=== PATIENT | male | born 1975 | race Caucasian/White ===

== ENCOUNTER 2019-09-21 17:46 | Emergency (ER) | payer SELFPAY ==
[2019-09-21] MEDS ORDERED: LACTATED RINGERS 1,000 ML IV STA (18:11)
[2019-09-21 18:17] LABS: BASOPHILS # (AUTO) 0.1 10^3/uL (0.0-0.1); EOSINOPHILS # (AUTO) 0.1 10^3/uL (0.0-0.7); EOSINOPHILS % (AUTO) 1.5 %; LYMPHOCYTES # (AUTO) 2.2 10^3/uL (1.5-3.5); LYMPHOCYTES % (AUTO) 26.9 %; MEAN CORPUSCULAR HGB CONC 33.6 g/dL (32.0-36.0); MEAN PLATELET VOLUME 10.6 fL (7.4-11.4); MONOCYTES # (AUTO) 1.2 10^3/uL (0.0-1.0); MONOCYTES % (AUTO) 14.6 %; NEUTROPHILS # (AUTO) 4.5 10^3/uL (1.5-6.6); NEUTROPHILS % (AUTO) 55.5 %; PLT - PLATELET COUNT 150 10^3/uL (130-450); RED BLOOD COUNT 2.82 10^6/uL (4.70-6.10); RED CELL DISTRIBUTION WIDTH 19.2 % (12.0-15.0); WHITE BLOOD COUNT 8.1 x10^3/uL (4.8-10.8)
[2019-09-21 18:23] LABS: INR 1.3 (0.8-1.2); PT - PROTHROMBIN TIME 14.8 secs (9.9-12.6)
[2019-09-21 18:28] LABS: ALBUMIN 2.8 g/dL (3.2-5.5); ALBUMIN/GLOBULIN RATIO 0.6 (1.0-2.2); ALKALINE PHOSPHATASE 102 IU/L (42-121); ALT ALANINE AMINOTRANSFERASE 46 IU/L (10-60); AST ASPARTATE AMINOTRANSFERASE 80 IU/L (10-42); BILIRUBIN,TOTAL 2.1 mg/dL (0.2-1.0); BUN - BLOOD UREA NITROGEN 7 mg/dL (6-20); CALCIUM 8.9 mg/dL (8.5-10.3); CARBON DIOXIDE - CO2 27 mmol/L (21-32); CHLORIDE 96 mmol/L (101-111); CREATININE 0.8 mg/dL (0.6-1.2); GLUCOSE 104 mg/dL (70-100); LIPASE 38 U/L (22-51); MAGNESIUM 2.2 mg/dL (1.7-2.8); SODIUM 134 mmol/L (135-145); TOTAL PROTEIN 7.4 g/dL (6.7-8.2)
[2019-09-21 18:30] LABS: PARTIAL THROMBOPLASTIN TIME 31.1 secs (24.9-33.3)
[2019-09-21 18:32] LABS: PLATELET ESTIMATE, MANUAL NORMAL (130-450,000) (NORMAL); PLATELET MORPHOLOGY NORMAL APPEARANCE (NORMAL)
--- NOTE | 2019-09-21 18:39 | XRAY Report ---
PROCEDURE: Chest 1 View X-Ray INDICATIONS: chest pain TECHNIQUE: One view of the chest was acquired. COMPARISON: None. FINDINGS: Surgical changes and devices: None. Lungs and pleura: No pleural effusions or pneumothorax. Mild pulmonary vascular congestion is seen. No definite focal infiltrate. Increased bronchovascular markings in bilateral hilar region are noted with mild bronchial wall thickening. Mediastinum: Mediastinal contours appear normal. Heart size is normal. Bones and chest wall: No suspicious bony lesions. Overlying soft tissues appear unremarkable. IMPRESSION: Finding is suggestive of reactive airway disease such as bronchitis or viral pneumonia. No definite f ocal infiltrate. No pleural effusion or pneumothorax. Reviewed by: Bartolo Rajan MD on 09/21/2019 5:38 PM [facility] Approved by: Bartolo Rajan MD on 09/21/2019 5:38 PM [facility] Station ID: [id number]
--- NOTE | 2019-09-21 19:04 | ED Physician Documentation ---
History of Present Illness - Stated complaint Stated Complaint: ABD PX, SWELLING - Chief complaint Chief Complaint: Abd Pain - History obtained from History obtained from: Patient, Friend - Additonal information Additional information: 43-year-old male presents to the emergency department for evaluation welling and shortness of breath. [place] He reports that he used to be a heavy drinker but quit drinking about 3 to 4 weeks ago. Since then he has noticed that he has had progressive abdominal swelling. He denies that he ever had any type of belly swelling before 1 month ago. In addition to the abdominal swelling he has began to have sharp shooting abdominal pains. He finds that he is labored simply climbing stairs or doing general activities of daily living. He is an active tobacco user but is slowly cutting back. He was told once in the past that he had problems with his liver but due to finances and lack of insurance did not follow-up. He denies taking any scheduled medications. Patient denies any fevers or cough. He denies any chest pain. He denies any black or bloody stools. Review of Systems Constitutional: denies: Fever, Chills, Myalgias Nose: denies: Congestion, Epistaxis Cardiac: reports: Pedal edema. denies: Chest pain / pressure, Palpitations, Calf pain Respiratory: reports: Dyspnea. denies: Cough, Hemoptysis, Wheezing GI: reports: Abdominal Pain, Abdominal Swelling. denies: Nausea, Vomiting, Diarrhea, Hematemesis, Bloody / black stool : denies: Dysuria, Frequency Musculoskeletal: denies: Neck pain, Extremity pain Neurologic: denies: Generalized weakness, Focal weakness, Numbness, Syncope, Seizure, Confused, Altered mental status Psychiatric: denies: Depressed PD PAST MEDICAL HISTORY - Past Medical History Past Medical History: Yes GI: Cirrhosis - Past Surgical History Past Surgical History: No - Present Medications Home Medications: Ambulatory Orders Medication Instructions Recorded Confirmed Spironolactone [Aldactone] 50 mg PO BID #60 tablet 09/21/19 - Allergies Allergies/Adverse Reactions: Allergies Allergy/AdvReac Type Severity Reaction Status Date / Time No Known Drug Allergies Allergy Verified 09/21/19 18:00 - Social History Does the pt smoke?: No Smoking Status: Never smoker Does the pt drink ETOH?: Yes Does the pt have substance abuse?: No PD ED PE EXPANDED - General General: Alert, Anxious - Eyes Eyes: PERRL, Other (no scleral icterus) - Neck Neck: Supple w/out meningeal sx, No tenderness. No: Adenopathy, Limited ROM - Cardiac Cardiac: Tachy, Radial strong equal, Femoral strong equal, Pedal strong equal, Cap refill < 2 sec. No: Murmur Present - Respiratory Respiratory: Clear to ausultation bianka, Labored. No: Distress - Abdomen Abdomen: Normal Bowel sounds, Distended, Tender to palpation (Generally tender to palpation but no guarding or rebound. Non-peritoneal exam), Generalized/diffuse, Hepatomegaly. No: Rebound, Guarding, Surgical scars - Back Back: Normal exam - Derm Derm: Normal color, Warm and dry, Other (Stigmata of ascites and cirrhosis on chest and abdomen). No: Jaundiced - Neuro Neuro: Alert and Oriented X 3, CNII-XII intact, Normal finger nose, Normal speech - GCS Eye Opening: Spontaneous Motor: Obeys Commands Verbal: Oriented Total: 15 Results - Vitals Vitals: Vital Signs - 24 hr 09/21/19 09/21/19 09/21/19 17:54 18:30 19:00 Temperature 36.8 C Heart Rate 142 H 119 H 117 H Respiratory 20 15 18 Rate Blood Pressure 140/86 H 135/90 H 125/92 H O2 Saturation 100 100 100 09/21/19 09/21/19 09/21/19 19:48 20:00 20:30 Temperature Heart Rate 112 H 102 H 99 Respiratory 15 16 11 L Rate Blood Pressure 116/82 H 118/84 H 119/87 H O2 Saturation 100 100 100 09/21/19 09/21/19 09/21/19 21:00 21:30 22:23 Temperature Heart Rate 108 H 106 H 105 H Respiratory 17 16 16 Rate Blood Pressure 122/89 H 106/75 107/76 O2 Saturation 100 100 100 Oxygen O2 Source Room air - EKG (time done) 1821 Rate: Rate (enter#) (123), Tachy, Other Rhythm: Sinus tachycardia [place]: Normal Intervals: Normal CT QRS: Normal Ischemia: Normal ST segments Compare to prior EKG: Old EKG unavailable Computer interpretation: Agree with computer - Labs Labs: Microbiology 09/21/19 20:00 Body Fluid Culture - Preliminary Other - Abdominal Laboratory Tests 09/21/19 09/21/19 09/21/19 18:06 18:06 18:06 WBC 8.1 RBC 2.82 L Hgb 11.0 L Hct 32.7 L MCV 116.0 H MCH 39.0 H MCHC 33.6 RDW 19.2 H Plt Count 150 MPV 10.6 Neut # (Auto) 4.5 Lymph # (Auto) 2.2 Long # (Auto) 1.2 H Eos # (Auto) 0.1 Baso # (Auto) 0.1 Absolute Nucleated RBC 0.00 Nucleated RBC % 0.0 Manual Slide Review Indicated WBC Morphology NORMAL APPEARANCE Platelet Estimate NORMAL (130-450,000) Platelet Morphology NORMAL APPEARANCE RBC Morph Micro Appear 1+ POLYCHROMASIA PT 14.8 H INR 1.3 H APTT 31.1 Sodium 134 L Potassium 3.4 L Chloride 96 L Carbon Dioxide 27 Anion Gap 11.0 BUN 7 Creatinine 0.8 Estimated GFR (MDRD) 105 Glucose 104 H Lactic Acid Calcium 8.9 Magnesium 2.2 Total Bilirubin 2.1 H AST 80 H ALT 46 Alkaline Phosphatase 102 Ammonia B-Natriuretic Peptide Total Protein 7.4 Albumin 2.8 L Globulin 4.6 H Albumin/Globulin Ratio 0.6 L Lipase 38 Fluid Source Fluid Color Fluid Clarity Fluid WBC Fluid RBC Fluid Neutrophils % Fluid Lymphocytes % Fluid Monocytes % Fld Mesothelial Cell % Ethyl Alcohol < 5.0 09/21/19 09/21/19 09/21/19 18:06 18:06 19:21 WBC RBC Hgb Hct MCV MCH MCHC RDW Plt Count MPV Neut # (Auto) Lymph # (Auto) Long # (Auto) Eos # (Auto) Baso # (Auto) Absolute Nucleated RBC Nucleated RBC % Manual Slide Review WBC Morphology Platelet Estimate Platelet Morphology RBC Morph Micro Appear PT INR APTT Sodium Potassium Chloride Carbon Dioxide Anion Gap BUN Creatinine Estimated GFR (MDRD) Glucose Lactic Acid 1.5 Calcium Magnesium Total Bilirubin AST ALT Alkaline Phosphatase Ammonia < 10.0 B-Natriuretic Peptide 128 H Total Protein Albumin Globulin Albumin/Globulin Ratio Lipase Fluid Source Fluid Color Fluid Clarity Fluid WBC Fluid RBC Fluid Neutrophils % Fluid Lymphocytes % Fluid Monocytes % Fld Mesothelial Cell % Ethyl Alcohol 09/21/19 20:00 WBC RBC Hgb Hct MCV MCH MCHC RDW Plt Count MPV Neut # (Auto) Lymph # (Auto) Long # (Auto) Eos # (Auto) Baso # (Auto) Absolute Nucleated RBC Nucleated RBC % Manual Slide Review WBC Morphology Platelet Estimate Platelet Morphology RBC Morph Micro Appear PT INR APTT Sodium Potassium Chloride Carbon Dioxide Anion Gap BUN Creatinine Estimated GFR (MDRD) Glucose Lactic Acid Calcium Magnesium Total Bilirubin AST ALT Alkaline Phosphatase Ammonia B-Natriuretic Peptide Total Protein Albumin Globulin Albumin/Globulin Ratio Lipase Fluid Source PERITONEAL Fluid Color YELLOW Fluid Clarity TURBID Fluid WBC 82 Fluid RBC 3000 Fluid Neutrophils % 68 Fluid Lymphocytes % 29 Fluid Monocytes % 3 Fld Mesothelial Cell % Not Reportable Ethyl Alcohol - Rads (name of study) cxr Radiology: Final report received (Findings suggestive of reactive airway disease such as bronchitis or viral pneumonia no definite focal infiltrate no pleural effusion or pneumothorax) Procedures - Paracentesis Preparation: Consent obtained, Ultrasound guidance, Sterile prep and drape, Local anesthesia Location: RLQ Technique: Z-tract, Catheter over needle Fluid: Clear, Sent for cell count, Sent for gram stain, Sent for culture, Sent for protein, Volume - enter cc (6000) Aftercare: No complications, Patient tolerated well, Dressing applied PD MEDICAL DECISION MAKING - ED course Complexity details: reviewed results, d/w patient ED course: 43-year-old male presents to the emergency department with reported 1 month of abdominal swelling and very apparent ascites on exam. He does report a longstanding history of alcohol abuse but states that he quit drinking approximately 1 month ago. Due to the abdominal swelling he had begun to have increased dyspnea. - On laboratory findings he is noted to have preserved renal function. He does have an AST elevation of 80. And his bilirubin is 2.1. He does not have any signs of systemic jaundice. His BNP is mildly elevated and his chest x-ray does not show any signs of pulmonary edema. I do believe that the dyspnea is most likely related to the large volume of ascites in his abdomen. His ammonia level is normnal and he has no altered mentation - ECG shows sinus tachycardia and he has a negative high sensitivity troponin. He has denies any chest pain - Patient has never had any work-up or treatment of his cirrhosis and now ascites. Given the labored breathing and the volume of ascites we decided to proceed with a therapeutic and diagnostic paracentesis. -Patient's gram stain of the peritoneal fluid is negative. There were no PMNs in the fluid. I confirmed this by speaking with the laboratory department. At this time it does not appear that the patient meets the criteria for SBP despite having fluid described as turbid. In addition this gentleman does not have any leukocytosis or fever. I have discussed this case with the on-call night hospitalist and he also agrees that the ascitic fluid does not meet the criteria for SBP. - Patient's dyspnea has improved markedly since the paracentesis was completed. His heart rate has improved to now just above 100. He is not hypoxic. I have discussed the ascites and diagnosis of cirrhosis with him and his partner. I have also notified them that they need very close follow-up with a primary care doctor and long-term referral to a egg trayer. We will initiate this gentleman on Aldactone. - Explicit return precautions were discussed for any worsening belly pain, development of any fever, black or bloody stools or worsening labored breathing Departure - Departure Disposition: 01 Home, Self Care Clinical Impression: S/P abdominal paracentesis Cirrhosis Qualifiers: Hepatic cirrhosis type: alcoholic cirrhosis Ascites presence: with ascites Qualified Code(s): K70.31 - Alcoholic cirrhosis of liver with ascites Condition: Serious Record reviewed to determine appropriate education?: Yes Instructions: Cirrhosis, Cirrhosis Tx Prescriptions: Spironolactone [Aldactone] 50 mg PO BID #60 tablet Comments: Hiram you have developed cirrhosis of the liver as a long-term complication of drinking. You have now developed ascites which is fluid accumulation within the belly. We have drained 6 L of fluid from your belly today. It does not at this time appear to be infected but we are sending it for a culture to make sure. It is very important that you schedule an appointment with a primary care doctor within the next week. You will need long-term referral and evaluation by a egg trayer. I have also started you on a medication called aldactone this will be used to help reduce your fluid retention. Please take twice a day as prescribed. If it anytime you develop a fever, have worsening belly pain, black or bloody stools feel faint or lightheaded please return immediately to the emergency department.
[2019-09-21] MEDS ORDERED: BUFFERED LIDOCAINE 10 ML SYRINGE IU ONE (19:47)
[2019-09-21 20:51] LABS: CC,BF RBC 3000 /mm^3
[2019-09-21 20:52] LABS: BF CLARITY TURBID; BF COLOR YELLOW; BF SOURCE PERITONEAL
[2019-09-21] MEDS ORDERED: fentaNYL 100 MCG/2 ML VIAL IVP STA (21:41)
[2019-09-21 21:44] LABS: LYMPHOCYTES %,BODY FLUID 29 %; MONOCYTES %,BODY FLUID 3 %
[2019-09-21 22:35] VITALS: BP 103/82
== END 2019-09-21 22:45 | disposition home or self-care (01) ==
LOC: ED 17:46
DX: K70.31 Alcoholic cirrhosis of liver with ascites (principal); F10.21 Alcohol dependence, in remission; R00.0 Tachycardia, unspecified; F17.200 Nicotine dependence, unspecified, uncomplicated
CPT/HCPCS: 36415; 49083; 71045; 80053; 80320; 81599; 82140; 83605; 83690; 83735; 83880; 85025; 85610; 85730; 87070; 87205; 89051; 93005; 96361; 96374; 99284; J7120; 84157

== ENCOUNTER 2019-10-04 15:32 | Emergency (ER) | payer MEDICAID ==
--- NOTE | 2019-10-04 16:59 | ED Physician Documentation ---
PD HPI ABD PAIN - Stated complaint Stated Complaint: ABD SWELLING - Chief complaint Chief Complaint: Abd Pain - History obtained from History obtained from: Patient, Family - History of Present Illness Timing - onset: How many days ago (5) Timing - duration: Weeks Timing - details: Gradual onset, Still present Quality: Dull, Pain Location: All over / everywhere Improved by: Laying still Worsened by: Eating, Moving, Breathing, Position, Palpation Associated symptoms: Nausea. No: Vomiting Similar symptoms before: Diagnosis (ascites) Recently seen: Clinic, Emergency Dept - Additional information Additional information: 43-year-old male with a history of recently diagnosed cirrhosis with ascites returns to the emergency department today with reaccumulation of his ascites and some difficulty breathing. He is very uncomfortable at night has not been able to sleep for the past 3 nights and he is seeking drainage. He has been in to see Dr. Zepeda he is on 100 mg of Spironolactone daily and he is not on Lasix. He has not had follow-up with GI as yet. Review of Systems Constitutional: reports: Fatigue. denies: Fever, Chills Eyes: denies: Decreased vision Ears: denies: Ear pain Nose: denies: Rhinorrhea / runny nose, Congestion Throat: denies: Sore throat Cardiac: reports: Pedal edema. denies: Chest pain / pressure, Palpitations, Calf pain Respiratory: reports: Dyspnea. denies: Cough GI: reports: Abdominal Pain, Nausea : denies: Dysuria, Frequency Skin: denies: Rash Musculoskeletal: denies: Neck pain, Back pain, Extremity pain Neurologic: reports: Generalized weakness. denies: Focal weakness, Numbness PD PAST MEDICAL HISTORY - Past Medical History Cardiovascular: None Respiratory: None Endocrine/Autoimmune: None GI: Cirrhosis : None HEENT: None Psych: None Musculoskeletal: None Derm: None - Past Surgical History Past Surgical History: No Derm: Skin grafts - Present Medications Home Medications: Ambulatory Orders Medication Instructions Recorded Confirmed Spironolactone [Aldactone] 50 mg PO BID #60 tablet 09/21/19 Furosemide [Lasix] 40 mg PO DAILY #20 tablet 10/04/19 - Allergies Allergies/Adverse Reactions: Allergies Allergy/AdvReac Type Severity Reaction Status Date / Time No Known Drug Allergies Allergy Verified 09/21/19 18:00 - Social History Does the pt smoke?: Yes Smoking Status: Current every day smoker Does the pt drink ETOH?: No Does the pt have substance abuse?: No - Immunizations Immunizations are current?: Yes PD ED PE NORMAL - Vitals Vital signs reviewed: Yes (tachy and hypertensive) - General General: Alert and oriented X 3, Well developed/nourished, Other (grunting with breaths) - HEENT HEENT: Atraumatic, PERRL, EOMI - Neck Neck: Supple, no meningeal sign, No bony TTP - Cardiac Cardiac: No murmur, Other (tachy to 120) - Respiratory Respiratory: No respiratory distress, Clear bilaterally - Abdomen Abdomen: Other (marked distention with a fluid wave and caput. Mild generalized tenderness) - Back Back: No CVA TTP, No spinal TTP - Derm Derm: Normal color, Warm and dry, No rash - Extremities Extremities: No deformity, No calf tenderness / cord, Other (trace edema ) - Neuro Neuro: Alert and oriented X 3, band teacher 2-12 intact, No motor deficit, No sensory deficit, Normal speech Eye Opening: Spontaneous Motor: Obeys Commands Verbal: Oriented GCS Score: 15 - Psych Psych: Normal mood, Normal affect Results - Vitals Vitals: Vital Signs - 24 hr 10/04/19 10/04/19 10/04/19 15:44 16:20 18:00 Temperature 36.7 C 36.3 C L Heart Rate 128 H 120 H 112 H Respiratory 16 20 18 Rate Blood Pressure 132/96 H 148/100 H 134/96 H O2 Saturation 100 100 10/04/19 18:59 Temperature Heart Rate 108 H Respiratory 19 Rate Blood Pressure 134/96 H O2 Saturation 100 Oxygen O2 Source Room air - Labs Labs: Laboratory Tests 10/04/19 10/04/19 10/04/19 16:55 16:55 16:55 WBC 5.7 RBC 2.97 L Hgb 11.3 L Hct 33.7 L MCV 113.5 H MCH 38.0 H MCHC 33.5 RDW 16.2 H Plt Count 175 MPV 10.1 Neut # (Auto) 3.1 Lymph # (Auto) 1.7 [place] # (Auto) 0.7 Eos # (Auto) 0.1 Baso # (Auto) 0.1 Absolute Nucleated RBC 0.00 Nucleated RBC % 0.0 Manual Slide Review Indicated Platelet Estimate NORMAL (130-450,000) Platelet Morphology NORMAL APPEARANCE RBC Morph Micro Appear 1+ MACROCYTOSIS PT 16.1 H INR 1.4 H Sodium 130 L Potassium 4.2 Chloride 98 L Carbon Dioxide 25 Anion Gap 7.0 BUN 6 Creatinine 0.9 Estimated GFR (MDRD) 92 Glucose 97 Calcium 8.5 Total Bilirubin 1.8 H AST 50 H ALT 32 Alkaline Phosphatase 74 Ammonia Total Protein 6.9 Albumin 2.7 L Globulin 4.2 Albumin/Globulin Ratio 0.6 L Lipase 34 Fluid Source Fluid Color Fluid Clarity Fluid WBC Fluid RBC Fluid Neutrophils % Fluid Lymphocytes % Fluid Monocytes % Fluid Macrophages % Fld Mesothelial Cell % Ethyl Alcohol < 5.0 10/04/19 10/04/19 16:55 18:52 WBC RBC Hgb Hct MCV MCH MCHC RDW Plt Count MPV Neut # (Auto) Lymph # (Auto) [place] # (Auto) Eos # (Auto) Baso # (Auto) Absolute Nucleated RBC Nucleated RBC % Manual Slide Review Platelet Estimate Platelet Morphology RBC Morph Micro Appear PT INR Sodium Potassium Chloride Carbon Dioxide Anion Gap BUN Creatinine Estimated GFR (MDRD) Glucose Calcium Total Bilirubin AST ALT Alkaline Phosphatase Ammonia < 10.0 Total Protein Albumin Globulin Albumin/Globulin Ratio Lipase Fluid Source PERITONEAL Fluid Color YELLOW Fluid Clarity HAZY Fluid WBC 93 Fluid RBC < 2000 Fluid Neutrophils % 7.0 Fluid Lymphocytes % 12.0 Fluid Monocytes % 6.0 Fluid Macrophages % 75.0 Fld Mesothelial Cell % 0 Ethyl Alcohol Procedures - Paracentesis Preparation: Consent obtained, Ultrasound guidance, Sterile prep and drape, Local anesthesia Location: LLQ Technique: Z-tract, Catheter over needle Fluid: Cloudy, Sent for cell count, Sent for gram stain, Sent for culture, Volume - enter cc (9500) Aftercare: No complications, Patient tolerated well, Dressing applied, Bleeding - comment (none), Fluid leak - comment (none) PD MEDICAL DECISION MAKING - ED course Complexity details: reviewed old records, reviewed results, re-evaluated patient, considered differential, d/w patient, d/w family ED course: 43-year-old male with tense ascites has paracentesis performed with drainage of 9500 mls of fluid. He tolerated this well and is administered 50 g of albumin. We will place him on 40 mg of Lasix in addition to the 100 mg of spironolactone that he is currently taking. Today blood work for hepatitis C is obtained and he will follow-up with his primary while awaiting follow-up with GI. Departure - Departure Disposition: 01 Home, Self Care Clinical Impression: S/P abdominal paracentesis Cirrhosis Qualifiers: Hepatic cirrhosis type: alcoholic cirrhosis Ascites presence: with ascites Qualified Code(s): K70.31 - Alcoholic cirrhosis of liver with ascites Condition: Stable Instructions: Paracentesis, ED Ascites, ED Cirrhosis Liver, ED Diet Low Salt 2Gm Follow-Up: BRIELLE ZEPEDA MD [Primary Care Provider] - Prescriptions: Furosemide [Lasix] 40 mg PO DAILY #20 tablet Comments: Today we are adding Lasix as an additional medication and this is another diuretic. It will make you urinate frequently. The recommendation is to take both the spironalactone and the lasix together in the morning. Weigh yourself daily and bring the results to Dr. Zepeda. The low sodium diet is very important to making this work. Even with good diuresis you may require paracentesis every 2 weeks. This can be done as an outpatient.
[2019-10-04 17:02] LABS: BASOPHILS # (AUTO) 0.1 10^3/uL (0.0-0.1); BASOPHILS % (AUTO) 0.9 %; EOSINOPHILS # (AUTO) 0.1 10^3/uL (0.0-0.7); EOSINOPHILS % (AUTO) 2.5 %; HGB - HEMOGLOBIN 11.3 g/dL (14.0-18.0); LYMPHOCYTES # (AUTO) 1.7 10^3/uL (1.5-3.5); LYMPHOCYTES % (AUTO) 30.3 %; MEAN CORPUSCULAR HGB CONC 33.5 g/dL (32.0-36.0); MEAN CORPUSCULAR VOLUME 113.5 fL (80.0-94.0); MEAN PLATELET VOLUME 10.1 fL (7.4-11.4); MONOCYTES # (AUTO) 0.7 10^3/uL (0.0-1.0); MONOCYTES % (AUTO) 11.4 %; NEUTROPHILS # (AUTO) 3.1 10^3/uL (1.5-6.6); NEUTROPHILS % (AUTO) 54.5 %; PLT - PLATELET COUNT 175 10^3/uL (130-450); RED BLOOD COUNT 2.97 10^6/uL (4.70-6.10); RED CELL DISTRIBUTION WIDTH 16.2 % (12.0-15.0); WHITE BLOOD COUNT 5.7 x10^3/uL (4.8-10.8)
[2019-10-04 17:11] LABS: INR 1.4 (0.8-1.2); PT - PROTHROMBIN TIME 16.1 secs (9.9-12.6)
[2019-10-04 17:16] LABS: ALBUMIN 2.7 g/dL (3.2-5.5); ALBUMIN/GLOBULIN RATIO 0.6 (1.0-2.2); ALKALINE PHOSPHATASE 74 IU/L (42-121); ALT ALANINE AMINOTRANSFERASE 32 IU/L (10-60); AST ASPARTATE AMINOTRANSFERASE 50 IU/L (10-42); BILIRUBIN,TOTAL 1.8 mg/dL (0.2-1.0); BUN - BLOOD UREA NITROGEN 6 mg/dL (6-20); CALCIUM 8.5 mg/dL (8.5-10.3); CARBON DIOXIDE - CO2 25 mmol/L (21-32); CHLORIDE 98 mmol/L (101-111); CREATININE 0.9 mg/dL (0.6-1.2); GLUCOSE 97 mg/dL (70-100); LIPASE 34 U/L (22-51); SODIUM 130 mmol/L (135-145); TOTAL PROTEIN 6.9 g/dL (6.7-8.2)
[2019-10-04 17:36] LABS: PLATELET ESTIMATE, MANUAL NORMAL (130-450,000) (NORMAL); PLATELET MORPHOLOGY NORMAL APPEARANCE (NORMAL); RBC MORPHOLOGY (MULTIPLE) 1+ MACROCYTOSIS (NORMAL)
[2019-10-04] MEDS ORDERED: ALBUMIN 25% 12.5 GM/50 ML VIAL IV STA ×4 (18:56→18:59)
[2019-10-04 19:21] LABS: BF CLARITY HAZY; BF SOURCE PERITONEAL; CC,BF RBC < 2000 /mm^3
[2019-10-04 19:22] LABS: BF COLOR YELLOW
[2019-10-04 19:56] LABS: MESOTHELIAL %, BF 0 %
[2019-10-05 00:30] VITALS: BP 118/79
[2019-10-05 13:46] LABS: HEPATITIS C ANTIBODY NON-REACTIVE (NON-REACTIVE)
== END 2019-10-05 00:29 | disposition home or self-care (01) ==
LOC: ED 15:32
DX: K70.31 Alcoholic cirrhosis of liver with ascites (principal); R00.0 Tachycardia, unspecified; R03.0 Elevated blood-pressure reading, without diagnosis of hypertension; F17.200 Nicotine dependence, unspecified, uncomplicated
CPT/HCPCS: 36415; 49083; 80053; 80320; 82140; 83690; 85025; 85610; 86803; 87070; 87205; 89051; 96365; 96366; 99284; P9047

== ENCOUNTER 2019-10-10 07:57 | Outpatient (CLI) | payer MEDICAID ==
[2019-10-10 12:17] LABS: BASOPHILS # (AUTO) 0.1 10^3/uL (0.0-0.1); BASOPHILS % (AUTO) 1.1 %; EOSINOPHILS # (AUTO) 0.3 10^3/uL (0.0-0.7); EOSINOPHILS % (AUTO) 2.9 %; HGB - HEMOGLOBIN 12.3 g/dL (14.0-18.0); LYMPHOCYTES # (AUTO) 2.7 10^3/uL (1.5-3.5); LYMPHOCYTES % (AUTO) 30.1 %; MEAN CORPUSCULAR HEMOGLOBIN 36.2 pg (27.0-31.0); MEAN CORPUSCULAR HGB CONC 32.3 g/dL (32.0-36.0); MEAN CORPUSCULAR VOLUME 112.1 fL (80.0-94.0); MEAN PLATELET VOLUME 11.1 fL (7.4-11.4); MONOCYTES # (AUTO) 0.8 10^3/uL (0.0-1.0); MONOCYTES % (AUTO) 8.7 %; NEUTROPHILS # (AUTO) 5.1 10^3/uL (1.5-6.6); NEUTROPHILS % (AUTO) 56.9 %; PLT - PLATELET COUNT 207 10^3/uL (130-450)
[2019-10-10 12:34] LABS: PLATELET ESTIMATE, MANUAL NORMAL (130-450,000) (NORMAL); PLATELET MORPHOLOGY NORMAL APPEARANCE (NORMAL); RBC MORPHOLOGY (MULTIPLE) 2+ MACROCYTOSIS (NORMAL)
[2019-10-10 12:35] LABS: ALBUMIN 3.3 g/dL (3.2-5.5); ALBUMIN/GLOBULIN RATIO 0.6 (1.0-2.2); ALKALINE PHOSPHATASE 106 IU/L (42-121); ALT ALANINE AMINOTRANSFERASE 41 IU/L (10-60); AST ASPARTATE AMINOTRANSFERASE 57 IU/L (10-42); BILIRUBIN,TOTAL 1.4 mg/dL (0.2-1.0); BUN - BLOOD UREA NITROGEN 12 mg/dL (6-20); CALCIUM 9.1 mg/dL (8.5-10.3); CARBON DIOXIDE - CO2 27 mmol/L (21-32); CHLORIDE 96 mmol/L (101-111); CHOL/HDL RATIO 5.4 (<5.0); CHOLESTEROL 129 mg/dL; GLUCOSE 119 mg/dL (70-100); HDL CHOLESTEROL 24 mg/dL; LDL CHOLESTEROL,CALCULATED 90 mg/dL; LDL/HDL RATIO 3.8 (<3.6); SODIUM 131 mmol/L (135-145); TOTAL PROTEIN 8.4 g/dL (6.7-8.2); VLDL CHOLESTEROL 15 mg/dL
== END 2019-10-10 23:59 | disposition home or self-care (01) ==
LOC: LAB.WCP 07:57
PROVIDERS: ATTEND Family Medicine
DX: K74.60 Unspecified cirrhosis of liver (principal)
CPT/HCPCS: 36415; 80050; 80061; 83721; 83880

== ENCOUNTER 2020-02-23 19:51 | Outpatient (CLI) | payer MEDICAID | END 2020-02-23 19:52 | disposition home or self-care (01) | LOC: COV 19:51 | PROVIDERS: ATTEND Surgery | DX: Z01.812 Encounter for preprocedural laboratory examination (principal); Z20.822 Contact with and (suspected) exposure to COVID-19; K40.90 Unilateral inguinal hernia, without obstruction or gangrene, not specified as recurrent ==

== ENCOUNTER 2020-02-27 09:16 | Day surgery (SDC) | payer MEDICAID ==
[2020-02-27] MEDS ORDERED: ceFAZolin 2 GM/50 ML 2 GM/50 ML BAG IV ONE (09:23)
[2020-02-27] MEDS ORDERED: LACTATED RINGERS 1,000 ML IV ONE ×2 (09:51→13:34)
[2020-02-27] MEDS ORDERED: ATROPINE ABBOJECT 1 MG/10 ML SYRINGE IVP PRN (09:57)
[2020-02-27] MEDS ORDERED: MORPHINE 2 MG/ML CARPUJECT IVP PRN (09:57)
[2020-02-27] MEDS ORDERED: ePHEDrine 50 MG/ML VIAL IVP PRN (09:57)
[2020-02-27] MEDS ORDERED: HYDROmorphone 0.5 MG/0.5 ML SYRINGE IVP PRN (09:57)
[2020-02-27] MEDS ORDERED: ONDANSETRON 4 MG/2 ML VIAL IVP PRN (09:57)
[2020-02-27] MEDS ORDERED: fentaNYL 100 MCG/2 ML VIAL IVP PRN (09:57)
[2020-02-27] MEDS ORDERED: NALOXONE 0.4 MG/ML VIAL IVP PRN (09:57)
[2020-02-27] MEDS ORDERED: LACTATED RINGERS 1,000 ML IV SCH (10:00)
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
[2020-02-27] MEDS ORDERED: BUPIVACAINE 0.25% PF 30 ML VIAL ONE (11:38)
[2020-02-27] MEDS ORDERED: BUPIVACAINE 0.25% PF 30 ML VIAL SUBQ ONE (11:45)
[2020-02-27] MEDS ORDERED: MIDAZOLAM 2 MG/2 ML VIAL ONE (11:47)
[2020-02-27] MEDS ORDERED: PROPOFOL 200 MG/20 ML VIAL IVP ONE (11:47)
[2020-02-27] MEDS ORDERED: fentaNYL 100 MCG/2 ML VIAL ONE (11:47)
[2020-02-27] MEDS ORDERED: LIDOCAINE-MPF 2% 5 ML VIAL ONE (11:47)
[2020-02-27] MEDS ORDERED: DEXAMETHASONE 4 MG/ML VIAL ONE (13:08)
[2020-02-27] MEDS ORDERED: ONDANSETRON 4 MG/2 ML VIAL ONE (13:08)
[2020-02-27 13:49] VITALS: BP 114/77
[2020-02-27] MEDS ORDERED: oxyCODONE 5 MG TABLET PO PRN (13:49)
--- NOTE | 2020-02-27 14:04 | OPERATIVE REPORT ---
Operative Report - General Procedure Date: 02/27/20 Planned Procedure: open right inguinal hernia repair with mesh Pre-Op Diagnosis: rih Procedure Performed: open rih repair with mesh Post Op Diagnosis: rih, incarcerated - Procedure Note Primary Surgeon: roger cardona Anesthesia Technique: General LMA, Local Estimated Blood Loss (mL): 0 Findings: large direct Complications: none
--- NOTE | 2020-02-27 14:50 | OPERATIVE REPORT ---
DATE OF SERVICE: 02/27/2020 Physician: Fermin Sy MD PREOPERATIVE DIAGNOSIS: Right inguinal hernia. POSTOPERATIVE DIAGNOSIS: Right inguinal hernia, large incarcerated direct. PROCEDURE: Open right inguinal hernia repair with mesh, Domenica. SURGEON: Fermin Sy MD APPLICATION SECURITY SPECIALIST: None. ANESTHESIA 1. Laryngeal mask anesthesia. 2. Local anesthesia with Marcaine. COMPLICATIONS: None. SPECIMEN: Herniated preperitoneal adipose tissue removed; however, not sent for pathology. FINDINGS: Large incarcerated direct inguinal hernia. No indirect component. Typical nerve anatomy, which was carefully protected and preserved. INDICATIONS FOR PROCEDURE: The patient is a 44-year-old gentleman who fairly recently had significant ascites. He has quit drinking alcohol and his ascites is much improved. He has a symptomatic right inguinal hernia with intestine clinically. He presents for open repair with mesh. Risks discussed, alternatives discussed. All questions answered and consent obtained. DETAILS OF PROCEDURE: The patient was properly identified and brought to the operating room and placed in supine position. Laryngeal mask anesthesia was induced. He was prepped and draped in a sterile fashion, given preoperative antibiotics. Local anesthetic was given throughout the procedure. A 5 cm incision was made in the direction of Laurel's lines just cephalad of the pubic tubercle. Dissection proceeded with cutting current. The superficial epigastric vein was identified, clamped, divided, and tied with 3-0 Vicryl. Dissection proceeded down to the aponeurosis. The aponeurosis was opened in the direction of its fibers extending to the external ring. The ilioinguinal nerve was kept with the cord structures. The cord structures were mobilized and brought up. He had a large direct hernia bulge densely scarred to the cord structures. This was carefully peeled off from the cord structures. The direct inguinal hernia or floor was repaired and reduced with a 2-0 silk pursestring suture. Polypropylene mesh was then cut to size and with tails. The mesh was secured with multiple interrupted 0 Ethibond sutures. Sutures were placed at the pubic tubercle along the shelving border of Poupart's ligament and medially along the musculature or fascia of the internal oblique. The iliohypogastric nerve lay just medial to the mesh. The medial tail of the mesh was secured to the shelving border of Poupart's ligament with 2 interrupted 0 Ethibond sutures, recreating the internal ring of appropriate size. The aponeurosis was closed with a running 2-0 Vicryl. Chato's was closed with interrupted 3-0 Vicryl suture. Buried interrupted subdermal 3-0 Vicryl sutures were then placed. Skin was closed with a running 4-0 Monocryl subcuticular suture. Dressing was applied. He tolerated the procedure very well. TD: 02/27/2020 14:11 [facility]
--- NOTE | 2020-02-27 14:58 | ANESTHESIA POST OP EVALUATION ---
Anesthesia Post Eval - Post Anesthesia Eval Vitals: Last Vital Signs Temp 37.4 C 02/27/20 13:48 Pulse 89 02/27/20 13:48 Resp 18 02/27/20 13:48 BP 114/77 02/27/20 13:48 Pulse Ox 100 02/27/20 13:48 CV Function Including HR & BP: positive: Stable Pain Control: positive: Satisfactory Nausea & Vomiting: positive: Negative Mental Status: positive: Baseline Respiratory Status: Airway Patent Hydration Status: Satisfactory
== END 2020-02-27 09:17 | disposition home or self-care (01) ==
LOC: SDS 09:16
PROVIDERS: ATTEND Surgery
DX: K40.30 Unilateral inguinal hernia, with obstruction, without gangrene, not specified as recurrent (principal); F17.210 Nicotine dependence, cigarettes, uncomplicated; F10.11 Alcohol abuse, in remission; K74.60 Unspecified cirrhosis of liver; G62.9 Polyneuropathy, unspecified; E66.3 Overweight; Z68.27 Body mass index [BMI] 27.0-27.9, adult
CPT/HCPCS: 49507; C1781; J0690; J7120

== ENCOUNTER 2020-03-29 12:37 | Outpatient (CLI) | payer MEDICAID | END 2020-03-29 12:38 | disposition home or self-care (01) | LOC: COV 12:37 | PROVIDERS: ATTEND Surgery | DX: Z01.812 Encounter for preprocedural laboratory examination (principal); K42.9 Umbilical hernia without obstruction or gangrene; Z20.822 Contact with and (suspected) exposure to COVID-19 ==

== ENCOUNTER 2020-04-02 07:39 | Day surgery (SDC) | payer MEDICAID ==
[2020-04-02] MEDS ORDERED: ceFAZolin 2 GM/50 ML 2 GM/50 ML BAG IV ONE (07:56)
[2020-04-02] MEDS ORDERED: LACTATED RINGERS 1,000 ML IV ONE ×2 (07:57→10:50)
[2020-04-02] MEDS ORDERED: LIDOCAINE-MPF 2% 5 ML VIAL ONE (08:21)
[2020-04-02] MEDS ORDERED: MIDAZOLAM 2 MG/2 ML VIAL ONE (08:21)
[2020-04-02] MEDS ORDERED: fentaNYL 100 MCG/2 ML VIAL ONE (08:21)
[2020-04-02] MEDS ORDERED: PROPOFOL 200 MG/20 ML VIAL IVP ONE ×2 (08:21→09:44)
[2020-04-02] MEDS ORDERED: KETOROLAC 30 MG/ML VIAL ONE (08:22)
[2020-04-02] MEDS ORDERED: DEXAMETHASONE 4 MG/ML VIAL ONE (08:22)
[2020-04-02] MEDS ORDERED: ONDANSETRON 4 MG/2 ML VIAL ONE (08:22)
--- NOTE | 2020-04-02 08:31 | ANESTHESIA ---
Pre-Anesthesia VS, & Labs - Diagnosis umbilical hernia - Procedure umbilical hernia repair Vital Signs: Temp Pulse Resp BP Pulse Ox 37.2 C 120 H 20 154/114 H 100 04/02/20 07:57 04/02/20 07:57 04/02/20 07:57 04/02/20 07:57 04/02/20 07:57 Height: 5 ft 9 in Weight (kg): 81 kg Body Mass Index: 26.4 BMI Classification: Overweight - NPO >8 hours Home Medications and Allergies DULoxetine [Cymbalta] 60 mg PO DAILY 02/19/20 Gabapentin [Neurontin] 300 mg PO TID 02/19/20 Spironolactone [Aldactone] 100 mg PO DAILY 02/19/20 Allergies/Adverse Reactions: Allergies Allergy/AdvReac Type Severity Reaction Status Date / Time No Known Drug Allergies Allergy Verified 09/21/19 18:00 Anes History & Medical History - Anesthetic History Anesthesia Complications: reports: No previous complications - Medical History Cardiovascular: reports: None Pulmonary: reports: None Gastrointestinal: reports: Cirrhosis Urinary: reports: None Neuro: reports: Peripheral neuropathy Musculoskeletal: reports: None Endocrine/Autoimmune: reports: None Blood Disorders: reports: None Skin: reports: None Smoking Status: Current every day smoker (3/4 pack per day x30 years) History of Cancer?: No - Surgical History General: reports: Other Eyes Ears Nose Throat (EENT): reports: Other Dermatologic: reports: Skin grafts Exam General: Alert Dental: WNL, Partials Upper, Poor dentition Mouth Opening: Greater than 4 Fingerbreadths Neck Mobility: Normal Mallampati classification: II Thyromental Distance: greater than 6 cm Respiratory: Lungs clear Cardiovascular: Regular rate Plan Anesthesia Type: General Consent for Procedure(s) Verified and Reviewed: Yes Code Status: Attempt Resuscitation ASA classification: 2-Mild systemic disease Is this case an emergency?: No
[2020-04-02] MEDS ORDERED: HYDROmorphone 0.5 MG/0.5 ML SYRINGE IVP PRN (08:37)
[2020-04-02] MEDS ORDERED: ePHEDrine 50 MG/ML VIAL IVP PRN (08:37)
[2020-04-02] MEDS ORDERED: ONDANSETRON 4 MG/2 ML VIAL IVP PRN (08:37)
[2020-04-02] MEDS ORDERED: MORPHINE 2 MG/ML CARPUJECT IVP PRN (08:37)
[2020-04-02] MEDS ORDERED: NALOXONE 0.4 MG/ML VIAL IVP PRN (08:37)
[2020-04-02] MEDS ORDERED: ATROPINE ABBOJECT 1 MG/10 ML SYRINGE IVP PRN (08:37)
[2020-04-02] MEDS ORDERED: METOCLOPRAMIDE 10 MG/2 ML VIAL IVP PRN (08:37)
[2020-04-02] MEDS ORDERED: fentaNYL 100 MCG/2 ML VIAL IVP PRN (08:37)
[2020-04-02] MEDS ORDERED: LACTATED RINGERS 1,000 ML IV SCH (09:00)
[2020-04-02] MEDS ORDERED: BUPIVACAINE 0.5% PF 30 ML VIAL ONE (09:31)
[2020-04-02] MEDS ORDERED: BUPIVACAINE 0.5% PF 30 ML VIAL INFIL ONE ×2 (09:54)
[2020-04-02] MEDS ORDERED: oxyCODONE 5 MG TABLET PO PRN (11:19)
--- NOTE | 2020-04-02 11:19 | OPERATIVE REPORT ---
Operative Report - General Procedure Date: 04/02/20 Planned Procedure: umbilical hernia repair Pre-Op Diagnosis: umbilical hernia Procedure Performed: umbilical hernia repair with mesh Post Op Diagnosis: umbilical hernia - Procedure Note Primary Surgeon: roger cardona Anesthesia Technique: General LMA, Local Estimated Blood Loss (mL): 20 Complications: none
[2020-04-02] MEDS ORDERED: oxyCODONE 5 MG TABLET ONE (11:39)
--- NOTE | 2020-04-02 11:49 | OPERATIVE REPORT ---
DATE OF SERVICE: 04/02/2020 Physician: Fermin Sy MD PREOPERATIVE DIAGNOSIS: Umbilical hernia. POSTOPERATIVE DIAGNOSIS: Umbilical hernia. PROCEDURES PERFORMED: 1. Open umbilical hernia repair with mesh. 2. Preperitoneal dissection for mesh placement. SURGEON: Fermin Sy MD ENGINEERING INSTRUCTOR: None. ANESTHESIA 1. Laryngeal mask anesthesia. 2. Local anesthesia with Marcaine. COMPLICATIONS: None. SPECIMEN: None. ESTIMATED BLOOD LOSS: 20 mL DRAINS: None. FINDINGS: A 2.5 cm fascial defect. No apparent ascites. INDICATIONS FOR PROCEDURE: The patient is a 44-year-old gentleman with history of significant alcohol use and development of ascites. He quit drinking approximately 9 months ago and his ascites has resolved. He presents for open umbilical hernia repair with mesh. Risks discussed, alternatives discussed, all questions answered and consent obtained. DESCRIPTION OF PROCEDURE: The patient was properly identified and brought to the operating room and placed in supine position. Laryngeal mask anesthesia was induced. He was prepped and draped in a sterile fashion and given preoperative antibiotics. Sequential compression devices were used. Local anesthetic was given throughout the procedure. A 3.5-4 cm incision was made. Dissection proceeded sharply. The umbilical skin was sharply excised away from the hernia sac. The hernia sac was mobilized away from surrounding subcutaneous tissue down to the fascia. The hernia sac was then mobilized with careful use of cutting current cautery. The preperitoneal space was developed. A polypropylene mesh approximately 2.5 in diameter was placed preperitoneal and secured with 9 interrupted 0 Ti-Cron sutures. The fascia was then closed over the mesh with additional 0 Ethibond sutures. The umbilical skin was tacked back down to fascia with interrupted 2-0 Vicryl. Subcutaneous tissue was closed with interrupted 2-0 Vicryl. Buried interrupted subdermal 3-0 Vicryl sutures were then placed. Skin was closed with a running 4-0 Monocryl subcuticular suture. Dressing was applied. He tolerated the procedure very well. TD: 04/02/2020 11:42 [facility]
[2020-04-02 12:03] VITALS: BP 140/89
--- NOTE | 2020-04-02 13:52 | ANESTHESIA POST OP EVALUATION ---
Anesthesia Post Eval - Post Anesthesia Eval Vitals: Last Vital Signs Temp 36.6 C 04/02/20 12:02 Pulse 80 04/02/20 12:02 Resp 15 04/02/20 12:02 BP 140/89 H 04/02/20 12:02 Pulse Ox 96 04/02/20 12:02 CV Function Including HR & BP: positive: Stable Pain Control: positive: Satisfactory Nausea & Vomiting: positive: Negative Mental Status: positive: Baseline Respiratory Status: Airway Patent Hydration Status: Satisfactory Anesthesia Complications: positive: None
== END 2020-04-02 07:40 | disposition home or self-care (01) ==
LOC: SDS 07:39
PROVIDERS: ATTEND Surgery
DX: K42.9 Umbilical hernia without obstruction or gangrene (principal); K70.30 Alcoholic cirrhosis of liver without ascites; F10.11 Alcohol abuse, in remission; G62.9 Polyneuropathy, unspecified; F17.210 Nicotine dependence, cigarettes, uncomplicated; E66.3 Overweight; Z68.26 Body mass index [BMI] 26.0-26.9, adult
CPT/HCPCS: 49585; A9270; C1781; J0690; J7120

== ENCOUNTER 2020-04-19 14:18 | Outpatient (CLI) | payer MEDICAID ==
[2020-04-19 14:47] LABS: BASOPHILS # (AUTO) 0.1 10^3/uL (0.0-0.1); BASOPHILS % (AUTO) 1.3 %; EOSINOPHILS # (AUTO) 0.4 10^3/uL (0.0-0.7); HCT - HEMATOCRIT 45.5 % (42.0-52.0); HGB - HEMOGLOBIN 14.8 g/dL (14.0-18.0); LYMPHOCYTES # (AUTO) 2.9 10^3/uL (1.5-3.5); LYMPHOCYTES % (AUTO) 41.9 %; MEAN CORPUSCULAR HEMOGLOBIN 31.6 pg (27.0-31.0); MEAN CORPUSCULAR HGB CONC 32.5 g/dL (32.0-36.0); MEAN PLATELET VOLUME 11.9 fL (7.4-11.4); MONOCYTES # (AUTO) 0.4 10^3/uL (0.0-1.0); MONOCYTES % (AUTO) 5.9 %; NEUTROPHILS # (AUTO) 3.1 10^3/uL (1.5-6.6); NEUTROPHILS % (AUTO) 44.6 %; PLT - PLATELET COUNT 141 10^3/uL (130-450); RED BLOOD COUNT 4.69 10^6/uL (4.70-6.10); WHITE BLOOD COUNT 6.8 x10^3/uL (4.8-10.8)
[2020-04-19 14:57] LABS: INR 1.1 (0.8-1.2); PT - PROTHROMBIN TIME 12.4 secs (9.9-12.6)
[2020-04-19 14:58] LABS: ALBUMIN/GLOBULIN RATIO 1.1 (1.0-2.2); BILIRUBIN,TOTAL 0.9 mg/dL (0.2-1.0); CALCIUM 9.5 mg/dL (8.5-10.3); POTASSIUM 3.6 mmol/L (3.5-5.0); TOTAL PROTEIN 9.4 g/dL (6.7-8.2)
[2020-04-19 15:16] LABS: THYROID STIMULATING HORMONE 1.1 uIU/mL (0.34-5.60)
[2020-04-19 15:25] LABS: ESTIMATED AVERAGE GLUCOSE 100 mg/dL (70-100); HEMOGLOBIN A1c% 5.1 % (4.27-6.07)
== END 2020-04-19 14:19 | disposition home or self-care (01) ==
LOC: LAB 14:18
PROVIDERS: ATTEND Internal Medicine
DX: M79.2 Neuralgia and neuritis, unspecified (principal); K74.60 Unspecified cirrhosis of liver
CPT/HCPCS: 36415; 80050; 81599; 82105; 82140; 82607; 83036; 84155; 84165; 85610; 86334

== ENCOUNTER 2020-06-18 04:04 | Outpatient (CLI) | payer MEDICAID | END 2020-06-18 04:05 | disposition critical access hospital (66) | LOC: EMS 04:04 | DX: R55 Syncope and collapse (principal) | CPT/HCPCS: A0425; A0427; A0999 ==

== ENCOUNTER 2020-06-18 04:19 | Emergency (ER) | payer MEDICAID ==
--- NOTE | 2020-06-18 04:20 | ED Physician Documentation ---
PD HPI SYNCOPE - Stated complaint Stated Complaint: SYNCOPE, ? SZ - History obtained from History obtained from: Patient, Family, EMS - History of Present Illness Witnessed: Witnessed Timing - onset: How many minutes ago (approximately 30 minutes [employer]) Duration: Minutes Preceding symptoms: Light headed, Generalized weakness Associated symptoms: Seizure Injury occurred: Fell, Bit tongue Pain level max: 0 Pain level now: 0 Recently seen: Not recently seen - Additional information Additional information: BIBA for syncopal episode with seizure-like activity. Patient says he recalls waking up in bed and ambulating to bathroom. He cannot recall if he was walking to or back from the bathroom when he then felt lightheaded and generalized weakness. The next recollection he has is waking up on the floor with EMS present. EMS says patient's witnessed seizure-like activity lasting less than 1 minute, and that he returned to baseline mental status within a few minutes. On my HPI, patient is asymptomatic. He says he has had one seizure in the past due to alcohol withdrawal. He was diagnosed with cirrhosis last year and he denies drinking any alcohol in approximately 9 months. EMS found patient to be AAOx3 but tachycardic to rate of 160s. They attempted vagal maneuvers without effect, but heart rate has improved en route as IV fluids have been infusing. Review of Systems Constitutional: reports: Reviewed and negative Eyes: reports: Reviewed and negative Cardiac: reports: Reviewed and negative Respiratory: reports: Reviewed and negative GI: reports: Reviewed and negative : denies: Incontinent Skin: reports: Reviewed and negative Musculoskeletal: reports: Reviewed and negative Neurologic: reports: Generalized weakness (improving since syncopal event), Seizure (seizure-like activity without description of significant post-ictal phase), LOC. denies: Focal weakness, Numbness, Headache, Head injury PD PAST MEDICAL HISTORY - Past Medical History Past Medical History: Yes GI: Cirrhosis - Past Surgical History Past Surgical History: No - Present Medications Home Medications: Ambulatory Orders Medication Instructions Recorded Confirmed Furosemide [Lasix] 40 mg PO DAILY #20 tablet 10/04/19 06/18/20 DULoxetine [Cymbalta] 60 mg PO DAILY 02/19/20 06/18/20 Gabapentin [Neurontin] 300 mg PO TID 02/19/20 06/18/20 Spironolactone [Aldactone] 100 mg PO DAILY 02/19/20 06/18/20 - Allergies Allergies/Adverse Reactions: Allergies Allergy/AdvReac Type Severity Reaction Status Date / Time No Known Drug Allergies Allergy Verified 06/18/20 04:24 - Living Situation Living Situation: reports: With spouse/s.o. Living Arrangement: reports: At home PD ED PE NORMAL - Vitals Vital signs reviewed: Yes - General General: Alert and oriented X 3, No acute distress, Well developed/nourished - HEENT HEENT: Moist mucous membranes, Other (left-sided tongue echymosis) - Neck Neck: Supple, no meningeal sign - Cardiac Cardiac: No murmur, No gallop, No rub - Respiratory Respiratory: No respiratory distress, Clear bilaterally - Abdomen Abdomen: Soft, Non tender, Non distended - Back Back: No spinal TTP - Derm Derm: Normal color, Warm and dry - Extremities Extremities: No edema - Neuro Neuro: Alert and oriented X 3, men's golf coach 2-12 intact, No motor deficit, No sensory deficit, Normal speech Eye Opening: Spontaneous Motor: Obeys Commands Verbal: Oriented GCS Score: 15 - Psych Psych: Normal mood, Normal affect PD ED PE EXPANDED - Cardiac Cardiac: Tachy, Regular Rhythm Results - Vitals Vitals: Oxygen O2 Source Room air - EKG (time done) No standard instances Rate: Rate (enter#) (123) Rhythm: Sinus tachycardia [place]: Normal Intervals: Normal DC QRS: Normal Ischemia: Normal ST segments - Labs Labs: Laboratory Tests 06/18/20 06/18/20 06/18/20 04:56 04:56 04:56 WBC 8.1 RBC 4.21 L Hgb 13.1 L Hct 38.9 L MCV 92.4 MCH 31.1 H MCHC 33.7 RDW 17.4 H Plt Count 56 L MPV 12.8 H Neut # (Auto) 6.2 Lymph # (Auto) 1.1 L Petroleum # (Auto) 0.7 Eos # (Auto) 0.1 Baso # (Auto) 0.0 Absolute Nucleated RBC 0.00 Nucleated RBC % 0.0 PT 14.4 H INR 1.3 H APTT 26.9 Sodium 132 L Potassium 3.3 L Chloride 96 L Carbon Dioxide 22 Anion Gap 14.0 H BUN 6 Creatinine 1.1 Estimated GFR (MDRD) 72 L Glucose 113 H Calcium 9.3 Total Bilirubin 1.6 H AST 116 H ALT 68 H Alkaline Phosphatase 111 Ammonia Troponin I High Sens Total Protein 8.0 Albumin 4.1 Globulin 3.9 Albumin/Globulin Ratio 1.1 Lipase 32 TSH 06/18/20 06/18/20 06/18/20 04:56 04:56 04:56 WBC RBC Hgb Hct MCV MCH MCHC RDW Plt Count MPV Neut # (Auto) Lymph # (Auto) Petroleum # (Auto) Eos # (Auto) Baso # (Auto) Absolute Nucleated RBC Nucleated RBC % PT INR APTT Sodium Potassium Chloride Carbon Dioxide Anion Gap BUN Creatinine Estimated GFR (MDRD) Glucose Calcium Total Bilirubin AST ALT Alkaline Phosphatase Ammonia 29.8 Troponin I High Sens 6.5 Total Protein Albumin Globulin Albumin/Globulin Ratio Lipase TSH 3.77 - Rads (name of study) chest xray Radiology: Prelim report reviewed, See rad report PD MEDICAL DECISION MAKING - ED course Complexity details: reviewed old records, reviewed results, re-evaluated patient, considered differential, d/w patient ED course: HPI suggestive of syncopal episode after getting out of bed to use the bathroom. He had brief prodrome of lightheadedness and generalized weakness which would suggest orthostatic hypotension. brief seizure activity without post-ictal phase likely due to hypotension with transient low cerebral blood flow, although possibility of the event being due to a seizure as inciting event also possibility. He is asymptomatic on ED presentation and in NAD with normal neurologic exam. He denies headache, weakness (had generalized weakness immediately preceding event), numbness. Tachycardia gradually improved with IV fluids; also given IV ativan, as he says he feels slight anxiety. He strongly denies any alcohol use since last September. blood tests do not show any significan/contributory abnormalities. Results d/w patient and he is comfortable with d/c home; instructed to follow up with his primary care provider. Departure - Departure Disposition: Home, Self Care Clinical Impression: Syncope Qualifiers: Syncope type: unspecified Qualified Code(s): R55 - Syncope and collapse Condition: Good Instructions: ED Fainting Unkn Cause Comments: Your tests tonight do not show any significant abnormalities. It is not clear if you had a seizure. As we discussed, you should follow up with your doctor for reevaluation; you would likely benefit from referral to a neurologist Discharge Date/Time: 06/18/20 06:25
[2020-06-18] MEDS ORDERED: SODIUM CHLORIDE 0.9% 500 ML IV STA (04:52)
[2020-06-18] MEDS ORDERED: SODIUM CHLORIDE 0.9% 1,000 ML IV STA (04:53)
[2020-06-18 05:04] LABS: BASOPHILS % (AUTO) 0.5 %; EOSINOPHILS # (AUTO) 0.1 10^3/uL (0.0-0.7); EOSINOPHILS % (AUTO) 0.7 %; HCT - HEMATOCRIT 38.9 % (42.0-52.0); HGB - HEMOGLOBIN 13.1 g/dL (14.0-18.0); LYMPHOCYTES # (AUTO) 1.1 10^3/uL (1.5-3.5); LYMPHOCYTES % (AUTO) 13.2 %; MEAN CORPUSCULAR HEMOGLOBIN 31.1 pg (27.0-31.0); MEAN CORPUSCULAR HGB CONC 33.7 g/dL (32.0-36.0); MEAN CORPUSCULAR VOLUME 92.4 fL (80.0-94.0); MEAN PLATELET VOLUME 12.8 fL (7.4-11.4); MONOCYTES # (AUTO) 0.7 10^3/uL (0.0-1.0); MONOCYTES % (AUTO) 8.4 %; NEUTROPHILS # (AUTO) 6.2 10^3/uL (1.5-6.6); NEUTROPHILS % (AUTO) 76.8 %; PLT - PLATELET COUNT 56 10^3/uL (130-450); RED BLOOD COUNT 4.21 10^6/uL (4.70-6.10); RED CELL DISTRIBUTION WIDTH 17.4 % (12.0-15.0); WHITE BLOOD COUNT 8.1 x10^3/uL (4.8-10.8)
[2020-06-18 05:07] LABS: INR 1.3 (0.8-1.2); PT - PROTHROMBIN TIME 14.4 secs (9.9-12.6)
[2020-06-18 05:15] LABS: PARTIAL THROMBOPLASTIN TIME 26.9 secs (24.9-33.3)
[2020-06-18 05:17] LABS: ALBUMIN 4.1 g/dL (3.2-5.5); ALBUMIN/GLOBULIN RATIO 1.1 (1.0-2.2); BILIRUBIN,TOTAL 1.6 mg/dL (0.2-1.0); CALCIUM 9.3 mg/dL (8.5-10.3); CREATININE 1.1 mg/dL (0.6-1.2); POTASSIUM 3.3 mmol/L (3.5-5.0)
[2020-06-18] MEDS ORDERED: LORazepam 2 MG/ML VIAL IVP STA (05:57)
[2020-06-18 06:11] VITALS: BP 128/94
--- NOTE | 2020-06-18 08:23 | XRAY Report ---
PROCEDURE: Chest 1 View X-Ray INDICATIONS: syncope TECHNIQUE: One view of the chest was acquired. COMPARISON: Single view chest 09/21/2019 FINDINGS: Surgical changes and devices: None. Lungs and pleura: No pleural effusions or pneumothorax. Lungs are clear. Mediastinum: Mediastinal contours appear normal. Heart size is normal. Bones and chest wall: No suspicious bony lesions. Overlying soft tissues appear unremarkable. IMPRESSION: Normal for age, source of current symptoms is not seen. Reviewed by: Venancio Romeo MD on 06/18/2020 8:22 AM PDT Approved by: eVnancio Romeo MD on 06/18/2020 8:22 AM PDT Station ID: [id number]
== END 2020-06-18 06:25 | disposition home or self-care (01) ==
LOC: EDUNIT# → ED 04:19
DX: R42 Dizziness and giddiness (principal)
CPT/HCPCS: 36415; 71045; 80053; 82140; 83690; 84443; 84484; 85025; 85610; 85730; 93005; 96361; 96374; 99284; J2060

== ENCOUNTER 2020-07-30 11:29 | Emergency (ER) | payer MEDICAID ==
--- NOTE | 2020-07-30 12:00 | ED Physician Documentation ---
PD HPI LOWER EXT INJURY - Stated complaint Stated Complaint: RT FOOT PX - Chief complaint Chief Complaint: Ext Problem - History obtained from History obtained from: Patient - History of Present Illness PD HPI LOW EXT INJURY LOCATION: Right, Foot Type of injury: No: Fall, Twist, Blunt / blow Where injury occurred: Home Timing - onset: Yesterday Timing - details: Gradual onset, Still present (onset without injury and has had progressively worse pain dorsal part of foot, mostly near base of great toe but to top of foot as well.) Worsened by: Moving, Palpating Associated symptoms: Swelling, Discolored (some redness. No skin sores.). No: Weakness, Numbness Similar symptoms before: Has not had sx before Review of Systems Constitutional: denies: Fever, Chills Nose: denies: Rhinorrhea / runny nose, Congestion Throat: denies: Sore throat Respiratory: denies: Cough Neurologic: denies: Focal weakness, Numbness PD PAST MEDICAL HISTORY - Past Medical History Cardiovascular: None Respiratory: None Neuro: Peripheral neuropathy Endocrine/Autoimmune: None GI: Cirrhosis : None HEENT: Chronic vision loss Psych: None Musculoskeletal: None, Other (no history of gout in the past.) Derm: None - Past Surgical History Past Surgical History: No General: Other HEENT: Other Derm: Skin grafts - Present Medications Home Medications: Ambulatory Orders Medication Instructions Recorded Confirmed Furosemide [Lasix] 40 mg PO DAILY #20 tablet 10/04/19 06/18/20 DULoxetine [Cymbalta] 60 mg PO DAILY 02/19/20 06/18/20 Gabapentin [Neurontin] 300 mg PO TID 02/19/20 06/18/20 Spironolactone [Aldactone] 100 mg PO DAILY 02/19/20 06/18/20 Meloxicam [Mobic] 7.5 mg PO BID PRN #10 tablet 07/30/20 dexAMETHasone [Decadron] 4 mg PO DAILY #5 tablet 07/30/20 oxyCODONE [Roxicodone] 5 mg PO Q4-6H PRN #12 tablet 07/30/20 - Allergies Allergies/Adverse Reactions: Allergies Allergy/AdvReac Type Severity Reaction Status Date / Time No Known Drug Allergies Allergy Verified 07/30/20 11:40 - Social History Does the pt smoke?: Yes Smoking Status: Current every day smoker Does the pt drink ETOH?: No Does the pt have substance abuse?: No - Immunizations Immunizations are current?: Yes PD ED PE NORMAL - Vitals Vital signs reviewed: Yes - General General: Alert and oriented X 3, Well developed/nourished, Other (appears in considerable pain from the foot. ) - Cardiac Cardiac: RRR, No murmur - Respiratory Respiratory: Clear bilaterally - Abdomen Abdomen: Soft, Non tender - Derm Derm: Normal color, Warm and dry - Extremities Extremities: No edema, No calf tenderness / cord, Other (right foot dorsal aspect with some redness, no skin lesions. fungal infection changes great to nail but no redness at nailbed. Significant tender dorsal great toe MTP and dorsal foot just proximal to that. ) - Neuro Neuro: Alert and oriented X 3, No motor deficit, No sensory deficit Results - Vitals Vitals: Oxygen O2 Source Room air - Rads (name of study) foot xray Radiology: Prelim report reviewed, See rad report (no fracture nor bony changes. ) PD MEDICAL DECISION MAKING - ED course Complexity details: re-evaluated patient (Significant pain, seems likely gout. I feel short term narcotic pain meds are appropriate. ), considered differential (no skin sores and not appearing as red as cellulitis/infection. Location of pain and red most c/w gout. No history of that. ), d/w patient Departure - Departure Disposition: 01 Home, Self Care Clinical Impression: Foot pain Qualifiers: Laterality: right Qualified Code(s): M79.671 - Pain in right foot Condition: Stable Record reviewed to determine appropriate education?: Yes Instructions: ED Arthritis Gout Follow-Up: Ochoa Eaton MD [Primary Care Provider] - Prescriptions: dexAMETHasone [Decadron] 4 mg PO DAILY #5 tablet Meloxicam [Mobic] 7.5 mg PO BID PRN #10 tablet PRN Reason: Pain oxyCODONE [Roxicodone] 5 mg PO Q4-6H PRN #12 tablet PRN Reason: Pain Comments: Your x-ray appears normal without any signs of fracture or acute bony problem. The area and character of the pain and tenderness are suggestive of an inflammatory condition called gout. Otherwise this may be some inflammation of the tendons and joint instead (tendinitis/arthritis). These conditions would all be treated similarly with anti-inflammatories and pain medication. We can do dexamethasone steroid anti-inflammatory daily for 5 more days. This would not affect your liver function. We could do short-term NSAIDs as well we want to limit the amount of stomach irritation so be sure to take it with food and only for short-term. And oxycodone pain medicine every 4-6 hours if needed. I prescribed a limited amount as I would anticipate improvement in this over the next couple of days and resolution by 2 or 3 days. I am prescribing a short course of narcotic pain medication for you. These are potentially dangerous and addictive medications that should be used carefully. These medications may constipate you. Take an [id number] stool softener such as docusate twice daily with plenty of water while taking these medications. If you go 24 hours without a bowel movement, take [id number] MiraLAX, per package instructions. Do not drink or drive while taking these medications. If you received narcotic or sedating medications while in the emergency department do not drive for 24 hours. Store this medication in a safe, secure place and out of reach of children. It is a violation of federal law to give or sell this medication to another person or to use in a manner other than prescribed. The ED will not refill narcotic prescriptions, including prescriptions lost or stolen. You can dispose of unwanted medications at the [facility]'s office or at several pharmacies such as [facility]. Discharge Date/Time: 07/30/20 13:51
[2020-07-30 12:13] VITALS: BP 116/79
[2020-07-30] MEDS ORDERED: DEXAMETHASONE 10 MG/ML VIAL PO STA (12:40)
[2020-07-30] MEDS ORDERED: CHERRY SYRUP 10 ML UDC PO ONE (12:40)
[2020-07-30] MEDS ORDERED: KETOROLAC 15 MG/ML VIAL IM STA (12:40)
[2020-07-30] MEDS ORDERED: oxyCODONE 5 MG TABLET PO STA (12:40)
--- NOTE | 2020-07-30 13:02 | XRAY Report ---
PROCEDURE: Foot 3 View RT INDICATIONS: great toe/foot pain 2 days. no noted trauma. TECHNIQUE: 3 views of the foot were acquired. COMPARISON: None FINDINGS: Bones: No fractures or dislocations. No suspicious bony lesions. Soft tissues: No tibiotalar joint effusion. Achilles tendon appears normal. IMPRESSION: No visualized acute fracture or dislocation. However, occult injury cannot be excluded. Recommend urban rt interval imaging follow-up in 7-10 days as clinically indicated for additional evaluation. Reviewed by: Rosalva Montgomery MD on 07/30/2020 1:00 PM PDT Approved by: Rosalva Montgomery MD on 07/30/2020 1:00 PM PDT Station ID: [id number]
== END 2020-07-30 13:51 | disposition home or self-care (01) ==
LOC: ED 11:29
DX: M79.671 Pain in right foot (principal); G62.9 Polyneuropathy, unspecified; F17.200 Nicotine dependence, unspecified, uncomplicated
CPT/HCPCS: 73630; 96372; 99283; 99284; A9270

== ENCOUNTER 2020-08-07 10:24 | Outpatient (CLI) | payer MEDICAID | END 2020-08-07 23:59 | disposition home or self-care (01) | LOC: LAB.N 10:24 | PROVIDERS: ATTEND Physician Assistant Medical | DX: M10.9 Gout, unspecified (principal) | CPT/HCPCS: 36415; 84550 ==

== ENCOUNTER 2020-12-19 08:00 | Outpatient (CLI) | payer MEDICAID ==
[2020-12-19 12:29] LABS: BASOPHILS # (AUTO) 0.1 10^3/uL (0.0-0.1); BASOPHILS % (AUTO) 1.2 %; EOSINOPHILS # (AUTO) 0.5 10^3/uL (0.0-0.7); EOSINOPHILS % (AUTO) 6.5 %; HCT - HEMATOCRIT 49.7 % (42.0-52.0); HGB - HEMOGLOBIN 16.2 g/dL (14.0-18.0); LYMPHOCYTES # (AUTO) 3.6 10^3/uL (1.5-3.5); LYMPHOCYTES % (AUTO) 51.2 %; MEAN CORPUSCULAR HEMOGLOBIN 31.4 pg (27.0-31.0); MEAN CORPUSCULAR HGB CONC 32.6 g/dL (32.0-36.0); MEAN CORPUSCULAR VOLUME 96.3 fL (80.0-94.0); MEAN PLATELET VOLUME 12.6 fL (7.4-11.4); MONOCYTES # (AUTO) 0.8 10^3/uL (0.0-1.0); MONOCYTES % (AUTO) 11.1 %; NEUTROPHILS # (AUTO) 2.1 10^3/uL (1.5-6.6); NEUTROPHILS % (AUTO) 29.7 %; PLT - PLATELET COUNT 132 10^3/uL (130-450); RED BLOOD COUNT 5.16 10^6/uL (4.70-6.10); RED CELL DISTRIBUTION WIDTH 13.7 % (12.0-15.0)
[2020-12-19 12:31] LABS: % IRON SATURATION 20 % (20-50); ALBUMIN 4.2 g/dL (3.2-5.5); ALBUMIN/GLOBULIN RATIO 1.2 (1.0-2.2); ALKALINE PHOSPHATASE 134 IU/L (42-121); ALT ALANINE AMINOTRANSFERASE 31 IU/L (10-60); AST ASPARTATE AMINOTRANSFERASE 34 IU/L (10-42); BILIRUBIN,TOTAL 0.8 mg/dL (0.2-1.0); BUN - BLOOD UREA NITROGEN 26 mg/dL (6-20); CARBON DIOXIDE - CO2 29 mmol/L (21-32); CHLORIDE 102 mmol/L (101-111); CHOL/HDL RATIO 5.7 (<5.0); CHOLESTEROL 189 mg/dL; CREATININE 1.1 mg/dL (0.6-1.2); GFR - MDRD 72 (>89); GLUCOSE 97 mg/dL (70-100); HDL CHOLESTEROL 33 mg/dL; IRON 95 ug/dL (45-182); LDL CHOLESTEROL,CALCULATED 136 mg/dL; LDL/HDL RATIO 4.1 (<3.6); POTASSIUM 4.6 mmol/L (3.5-5.0); SODIUM 140 mmol/L (135-145); TOTAL IRON BINDING CAPACITY 475 ug/dL (250-450); TOTAL PROTEIN 7.7 g/dL (6.7-8.2); TRANSFERRIN 339 mg/dL (180-329); TRIGLYCERIDES 102 mg/dL; URIC ACID 8.9 mg/dL (2.6-7.2); VLDL CHOLESTEROL 20 mg/dL
[2020-12-19 12:52] LABS: INR 1.1 (0.8-1.2)
[2020-12-20 13:21] LABS: HEPATITIS A AB TOTAL(IMMUNITY) NON-REACTIVE (NON-REACTIVE); HEPATITIS B CORE AB TOTAL NON-REACTIVE (NON-REACTIVE)
[2020-12-20 13:22] LABS: HEPATITIS B SURFACE ANTIGEN NON-REACTIVE (NON-REACTIVE)
== END 2020-12-19 08:01 | disposition home or self-care (01) ==
LOC: LAB.WCP 08:00
PROVIDERS: ATTEND Internal Medicine
DX: R94.5 Abnormal results of liver function studies (principal); Z13.220 Encounter for screening for lipoid disorders; M10.9 Gout, unspecified
CPT/HCPCS: 36415; 80053; 80061; 81599; 82105; 82728; 83540; 83721; 84466; 84550; 85025; 85610; 86317; 86704; 86708; 87340

== ENCOUNTER 2021-01-04 11:01 | Outpatient (CLI) | payer MEDICAID ==
--- NOTE | 2021-01-04 12:58 | Ultrasound Report ---
PROCEDURE: Abdomen Complete INDICATIONS: ALCOHOLIC CIRRHOSIS OF LIVER TECHNIQUE: Real-time scanning was performed of the abdominal and retroperitoneal organs, with image documentatio n. COMPARISON: None. FINDINGS: Liver: Enlarged, echogenic liver is seen, with a lobulated contour. The increased echogenicity limits evaluation for liver masses. However, none can be seen. Gallbladder: Mobile stones can be seen within the gallbladder, which measure up to 2.4 cm. The gallbl adder wall does not appear thickened. There is no specific pericholecystic fluid. The sonographic Mur phy's sign is negative. Biliary ducts: Intrahepatic bile ducts are non-dilated. Extrahepatic bile duct caliber measures 5 m m. Normal is 6-7 mm or less in diameter, or 10 mm or less post-cholecystectomy. Pancreas: Visualized portions of the pancreas are sonographically normal. Spleen: The spleen is enlarged, measuring 14.8 x 4.8 x 14.3 cm, with a calculated volume of 533 cc. Kidneys: Right kidney measures 10.7 cm long; left kidney measures 9 cm long. No hydronephrosis or n ephrolithiasis. No solid masses. Aorta: Visualized aorta is normal in caliber at less than 3 cm. Iliacs: Proximal common iliac arteries are normal in caliber at less than 2.5 cm. IVC: Intrahepatic inferior vena cava is patent. Miscellaneous: No free abdominal fluid. IMPRESSION: Enlarged, echogenic liver with a lobular contour, which is consistent with cirrhosis. Underlying fatt y infiltration is also likely. There is associated splenomegaly present. Gallstones are seen, without additional sonographic signs of cholecystitis. No biliary dilatation is seen. Small left kidney size noted. Reviewed by: Juan Manuel Read MD on 01/04/2021 11:56 AM [facility] Approved by: Juan Manuel Read MD on 01/04/2021 11:56 AM [facility] Station ID: [id number]
== END 2021-01-04 11:02 | disposition home or self-care (01) ==
LOC: DI 11:01
PROVIDERS: ATTEND Internal Medicine
DX: K70.30 Alcoholic cirrhosis of liver without ascites (principal); R16.1 Splenomegaly, not elsewhere classified; K80.20 Calculus of gallbladder without cholecystitis without obstruction

== ENCOUNTER 2021-02-12 15:02 | Emergency (ER) | payer MEDICAID ==
[2021-02-12] MEDS ORDERED: SODIUM CHLORIDE 0.9% 1,000 ML IV STA (15:28)
--- NOTE | 2021-02-12 15:42 | ED Physician Documentation ---
History of Present Illness - Stated complaint Stated Complaint: ABD PX - Chief complaint Chief Complaint: Abd Pain - Additonal information Additional information: 45-year-old male who has a history of alcoholic cirrhosis presents the emergency department for evaluation of 2 days of right-sided abdominal pain as well as feelings of increased distention. He did have a paracentesis completed once in September 2019. Patient reports that he has not drank now for nearly 18 months. He has not had any fevers or vomiting. He was discussing his abdominal pain and mild distention with his primary care provider who advised him to come to the ER for further evaluation. Review of Systems Constitutional: denies: Fever, Chills Eyes: reports: Reviewed and negative Throat: reports: Reviewed and negative Cardiac: reports: Reviewed and negative Respiratory: reports: Reviewed and negative GI: reports: Abdominal Pain. denies: Nausea, Vomiting, Constipation, Diarrhea : denies: Dysuria, Frequency, Hesitancy Skin: denies: Rash, Lesions Musculoskeletal: reports: Reviewed and negative Neurologic: reports: Reviewed and negative PD PAST MEDICAL HISTORY - Past Medical History Cardiovascular: None Respiratory: None Neuro: Peripheral neuropathy Endocrine/Autoimmune: None GI: Cirrhosis : None HEENT: Chronic vision loss Psych: None Musculoskeletal: None, Other (no history of gout in the past.) Derm: None - Past Surgical History Past Surgical History: No General: Other HEENT: Other Derm: Skin grafts - Present Medications Home Medications: Ambulatory Orders Medication Instructions Recorded Confirmed Furosemide [Lasix] 40 mg PO DAILY #20 tablet 10/04/19 06/18/20 DULoxetine [Cymbalta] 60 mg PO DAILY 02/19/20 06/18/20 Gabapentin [Neurontin] 300 mg PO TID 02/19/20 06/18/20 Spironolactone [Aldactone] 100 mg PO DAILY 02/19/20 06/18/20 Meloxicam [Mobic] 7.5 mg PO BID PRN #10 tablet 07/30/20 dexAMETHasone [Decadron] 4 mg PO DAILY #5 tablet 07/30/20 oxyCODONE [Roxicodone] 5 mg PO Q4-6H PRN #12 tablet 07/30/20 - Allergies Allergies/Adverse Reactions: Allergies Allergy/AdvReac Type Severity Reaction Status Date / Time No Known Drug Allergies Allergy Verified 02/12/21 15:10 - Social History Does the pt smoke?: Yes Smoking Status: Current every day smoker Does the pt drink ETOH?: No Does the pt have substance abuse?: No - Immunizations Immunizations are current?: Yes PD ED PE EXPANDED - General General: Alert, No acute distress, Well developed/nourished - Cardiac Cardiac: Tachy, Radial strong equal, Pedal strong equal, Cap refill < 2 sec - Respiratory Respiratory: Clear to ausultation bianka. No: Distress, Labored - Abdomen Abdomen: Normal Bowel sounds, Tender to palpation (Mild tenderness to palpation on the right lower abdomen without guarding or rebound.), Other (No palpable ascites.) - Derm Derm: Normal color, Warm and dry. No: Rash - Extremities Extremities: Normal. No: Deformity, Tenderness - Neuro Neuro: Alert and Oriented X 3, CNII-XII intact - GCS Eye Opening: Spontaneous Motor: Obeys Commands Verbal: Oriented Total: 15 Results - Vitals Vitals: Vital Signs - 24 hr 02/12/21 15:06 Temperature 35.8 C L Heart Rate 123 H Respiratory 18 Rate Blood Pressure 175/104 H O2 Saturation 100 Oxygen O2 Source Room air - Labs Labs: Laboratory Tests 02/12/21 02/12/21 02/12/21 15:49 15:49 15:49 WBC 7.5 RBC 5.38 Hgb 16.7 Hct 50.8 MCV 94.4 H MCH 31.0 MCHC 32.9 RDW 13.7 Plt Count 152 MPV 11.6 H Neut # (Auto) 3.0 Lymph # (Auto) 3.6 H [place] # (Auto) 0.5 Eos # (Auto) 0.3 Baso # (Auto) 0.1 Absolute Nucleated RBC 0.00 Nucleated RBC % 0.0 PT INR Sodium 137 Potassium 3.8 Chloride 98 L Carbon Dioxide 28 Anion Gap 11.0 BUN 15 Creatinine 1.1 Estimated GFR (MDRD) 72 L Glucose 157 H Lactic Acid Calcium 10.3 Total Bilirubin 0.4 AST 34 ALT 39 Alkaline Phosphatase 170 H Ammonia 16.1 Total Protein 8.9 H Albumin 4.7 Globulin 4.3 H Albumin/Globulin Ratio 1.1 Lipase 91 H Urine Color Urine Clarity Urine pH Ur Specific [place] Urine Protein Urine Glucose (UA) Urine Ketones Urine Occult Blood Urine Nitrite Urine Bilirubin Urine Urobilinogen Ur Leukocyte Esterase Ur Microscopic Review Urine Culture Comments 0102/12/21 02/12/21 15:49 15:49 15:49 WBC RBC Hgb Hct MCV MCH MCHC RDW Plt Count MPV Neut # (Auto) Lymph # (Auto) [place] # (Auto) Eos # (Auto) Baso # (Auto) Absolute Nucleated RBC Nucleated RBC % PT 11.9 INR 1.1 Sodium Potassium Chloride Carbon Dioxide Anion Gap BUN Creatinine Estimated GFR (MDRD) Glucose Lactic Acid 1.6 Calcium Total Bilirubin AST ALT Alkaline Phosphatase Ammonia Total Protein Albumin Globulin Albumin/Globulin Ratio Lipase Urine Color YELLOW Urine Clarity CLEAR Urine pH 6.0 Ur Specific [place] <=1.005 Urine Protein NEGATIVE Urine Glucose (UA) NEGATIVE Urine Ketones NEGATIVE Urine Occult Blood NEGATIVE Urine Nitrite NEGATIVE Urine Bilirubin NEGATIVE Urine Urobilinogen 0.2 (NORMAL) Ur Leukocyte Esterase NEGATIVE Ur Microscopic Review NOT INDICATED Urine Culture Comments NOT INDICATED - Rads (name of study) CT abd Radiology: Final report received (Normal appendix without CT evidence of appendicitis. Moderate fecal debris present in the colon. Cholelithiasis without cholecystitis. Hepatic cirrhosis with portal vein distention suggestive of portal hypertension.) PD MEDICAL DECISION MAKING - ED course Complexity details: reviewed results, re-evaluated patient, considered differential, d/w patient ED course: 45-year-old male who has a history of alcoholic cirrhosis presents the emergency department for evaluation of few days right lower quadrant abdominal tenderness as well is concerned that he is developing abdominal distention. He has had no fevers vomiting. No dysuria urgency or frequency. He did have a diagnostic paracentesis in September 2019 that did not show any findings of peritonitis. He currently takes spironolactone, naltrexone and gabapentin. On presentation he has mild tenderness in the right lower quadrant without guarding or rebound. Abdominal ultrasound does not reveal any ascites that would be amenable to paracentesis at the bedside. Screening labs are without acute focal worrisome abnormalities. A CT scan was completed and No acute worrisome findings were seen. Specifically no appendicitis. There is noted cirrhosis without ascites. He does have portal vein distention and portal hypertension. Given his reassuring labs. Patient is stable for discharge home. He is encouraged close follow-up with his primary care doctor as well as rereferral to GI to discuss the portal hypertension and longer-term management of the cirrhosis. Emergent return precautions discussed. Departure - Departure Disposition: Home, Self Care Clinical Impression: Lower abdominal pain Cirrhosis Qualifiers: Hepatic cirrhosis type: alcoholic cirrhosis Ascites presence: without ascites Qualified Code(s): K70.30 - Alcoholic cirrhosis of liver without ascites Condition: Stable Record reviewed to determine appropriate education?: Yes Instructions: ED Cirrhosis Liver Follow-Up: Ochoa Eaton MD [Primary Care Provider] - Comments: Goyo you are seen in the emergency department for lower abdominal pain. You were concerned that you could have a return of the ascites that would need to be drained. Reassuringly today there is no ascites in your abdomen thus nothing to drain. Your screening labs are all essentially normal without any worrisome findings. A CT of your abdomen does confirm that you do have cirrhosis of the liver. You should be referred back to a manager protein to discuss longer- term management of this. You do have a fair amount of stool within your colon and constipation could be causing some of your symptoms therefore I do recommend that you take MiraLAX every day until you have 2 or 3 watery bowel movements. If any point you have worsening symptoms, black or bloody stools, have fevers or uncontrolled vomiting then please return immediately to the ER for a second look.
[2021-02-12] MEDS ORDERED: HYDROmorphone 1 MG/ML CARPUJECT IVP STA (15:50)
[2021-02-12 15:58] LABS: BASOPHILS # (AUTO) 0.1 10^3/uL (0.0-0.1); BASOPHILS % (AUTO) 1.1 %; EOSINOPHILS # (AUTO) 0.3 10^3/uL (0.0-0.7); EOSINOPHILS % (AUTO) 4.4 %; HCT - HEMATOCRIT 50.8 % (42.0-52.0); HGB - HEMOGLOBIN 16.7 g/dL (14.0-18.0); LYMPHOCYTES # (AUTO) 3.6 10^3/uL (1.5-3.5); LYMPHOCYTES % (AUTO) 47.7 %; MEAN CORPUSCULAR HGB CONC 32.9 g/dL (32.0-36.0); MEAN CORPUSCULAR VOLUME 94.4 fL (80.0-94.0); MEAN PLATELET VOLUME 11.6 fL (7.4-11.4); MONOCYTES # (AUTO) 0.5 10^3/uL (0.0-1.0); MONOCYTES % (AUTO) 7.1 %; NEUTROPHILS % (AUTO) 39.4 %; PLT - PLATELET COUNT 152 10^3/uL (130-450); RED BLOOD COUNT 5.38 10^6/uL (4.70-6.10); RED CELL DISTRIBUTION WIDTH 13.7 % (12.0-15.0); WHITE BLOOD COUNT 7.5 x10^3/uL (4.8-10.8)
[2021-02-12 16:02] LABS: BILIRUBIN,URINE NEGATIVE (NEGATIVE); GLUCOSE, URINE (UA) NEGATIVE (NEGATIVE); KETONES,URINE (UA) NEGATIVE (NEGATIVE); LEUKOCYTE ESTERASE, URINE NEGATIVE (NEGATIVE); NITRITE,URINE NEGATIVE (NEGATIVE); OCCULT BLOOD,URINE NEGATIVE (NEGATIVE); PROTEIN,URINE NEGATIVE (NEGATIVE); UROBILINOGEN,URINE 0.2 (NORMAL) E.U./dL (NORMAL)
[2021-02-12 16:03] LABS: CLARITY,URINE CLEAR (CLEAR)
[2021-02-12 16:07] LABS: INR 1.1 (0.8-1.2); PT - PROTHROMBIN TIME 11.9 secs (9.9-12.6)
[2021-02-12 16:11] LABS: ALBUMIN 4.7 g/dL (3.2-5.5); ALBUMIN/GLOBULIN RATIO 1.1 (1.0-2.2); BILIRUBIN,TOTAL 0.4 mg/dL (0.2-1.0); CALCIUM 10.3 mg/dL (8.5-10.3); CREATININE 1.1 mg/dL (0.6-1.2); POTASSIUM 3.8 mmol/L (3.5-5.0); TOTAL PROTEIN 8.9 g/dL (6.7-8.2)
[2021-02-12] MEDS ORDERED: iohexoL-300 100 ML VIAL ONE (16:49)
--- NOTE | 2021-02-12 17:44 | CT Report ---
PROCEDURE: CT abdomen and pelvis with contrast INDICATIONS: RLQ abd pain; hx of cirrohsis CONTRAST: IV CONTRAST: Optiray 320 ml: 100 PO CONTRAST: *NO PO CONTRAST TECHNIQUE: After the administration of contrast, 5 mm thick sections acquired from the diaphragms to the sym physis. 5 mm thick coronal and sagittal reformats were acquired. For radiation dose reduction, the following was used: automated exposure control, adjustment of mA and/or kV according to patient size . COMPARISON: None. FINDINGS: Image quality: Excellent. ABDOMEN: Lung bases: Lung bases are clear. Heart size is normal. Solid organs: Liver is heterogenous with scalloped capsule consistent with hepatic cirrhosis. Portal vein is distended at 18 mm in diameter. No splenomegaly.. Gallbladder shows cholelithiasis noted wit hout acute cholecystitis Biliary system is non dilated. Pancreas enhances normally. No adrenal nod ules. Kidneys demonstrate normal size and enhancement, without hydronephrosis. Peritoneum and bowel: Bowel loops demonstrate normal wall thickness and caliber. No free fluid or a ir. Moderate to fecal debris throughout the colon. Normal appendix identified. Nodes and vessels: No retroperitoneal or mesenteric adenopathy by size criteria. Aorta and inferior vena cava are normal in size. Miscellaneous: No ventral hernias. PELVIS: Genitourinary: Bladder wall thickness is normal. Miscellaneous: Left inguinal hernia contains fat without bowel involvement. Bones: No suspicious bony lesions. No vertebral body compression fractures. Multilevel degenerativ e disc disease and arthropathy in the cervical spine with moderate central stenosis at L3-4 IMPRESSION: 1. Normal appendix without CT evidence of appendicitis. Moderate to fecal debris present in the colon . 2. Cholelithiasis without CT evidence of acute cholecystitis. 3. Hepatic cirrhosis with portal vein distention suggesting portal hypertension Reviewed by: Sree Charles MD on 02/12/2021 4:42 PM [facility] Approved by: Sree Charles MD on 02/12/2021 4:42 PM [facility] Station ID: [id number]
[2021-02-12 18:08] VITALS: BP 170/99
[2021-02-12] MEDS ORDERED: iohexoL-300 100 ML VIAL IVP ONE (18:46)
== END 2021-02-12 18:08 | disposition home or self-care (01) ==
LOC: ED 15:02
DX: R10.30 Lower abdominal pain, unspecified (principal); K70.30 Alcoholic cirrhosis of liver without ascites; F17.200 Nicotine dependence, unspecified, uncomplicated
CPT/HCPCS: 36415; 74177; 80053; 81003; 82140; 83605; 83690; 85025; 85610; 96374; 99282; 99284; J1170; Q9967; 81001; 87086

== ENCOUNTER 2021-07-04 09:55 | Outpatient (CLI) | payer MEDICAID ==
[2021-07-04 12:09] LABS: BASOPHILS # (AUTO) 0.1 10^3/uL (0.0-0.1); BASOPHILS % (AUTO) 1.2 %; EOSINOPHILS # (AUTO) 0.2 10^3/uL (0.0-0.7); EOSINOPHILS % (AUTO) 2.5 %; HCT - HEMATOCRIT 51.2 % (42.0-52.0); HGB - HEMOGLOBIN 17.2 g/dL (14.0-18.0); LYMPHOCYTES # (AUTO) 3.2 10^3/uL (1.5-3.5); LYMPHOCYTES % (AUTO) 37.7 %; MEAN CORPUSCULAR HGB CONC 33.6 g/dL (32.0-36.0); MEAN CORPUSCULAR VOLUME 98.3 fL (80.0-94.0); MEAN PLATELET VOLUME 12.6 fL (7.4-11.4); MONOCYTES # (AUTO) 0.5 10^3/uL (0.0-1.0); NEUTROPHILS # (AUTO) 4.5 10^3/uL (1.5-6.6); NEUTROPHILS % (AUTO) 52.4 %; PLT - PLATELET COUNT 181 10^3/uL (130-450); RED BLOOD COUNT 5.21 10^6/uL (4.70-6.10); RED CELL DISTRIBUTION WIDTH 14.3 % (12.0-15.0); WHITE BLOOD COUNT 8.5 x10^3/uL (4.8-10.8)
[2021-07-04 12:28] LABS: ALBUMIN 4.7 g/dL (3.2-5.5); ALBUMIN/GLOBULIN RATIO 1.2 (1.0-2.2); CALCIUM 9.8 mg/dL (8.5-10.3); CREATININE 1.1 mg/dL (0.6-1.2); POTASSIUM 4.5 mmol/L (3.5-5.0); TOTAL PROTEIN 8.6 g/dL (6.7-8.2); URIC ACID 9.3 mg/dL (2.6-7.2)
== END 2021-07-04 09:56 | disposition home or self-care (01) ==
LOC: LAB.N 09:55
PROVIDERS: ATTEND Internal Medicine
DX: M10.9 Gout, unspecified (principal); K70.30 Alcoholic cirrhosis of liver without ascites
CPT/HCPCS: 36415; 80053; 82105; 84550; 85025

== ENCOUNTER 2021-08-01 18:25 | Outpatient (CLI) | payer MEDICAID ==
--- NOTE | 2021-08-01 23:31 | Ultrasound Report ---
PROCEDURE: Abdomen Complete INDICATIONS: ALCOHOLIC CIRRHOSIS TECHNIQUE: Real-time scanning was performed of the abdominal and retroperitoneal organs, with image documentatio n. COMPARISON: 01/04/2021. Correlation is also made with abdomen pelvis CT, 02/12/2021 FINDINGS: Liver: The liver demonstrates normal size. The liver demonstrates moderately increased echogenicit y, which limits ultrasound sensitivity for detection of masses. The central canal is widely patent. A plantar calcaneal spur is incidentally noted. Gallbladder: Known gallstones are seen. The gallbladder wall does not appear thickened. There is no s pecific pericholecystic fluid. The sonographic Camilo's sign is negative. Biliary ducts: Intrahepatic bile ducts are non-dilated. Extrahepatic bile duct caliber measures 5 m m. Normal is 6-7 mm or less in diameter, or 10 mm or less post-cholecystectomy. Pancreas: Visualized portions of the pancreas are sonographically normal. Spleen: Spleen is normal in size and homogeneous in echotexture, measuring up to 11.8 cm. Kidneys: Kidneys are normal in size and echotexture. Right kidney measures 10.4 cm long; left kidne y measures 9.6 cm long. No hydronephrosis or nephrolithiasis. No solid masses. Aorta: Visualized aorta is normal in caliber at less than 3 cm. Iliacs: Proximal common iliac arteries are normal in caliber at less than 2.5 cm. IVC: Intrahepatic inferior vena cava is patent. Miscellaneous: No free abdominal fluid. IMPRESSION: Enlarged, cirrhotic liver. Gallstones can be seen within the gallbladder, without additional sonographic signs of cholecystitis. No biliary dilatation is seen. Reviewed by: Juan Manuel Read MD on 08/01/2021 10:35 PM [facility] Approved by: Juan Manuel Read MD on 08/01/2021 10:35 PM [facility] Station ID: [id number]
== END 2021-08-01 18:26 | disposition home or self-care (01) ==
LOC: DI 18:25
PROVIDERS: ATTEND Internal Medicine
DX: K70.30 Alcoholic cirrhosis of liver without ascites (principal); K80.20 Calculus of gallbladder without cholecystitis without obstruction

== ENCOUNTER 2021-10-09 10:57 | Outpatient (CLI) | payer MEDICAID ==
[2021-10-09 18:02] LABS: ALBUMIN 4.6 g/dL (3.2-5.5); ALBUMIN/GLOBULIN RATIO 1.3 (1.0-2.2); BILIRUBIN,TOTAL 1.1 mg/dL (0.2-1.0); CALCIUM 10.2 mg/dL (8.5-10.3); CREATININE 0.9 mg/dL (0.6-1.2); POTASSIUM 4.9 mmol/L (3.5-5.0); TOTAL PROTEIN 8.1 g/dL (6.7-8.2); URIC ACID 8.3 mg/dL (2.6-7.2)
== END 2021-10-09 10:58 | disposition home or self-care (01) ==
LOC: LAB.N 10:57
PROVIDERS: ATTEND Internal Medicine
DX: I10 Essential (primary) hypertension (principal); M10.9 Gout, unspecified
CPT/HCPCS: 36415; 80053; 84550

== ENCOUNTER 2022-02-03 15:10 | Emergency (ER) | payer MEDICAID ==
[2022-02-03 15:45] LABS: BASOPHILS # (AUTO) 0.1 10^3/uL (0.0-0.1); BASOPHILS % (AUTO) 0.6 %; EOSINOPHILS # (AUTO) 0.4 10^3/uL (0.0-0.7); EOSINOPHILS % (AUTO) 3.2 %; HCT - HEMATOCRIT 52.7 % (42.0-52.0); HGB - HEMOGLOBIN 17.6 g/dL (14.0-18.0); LYMPHOCYTES # (AUTO) 3.7 10^3/uL (1.5-3.5); LYMPHOCYTES % (AUTO) 32.1 %; MEAN CORPUSCULAR HEMOGLOBIN 32.7 pg (27.0-31.0); MEAN CORPUSCULAR HGB CONC 33.4 g/dL (32.0-36.0); MEAN PLATELET VOLUME 11.2 fL (7.4-11.4); MONOCYTES # (AUTO) 0.6 10^3/uL (0.0-1.0); NEUTROPHILS # (AUTO) 6.8 10^3/uL (1.5-6.6); NEUTROPHILS % (AUTO) 58.8 %; PLT - PLATELET COUNT 163 10^3/uL (130-450); RED BLOOD COUNT 5.38 10^6/uL (4.70-6.10); RED CELL DISTRIBUTION WIDTH 13.2 % (12.0-15.0); WHITE BLOOD COUNT 11.6 x10^3/uL (4.8-10.8)
[2022-02-03 15:59] LABS: BILIRUBIN,URINE NEGATIVE (NEGATIVE); GLUCOSE, URINE (UA) NEGATIVE (NEGATIVE); KETONES,URINE (UA) NEGATIVE (NEGATIVE); LEUKOCYTE ESTERASE, URINE NEGATIVE (NEGATIVE); NITRITE,URINE NEGATIVE (NEGATIVE); OCCULT BLOOD,URINE NEGATIVE (NEGATIVE); PROTEIN,URINE NEGATIVE (NEGATIVE); UROBILINOGEN,URINE 0.2 (NORMAL) E.U./dL (NORMAL)
[2022-02-03 16:00] LABS: ALBUMIN 4.5 g/dL (3.2-5.5); ALBUMIN/GLOBULIN RATIO 1.2 (1.0-2.2); BILIRUBIN,TOTAL 0.9 mg/dL (0.2-1.0); CALCIUM 9.8 mg/dL (8.5-10.3); POTASSIUM 4.4 mmol/L (3.5-5.0); TOTAL PROTEIN 8.2 g/dL (6.7-8.2)
[2022-02-03 16:04] LABS: CLARITY,URINE CLEAR (CLEAR)
[2022-02-03] MEDS ORDERED: HYDROmorphone 1 MG/ML CARPUJECT IVP STA (16:45)
--- NOTE | 2022-02-03 16:51 | ED Physician Documentation ---
PD HPI ABD PAIN - Stated complaint Stated Complaint: LT FLANK PX/BACK PX - Chief complaint Chief Complaint: Abd Pain - History obtained from History obtained from: Patient - History of Present Illness Timing - details: Gradual onset Pain level max: 8 Pain level now: 8 Quality: Aching, Pain Location: LLQ Associated symptoms: No: Fever, Nausea, Vomiting, Hematemesis, Melena, Dysuria, Testicular pain - Additional information Additional information: Patient is a 46-year-old male who presents to the emergency department with left lower quadrant abdominal pain for the past 3 to 4 days. Gradually worsening during that time. Worse with movement, nothing makes it better. No diarrhea, has had some constipation. He states he had a reportedly normal colonoscopy several years ago. He states that he has had a hernia repair on the right side. He has not noticed any bulging or bruising. No vomiting. No fevers. No testicular pain. No history of kidney stones. He does have a history of alcoholic cirrhosis. He states that he has been sober from alcohol. Has had ascites in the past. Review of Systems Constitutional: denies: Fever, Chills Ears: denies: Ear pain Nose: denies: Rhinorrhea / runny nose, Congestion Respiratory: denies: Cough GI: denies: Nausea, Vomiting, Diarrhea Skin: denies: Rash Musculoskeletal: denies: Neck pain, Back pain Neurologic: denies: Headache PD PAST MEDICAL HISTORY - Past Medical History Past Medical History: Yes Cardiovascular: None Respiratory: None Neuro: Peripheral neuropathy Endocrine/Autoimmune: None GI: Cirrhosis : None HEENT: Chronic vision loss Psych: None Musculoskeletal: None, Other (no history of gout in the past.) Derm: None - Past Surgical History Past Surgical History: No General: Other HEENT: Other Derm: Skin grafts - Present Medications Home Medications: Ambulatory Orders Medication Instructions Recorded Confirmed Gabapentin [Neurontin] 300 mg PO TID 02/19/20 02/03/22 Spironolactone [Aldactone] 100 mg PO DAILY 02/19/20 02/03/22 Duloxetine HCl [Cymbalta] 60 mg PO DAILY 02/03/22 02/03/22 Losartan Potassium [Cozaar] 100 mg PO DAILY 02/03/22 02/03/22 Meloxicam [Mobic] 7.5 mg PO BID PRN #20 tablet 02/03/22 Naltrexone HCl 100 mg PO DAILY 02/03/22 02/03/22 allopurinoL [Allopurinol] 300 mg PO DAILY 02/03/22 02/03/22 - Allergies Allergies/Adverse Reactions: Allergies Allergy/AdvReac Type Severity Reaction Status Date / Time No Known Drug Allergies Allergy Verified 02/03/22 15:19 - Social History Does the pt smoke?: Yes Smoking Status: Current every day smoker Does the pt drink ETOH?: No Does the pt have substance abuse?: No - Immunizations Immunizations are current?: Yes - POLST Patient has POLST: No PD ED PE NORMAL - Vitals Vital signs reviewed: Yes - General General: Alert and oriented X 3, No acute distress - HEENT HEENT: Moist mucous membranes - Neck Neck: Supple, no meningeal sign - Cardiac Cardiac: RRR - Respiratory Respiratory: No respiratory distress, Clear bilaterally - Abdomen Abdomen: Soft, Non tender, Other (Tender palpation left lower quadrant. No peritoneal signs. L inguinal hernia, reducible, but tender) - Back Back: No spinal TTP - Derm Derm: Warm and dry - Neuro Neuro: Alert and oriented X 3 - Psych Psych: Normal mood, Normal affect Results - Vitals Vitals: Vital Signs - 24 hr 02/03/22 02/03/22 02/03/22 15:19 17:10 18:54 Temperature 37.2 C 36.8 C 36.2 C L Heart Rate 117 H 99 75 Respiratory 20 16 16 Rate Blood Pressure 184/124 H 161/116 H 149/103 H O2 Saturation 98 95 100 Oxygen O2 Source Room air - Labs Labs: Laboratory Tests 02/03/22 02/03/22 02/03/22 15:30 15:40 15:40 WBC 11.6 H RBC 5.38 Hgb 17.6 Hct 52.7 H MCV 98.0 H MCH 32.7 H MCHC 33.4 RDW 13.2 Plt Count 163 MPV 11.2 Neut # (Auto) 6.8 H Lymph # (Auto) 3.7 H [place] # (Auto) 0.6 Eos # (Auto) 0.4 Baso # (Auto) 0.1 Absolute Nucleated RBC 0.00 Nucleated RBC % 0.0 Sodium 137 Potassium 4.4 Chloride 99 L Carbon Dioxide 29 Anion Gap 9.0 BUN 14 Creatinine 1.0 Estimated GFR (MDRD) 80 L Glucose 108 H Calcium 9.8 Total Bilirubin 0.9 AST 28 ALT 36 Alkaline Phosphatase 60 Total Protein 8.2 Albumin 4.5 Globulin 3.7 Albumin/Globulin Ratio 1.2 Lipase 29 Urine Color YELLOW Urine Clarity CLEAR Urine pH 6.0 Ur Specific [place] <=1.005 Urine Protein NEGATIVE Urine Glucose (UA) NEGATIVE Urine Ketones NEGATIVE Urine Occult Blood NEGATIVE Urine Nitrite NEGATIVE Urine Bilirubin NEGATIVE Urine Urobilinogen 0.2 (NORMAL) Ur Leukocyte Esterase NEGATIVE Ur Microscopic Review NOT INDICATED Urine Culture Comments NOT INDICATED - Rads (name of study) CT abdomen pelvis Radiology: Final report received, See rad report PD Medical Decision Making - ED course Complexity details: reviewed results, re-evaluated patient, considered differential, d/w patient, d/w family ED course: 46-year-old male with a fat-containing left inguinal hernia. Has a known history of cirrhosis and portal hypertension. Similar to prior study. Cholelithiasis as well. Pain well controlled. No evidence of obstruction. He has seen Dr. Sy in the past for the hernias on the right side. He will contact Dr. Sy for further care. Patient counseled regarding signs and symptoms for which I believe and urgent re-evaluation would be necessary. Patient with good understanding of and agreement to plan and is comfortable going home at this time This document was made in part using voice recognition software. While efforts are made to proofread this document, sound alike and grammatical errors may occur. IMPRESSION: 1. Moderate size fat-containing left inguinal hernia with possible fat stranding at the internal ring. Correlate with site of pain. The inguinal hernia was smaller on the prior study. 2. Developing cirrhosis and portal hypertension, similar in degree compared to the prior study. 3. Cholelithiasis. Departure - Departure Disposition: 01 Home, Self Care Clinical Impression: Inguinal hernia Qualifiers: Obstruction and gangrene presence: without obstruction or gangrene Laterality: unilateral Recurrence: non-recurrent Qualified Code(s): K40.90 - Unilateral inguinal hernia, without obstruction or gangrene, not specified as recurrent Condition: Good Instructions: ED Hernia Inguinal Follow-Up: Fermin Sy MD [Provider Admit Priv/Credential] - Within 1 week Prescriptions: Meloxicam [Mobic] 7.5 mg PO BID PRN #20 tablet PRN Reason: Pain Comments: Your prescription was sent to [facility] in [place]. Please follow-up with your doctor for further care. Please contact Dr. Sy for a consultation regarding your hernia. ABDOMEN: Lung bases: Lung bases are clear. Heart size is normal. Solid organs: The liver is slightly enlarged and demonstrates a lobulated margin suggesting developing cirrhosis. No visible mass. The gallbladder demonstrates normal wall thickness but has dependent calcified material near the neck. The spleen size is slightly enlarged at 13.9 cm in length. The pancreas, adrenal glands, kidneys, and ureters are normal. Peritoneum and bowel: Bowel loops demonstrate normal wall thickness and caliber. No free fluid or air. Normal appendix. Nodes and vessels: Several shotty upper retroperitoneal lymph nodes are present. No suspicious bulky adenopathy. No retroperitoneal or mesenteric adenopathy by size criteria. Aorta and inferior vena cava are normal in size. Miscellaneous: No ventral hernias. Probable prior umbilical hernia repair. PELVIS: Genitourinary: Bladder wall thickness is normal. Normal size prostate gland. Miscellaneous: There is a moderate-sized fat-containing left inguinal hernia and very small right inguinal hernia. There may be slight fat stranding at the left internal ring. Correlate with symptomatology. No pelvic adenopathy. Bones: No suspicious bony lesions. No vertebral body compression fractures. IMPRESSION: 1. Moderate size fat-containing left inguinal hernia with possible fat stranding at the internal ring. Correlate with site of pain. The inguinal hernia was smaller on the prior study. 2. Developing cirrhosis and portal hypertension, similar in degree compared to the prior study. 3. Cholelithiasis. Discharge Date/Time: 02/03/22 18:55
[2022-02-03] MEDS ORDERED: iohexoL-300 100 ML VIAL ONE (17:17)
--- NOTE | 2022-02-03 18:20 | CT Report ---
PROCEDURE: ABDOMEN/PELVIS W INDICATIONS: LLQ abd pain CONTRAST: 100mL Omni 300 TECHNIQUE: After the administration of IV contrast, 5 mm thick sections acquired from the diaphragms to the symp hysis. 5 mm thick coronal and sagittal reformats were acquired. For radiation dose reduction, the f ollowing was used: automated exposure control, adjustment of mA and/or kV according to patient size. COMPARISON: 02/12/2021 FINDINGS: Image quality: Excellent. ABDOMEN: Lung bases: Lung bases are clear. Heart size is normal. Solid organs: The liver is slightly enlarged and demonstrates a lobulated margin suggesting developi ng cirrhosis. No visible mass. The gallbladder demonstrates normal wall thickness but has dependent c alcified material near the neck. The spleen size is slightly enlarged at 13.9 cm in length. The pancr eas, adrenal glands, kidneys, and ureters are normal. Peritoneum and bowel: Bowel loops demonstrate normal wall thickness and caliber. No free fluid or a ir. Normal appendix. Nodes and vessels: Several shotty upper retroperitoneal lymph nodes are present. No suspicious bulky adenopathy. No retroperitoneal or mesenteric adenopathy by size criteria. Aorta and inferior vena c tsering are normal in size. Miscellaneous: No ventral hernias. Probable prior umbilical hernia repair. PELVIS: Genitourinary: Bladder wall thickness is normal. Normal size prostate gland. Miscellaneous: There is a moderate-sized fat-containing left inguinal hernia and very small right ing uinal hernia. There may be slight fat stranding at the left internal ring. Correlate with symptomatol ogy. No pelvic adenopathy. Bones: No suspicious bony lesions. No vertebral body compression fractures. IMPRESSION: 1. Moderate size fat-containing left inguinal hernia with possible fat stranding at the internal ring . Correlate with site of pain. The inguinal hernia was smaller on the prior study. 2. Developing cirrhosis and portal hypertension, similar in degree compared to the prior study. 3. Cholelithiasis. Reviewed by: Laura Corral MD on 02/03/2022 6:19 PM PST Approved by: Laura Corral MD on 02/03/2022 6:19 PM PST Station ID: [id number]
[2022-02-03] MEDS ORDERED: oxyCODONE 5 MG TABLET PO STA (18:40)
[2022-02-03] MEDS ORDERED: KETOROLAC 30 MG/ML VIAL IVP STA (18:41)
[2022-02-03 18:54] VITALS: BP 149/103
[2022-02-03] MEDS ORDERED: iohexoL-300 100 ML VIAL IVP ONE (20:46)
== END 2022-02-03 18:55 | disposition home or self-care (01) ==
LOC: ED 15:10
DX: K40.90 Unilateral inguinal hernia, without obstruction or gangrene, not specified as recurrent (principal); K80.20 Calculus of gallbladder without cholecystitis without obstruction; F17.200 Nicotine dependence, unspecified, uncomplicated
CPT/HCPCS: 36415; 74177; 80053; 81003; 83690; 85025; 96374; 96375; 99284; A9270; J1170; Q9967; 81001; 87086

== ENCOUNTER 2022-02-06 06:50 | Outpatient (CLI) | payer MEDICAID ==
--- NOTE | 2022-02-06 11:40 | Ultrasound Report ---
PROCEDURE: Abdomen Complete INDICATIONS: ALCOHOLIC CIRRHOSIS TECHNIQUE: Real-time scanning was performed of the abdominal and retroperitoneal organs, with image documentatio n. COMPARISON: None. FINDINGS: Liver: Generalized increased echogenicity noted with coarsening of the hepatic echotexture. The main portal vein is patent. Gallbladder: Sonolucent without gallbladder wall thickening or pericholecystic fluid Biliary ducts: Intrahepatic bile ducts are non-dilated. Extrahepatic bile duct caliber measures 5.9 mm. Normal is 6-7 mm or less in diameter, or 10 mm or less post-cholecystectomy. Pancreas: Visualized portions of the pancreas are sonographically normal. Spleen: Spleen is enlarged at 13 cm. No focal mass lesion Kidneys: Kidneys are normal in size and echotexture. Right kidney measures 11.0 cm long; left kidne y measures 10.5 cm long. No hydronephrosis or nephrolithiasis. No solid masses. Aorta: Visualized aorta is normal in caliber at less than 3 cm. Iliacs: Proximal common iliac arteries are normal in caliber at less than 2.5 cm. IVC: Intrahepatic inferior vena cava is patent. Miscellaneous: A persistent left inguinal hernia contains fat without bowel involvement. IMPRESSION: 1. Persistent left inguinal hernia containing fat without bowel involvement 2. Mild splenomegaly 3. Hepatic fatty infiltration Reviewed by: Sree Charles MD on 02/06/2022 10:39 AM [facility] Approved by: Sree Charles MD on 02/06/2022 10:39 AM [facility] Station ID: [id number]
--- NOTE | 2022-02-06 16:53 | Ultrasound Report ---
PROCEDURE: Duplex Lwr Ext Arterial Bilat INDICATIONS: CALF PAIN TECHNIQUE: Color and pulse Doppler interrogation was performed of both lower extremity arterial systems, with im age documentation. COMPARISON: None FINDINGS: Right lower extremity: Common femoral artery: 78 cm/sec, with triphasic flow. Deep femoral artery: 35 cm/sec, with triphasic flow. Proximal superficial femoral artery: 72 cm/sec, with triphasic flow. Mid superficial femoral artery: 65 cm/sec, with triphasic flow. Distal superficial femoral artery: 72 cm/sec, with triphasic flow. Popliteal artery: 56 cm/sec, with triphasic flow. Posterior tibial artery: 63 cm/sec, with triphasic flow. Anterior tibial artery/dorsalis pedis: 55 cm/sec, with triphasic flow. Worley-scale imaging description: Minimal diffuse plaque Left lower extremity: Common femoral artery: 95 cm/sec, with triphasic flow. Deep femoral artery: 49 cm/sec, with triphasic flow. Proximal superficial femoral artery: 86 cm/sec, with triphasic flow. Mid superficial femoral artery: 68 cm/sec, with triphasic flow. Distal superficial femoral artery: 61 cm/sec, with triphasic flow. Popliteal artery: 42 cm/sec, with triphasic flow. Posterior tibial artery: 48 cm/sec, with triphasic flow. Anterior tibial artery/dorsalis pedis: 79 cm/sec, with triphasic flow. Worley-scale imaging description: Minimal diffuse plaque IMPRESSION: No evidence of arterial insufficiency to the bilateral lower extremities. Reviewed by: Jagruti Esteves MD on 02/06/2022 4:51 PM PST Approved by: Jagruti Esteves MD on 02/06/2022 4:51 PM PST Station ID: [id number]
== END 2022-02-06 06:51 | disposition home or self-care (01) ==
LOC: DI 06:50
PROVIDERS: ATTEND Internal Medicine
DX: K70.30 Alcoholic cirrhosis of liver without ascites (principal); K40.90 Unilateral inguinal hernia, without obstruction or gangrene, not specified as recurrent; R16.1 Splenomegaly, not elsewhere classified; M79.662 Pain in left lower leg; M79.661 Pain in right lower leg
CPT/HCPCS: 93925

== ENCOUNTER 2022-02-06 08:30 | Emergency (ER) | payer MEDICAID ==
--- NOTE | 2022-02-06 08:52 | ED Physician Documentation ---
PD HPI MALE - Stated complaint Stated Complaint: MALE - Chief complaint Chief Complaint: Abd Pain - History obtained from History obtained from: Patient - History of Present Illness Timing - onset: How many weeks ago (1) Timing - duration: Weeks (1) Timing - details: Gradual onset, Waxing and waning Associated symptoms: Scrotal swelling (feeling of fullness left side.). No: Dysuria, Urinary frequency, Discharge PD HPI MALE CONTRIB FACTORS: No: Exposed to STD Similar symptoms before: Diagnosis (recent Dx of inguinal hernia without obstruction.) Recently seen: Emergency Dept (3 days ago for lower abd and flank pain. Had labs and CT. Dx with inguinal hernia on imaging. concern for gallbladder/stones but did not have any signs of inflammation. got outpt U/S of the upper abd this morning. Having increased left inguinal/scrotal pain though.) Review of Systems Constitutional: denies: Fever, Chills Nose: denies: Rhinorrhea / runny nose, Congestion Throat: denies: Sore throat Respiratory: reports: Cough GI: reports: Abdominal Pain (left lower abd to inguinal area.), Nausea, Constipation. denies: Abdominal Swelling, Vomiting, Diarrhea : denies: Dysuria, Frequency Skin: denies: Rash, Lesions PD PAST MEDICAL HISTORY - Past Medical History Cardiovascular: None Respiratory: None Neuro: Peripheral neuropathy Endocrine/Autoimmune: None GI: Cirrhosis : None HEENT: Chronic vision loss Psych: None Musculoskeletal: None, Other (no history of gout in the past.) Derm: None - Past Surgical History Past Surgical History: No General: Other HEENT: Other Derm: Skin grafts - Present Medications Home Medications: Ambulatory Orders Medication Instructions Recorded Confirmed Gabapentin [Neurontin] 300 mg PO TID 02/19/20 02/03/22 Spironolactone [Aldactone] 100 mg PO DAILY 02/19/20 02/03/22 Duloxetine HCl [Cymbalta] 60 mg PO DAILY 02/03/22 02/03/22 Losartan Potassium [Cozaar] 100 mg PO DAILY 02/03/22 02/03/22 Meloxicam [Mobic] 7.5 mg PO BID PRN #20 tablet 02/03/22 Naltrexone HCl 100 mg PO DAILY 02/03/22 02/03/22 allopurinoL [Allopurinol] 300 mg PO DAILY 02/03/22 02/03/22 Docusate Sodium 100Mg Capsule 100 mg PO DAILY #20 cap 02/06/22 [Colace 100Mg Capsule] oxyCODONE [Roxicodone] 5 mg PO Q6H PRN #15 tablet 02/06/22 - Allergies Allergies/Adverse Reactions: Allergies Allergy/AdvReac Type Severity Reaction Status Date / Time No Known Drug Allergies Allergy Verified 02/06/22 08:49 - Social History Does the pt smoke?: Yes Smoking Status: Current every day smoker Does the pt drink ETOH?: No Does the pt have substance abuse?: No - Immunizations Immunizations are current?: Yes - POLST Patient has POLST: No PD ED PE NORMAL - Vitals Vital signs reviewed: Yes - General General: Alert and oriented X 3, No acute distress, Well developed/nourished - HEENT HEENT: Moist mucous membranes, Pharynx benign - Cardiac Cardiac: RRR, No murmur - Respiratory Respiratory: Clear bilaterally - Abdomen Abdomen: Normal bowel sounds, Soft, Non tender, Non distended - Male Male : Other (right inguinal area not tender. Left inguinal area tender with some soft tissue fullness. Testicles are felt and seem symmetric, with normal cremaster reflex.) - Rectal Rectal: Deferred - Back Back: No CVA TTP - Derm Derm: Normal color, No rash - Extremities Extremities: No edema, No calf tenderness / cord - Neuro Neuro: Alert and oriented X 3, No motor deficit, Normal speech Results - Vitals Vitals: Vital Signs - 24 hr 02/06/22 02/06/22 08:47 12:22 Temperature 36.8 C Heart Rate 95 102 H Respiratory 16 22 Rate Blood Pressure 157/119 H 150/104 H O2 Saturation 99 98 Oxygen O2 Source Room air - Labs Labs: Laboratory Tests 02/06/22 10:21 Urine Color YELLOW Urine Clarity CLEAR Urine pH 6.5 Ur Specific Allred 1.010 Urine Protein NEGATIVE Urine Glucose (UA) NEGATIVE Urine Ketones NEGATIVE Urine Occult Blood TRACE-LYSE Urine Nitrite NEGATIVE Urine Bilirubin NEGATIVE Urine Urobilinogen 0.2 (NORMAL) Ur Leukocyte Esterase NEGATIVE Ur Microscopic Review NOT INDICATED Urine Culture Comments NOT INDICATED PD Medical Decision Making - ED course Complexity details: reviewed old records (review of ER visit 3 days ago and cT report showed hernia then, with gallstones but no cholecystitis. No kidney stones. ), considered differential (I did not feel re-imaging was needed. Clinically does not have incoarcerated hernia. I can reduce it to inguinal canal easily, though is tender.), d/w patient Departure - Departure Disposition: 01 Home, Self Care Clinical Impression: Deep inguinal pain, left Condition: Stable Record reviewed to determine appropriate education?: Yes Instructions: ED Hernia Inguinal Follow-Up: Fermin Sy MD [Provider Admit Priv/Credential] - Prescriptions: Docusate Sodium 100Mg Capsule [Colace 100Mg Capsule] 100 mg PO DAILY #20 cap oxyCODONE [Roxicodone] 5 mg PO Q6H PRN #15 tablet PRN Reason: Pain Comments: Your pain seems to be coming from the inguinal hernia. It does not seem incarcerated or trapped. I presume there is some stretching of the ligaments and tissue in that area causing the pain. Follow-up with Dr. Ahn next week as planned. Meanwhile add a stool softener. Continue with your anti-inflammatory of meloxicam. Take it twice daily. To that add Tylenol every 4-6 hours if needed for pain. To that you could add oxycodone every 6 hours if needed. This would be intended short-term until following up with the general surgeon next week. Return to the ER if this has increased pain or it seems to be firm hard tender or causing vomiting. I reviewed your CT scan from the other day and there was no signs of kidney stones or such at that time. No other acute abnormality noted. I transmitted prescriptions to [facility] pharmacy. I am prescribing a short course of narcotic pain medication for you. These are potentially dangerous and addictive medications that should be used carefully. These medications may constipate you. Take an darb-flh-[id number] stool softener such as docusate twice daily with plenty of water while taking these medications. If you go 24 hours without a bowel movement, take [id number] MiraLAX, per package instructions. Do not drink or drive while taking these medications. If you received narcotic or sedating medications while in the emergency department do not drive for 24 hours. Store this medication in a safe, secure place and out of reach of children. It is a violation of federal law to give or sell this medication to another person or to use in a manner other than prescribed. The ED will not refill narcotic prescriptions, including prescriptions lost or stolen. You can dispose of unwanted medications at the [facility]'s office or at several pharmacies such as [facility]. Discharge Date/Time: 02/06/22 12:26
[2022-02-06] MEDS ORDERED: KETOROLAC 30 MG/ML VIAL IM STA (10:05)
[2022-02-06] MEDS ORDERED: HYDROmorphone 1 MG/ML CARPUJECT IM STA (10:08)
[2022-02-06 10:26] LABS: BILIRUBIN,URINE NEGATIVE (NEGATIVE); GLUCOSE, URINE (UA) NEGATIVE (NEGATIVE); KETONES,URINE (UA) NEGATIVE (NEGATIVE); LEUKOCYTE ESTERASE, URINE NEGATIVE (NEGATIVE); NITRITE,URINE NEGATIVE (NEGATIVE); OCCULT BLOOD,URINE TRACE-LYSE (NEGATIVE); PH,URINE 6.5 PH (5.0-7.5); PROTEIN,URINE NEGATIVE (NEGATIVE); UROBILINOGEN,URINE 0.2 (NORMAL) E.U./dL (NORMAL)
[2022-02-06 10:27] LABS: CLARITY,URINE CLEAR (CLEAR)
[2022-02-06] MEDS ORDERED: oxyCODONE 5 MG TABLET PO STA (12:13)
[2022-02-06 12:23] VITALS: BP 150/104
== END 2022-02-06 12:26 | disposition home or self-care (01) ==
LOC: ED 08:30
DX: N50.82 Scrotal pain (principal); R10.32 Left lower quadrant pain; F17.200 Nicotine dependence, unspecified, uncomplicated
CPT/HCPCS: 81003; 96372; 99283; 99284; A9270; J1170; 81001; 87086

== ENCOUNTER 2022-02-18 06:17 | Day surgery (SDC) | payer MEDICAID ==
[~2022-02-18 06:17] MED LIST: CEFAZOLIN 2G/50ML 0.9% NS 2 GM/50 ML BAG IV ONE
[2022-02-18] MEDS ORDERED: LACTATED RINGERS 1,000 ML IV ONE (06:44)
[2022-02-18] MEDS ORDERED: ePHEDrine 50 MG/ML VIAL IVP PRN (06:54)
[2022-02-18] MEDS ORDERED: NALOXONE 0.4 MG/ML VIAL IVP PRN (06:54)
[2022-02-18] MEDS ORDERED: fentaNYL 100 MCG/2 ML VIAL IVP PRN (06:54)
[2022-02-18] MEDS ORDERED: ONDANSETRON 4 MG/2 ML VIAL IVP PRN (06:54)
[2022-02-18] MEDS ORDERED: HYDROmorphone 0.5 MG/0.5 ML SYRINGE IVP PRN (06:54)
[2022-02-18] MEDS ORDERED: ATROPINE ABBOJECT 1 MG/10 ML SYRINGE IVP PRN (06:54)
[2022-02-18] MEDS ORDERED: METOCLOPRAMIDE 10 MG/2 ML VIAL IVP PRN (06:54)
[2022-02-18] MEDS ORDERED: MORPHINE 2 MG/ML CARPUJECT IVP PRN (06:54)
--- NOTE | 2022-02-18 06:54 | ANESTHESIA ---
Pre-Anesthesia VS, & Labs - Diagnosis L inguinal hernia - Procedure L open inguinal hernia repair with mesh Vital Signs: Temp Pulse Resp BP Pulse Ox O2 Flow Rate 36.1 C L 117 H 18 162/105 H 98 02/18/22 06:29 02/18/22 06:29 02/18/22 06:29 02/18/22 06:29 02/18/22 06:29 Height: 5 ft 9 in Weight (kg): 97.6 kg Body Mass Index: 31.7 BMI Classification: Obese - NPO >8 hours - Lab Results Lab results reviewed: Yes Home Medications and Allergies Gabapentin [Neurontin] 300 mg PO TID 02/19/20 Spironolactone [Aldactone] 100 mg PO DAILY 02/19/20 Duloxetine HCl [Cymbalta] 60 mg PO DAILY 02/03/22 Losartan Potassium [Cozaar] 100 mg PO DAILY 02/03/22 Naltrexone HCl 100 mg PO DAILY 02/03/22 allopurinoL [Allopurinol] 300 mg PO DAILY 02/03/22 Allergies/Adverse Reactions: Allergies Allergy/AdvReac Type Severity Reaction Status Date / Time No Known Drug Allergies Allergy Verified 02/06/22 08:49 Anes History & Medical History - Anesthetic History Anesthesia Complications: reports: No previous complications Family history of Anesthesia Complications: Denies Family history of Malignant Hyperthermia: Denies - Medical History Cardiovascular: reports: Hypertension Pulmonary: reports: None Gastrointestinal: reports: Cirrhosis Urinary: reports: None Neuro: reports: Peripheral neuropathy Musculoskeletal: reports: Gout Endocrine/Autoimmune: reports: None Blood Disorders: reports: None Skin: reports: None Smoking Status: Current every day smoker History of Cancer?: No - Surgical History General: reports: Other Eyes Ears Nose Throat (EENT): reports: Other Dermatologic: reports: Skin grafts Exam General: Alert, Oriented x3, Cooperative Dental: Dentures full Upper, Poor dentition Mouth Openin Fingerbreadth Neck Mobility: Normal Mallampati classification: II Thyromental Distance: 4-6 cm Respiratory: Lungs clear, Normal breath sounds, No respiratory distress Cardiovascular: Regular rate (tachy (anxiety per pt)) Neurological: Normal speech Mental/Cognitive Status: Alert/Oriented X3, Normal for patient Cognitive Status: Within normal limits Plan Anesthesia Type: General Consent for Procedure(s) Verified and Reviewed: Yes Code Status: Attempt Resuscitation ASA classification: 2-Mild systemic disease Is this case an emergency?: No
[2022-02-18] MEDS ORDERED: MIDAZOLAM 2 MG/2 ML VIAL ONE (06:58)
[2022-02-18] MEDS ORDERED: LIDOCAINE-PF 2% 10 ML AMP SUBQ ONE (07:00)
[2022-02-18] MEDS ORDERED: PROPOFOL 200 MG/20 ML VIAL IVP ONE (07:00)
[2022-02-18] MEDS ORDERED: LACTATED RINGERS 1,000 ML IV SCH (07:00)
[2022-02-18] MEDS ORDERED: LIDOCAINE-MPF 1% 30 ML VIAL ONE (07:07)
[2022-02-18] MEDS ORDERED: BUPIVACAINE 0.25% PF 30 ML VIAL ONE ×2 (07:07→07:08)
[2022-02-18] MEDS ORDERED: DEXAMETHASONE 4 MG/ML VIAL ONE (07:48)
[2022-02-18] MEDS ORDERED: ONDANSETRON 4 MG/2 ML VIAL ONE (07:48)
[2022-02-18] MEDS ORDERED: ACETAMINOPHEN 1,000 MG/100 ML 1,000 MG/100 ML BAG IV ONE (07:55)
[2022-02-18] MEDS ORDERED: BUPIVACAINE 0.25% PF 30 ML VIAL SUBQ ONE (08:05)
[2022-02-18] MEDS ORDERED: fentaNYL 100 MCG/2 ML VIAL ONE (08:45)
[2022-02-18] MEDS ORDERED: LACTATED RINGERS 950 ML IV ONE (09:03)
[2022-02-18] MEDS ORDERED: oxyCODONE 5 MG TABLET PO PRN (09:08)
--- NOTE | 2022-02-18 09:14 | OPERATIVE REPORT ---
Operative Report - General Procedure Date: 02/18/22 Planned Procedure: open left inguinal hernia Pre-Op Diagnosis: left inguinal hernia Procedure Performed: open left inguinal hernia repair Post Op Diagnosis: large direct inguinal hernia - Procedure Note Primary Surgeon: roger cardona md Anesthesia Technique: General LMA, Local Pathology: none Estimated Blood Loss (mL): 2 Drain/Tube Type: Other (none) Indications: painful hernia Findings: as above Complications: none - Other Other Information/Narrative: Patient was properly identified brought to the operating room and placed in supine position. Sequential compression devices were placed. Laryngeal mask anesthesia was induced. He was prepped and draped in a sterile fashion and given preoperative antibiotics. Local anesthetic was given throughout the procedure. A 5 cm incision was made in the direction of Laurel's lines just cephalad of the pubic tubercle. Dissection proceeded with cutting current cautery. The superficial epigastric vein was identified clamped divided and tied with 3-0 Vicryl. Dissection proceeded down to the aponeurosis. The aponeurosis was opened in the direction of its fibers and extended to the external ring. Cord structures were mobilized and brought up. The nerves were carefully protected and preserved. Cord structures were mobilized and brought up. A large direct hernia was identified. The direct bulge was mobilized away from surrounding structures. It was reduced and floor repaired with a 2-0 silk pursestring suture. There was no indirect inguinal hernia. Preperitoneal fat was removed. The base was tied with 2 O vicryl. Polypropylene mesh was cut to size and with tails. The mesh was secured with multiple interrupted 0 Ethibond sutures. She was placed along the pubic tubercle, Saleem's ligament area and along the shelving border of Poupart's ligament. Sutures were placed medially along the abdominal wall musculature and internal oblique. The medial tail of the mesh was secured to the shelving border of Poupart's ligament with 3 interrupted 0 ethibond sutures recreating the internal ring of appropriate size. An additional suture was placed in the crotch of the mesh recreating an internal ring of appropriate size. Aponeurosis was closed with a running 2-0 Vicryl suture. The opposite was closed with interrupted 3-0 Vicryl suture. Buried interrupted subdermal 3-0 Vicryl sutures were then placed. And was closed with a running 4-0 Monocryl subcuticular suture. Dressing was applied. Patient was awakened and brought to recovery in good condition.
--- NOTE | 2022-02-18 09:29 | ANESTHESIA POST OP EVALUATION ---
Anesthesia Post Eval - Post Anesthesia Eval Vitals: Last Vital Signs Temp 36.2 C L 02/18/22 09:24 Pulse 98 02/18/22 09:24 Resp 19 02/18/22 09:24 BP 105/91 H 02/18/22 09:24 Pulse Ox 98 02/18/22 09:24 O2 Flow Rate CV Function Including HR & BP: Stable Pain Control: Satisfactory Nausea & Vomiting: Negative Mental Status: Baseline Respiratory Status: Airway Patent Hydration Status: Satisfactory Anesthesia Complications: None
[2022-02-18] MEDS ORDERED: oxyCODONE 5 MG TABLET ONE (09:40)
[2022-02-18 09:53] VITALS: BP 111/79
== END 2022-02-18 06:18 | disposition home or self-care (01) ==
LOC: SDS 06:17
PROVIDERS: ATTEND Surgery
DX: K40.90 Unilateral inguinal hernia, without obstruction or gangrene, not specified as recurrent (principal); E66.9 Obesity, unspecified; Z68.31 Body mass index [BMI] 31.0-31.9, adult; F17.200 Nicotine dependence, unspecified, uncomplicated
CPT/HCPCS: 49505; A9270; C1781; J0131; J0690; J7120

== ENCOUNTER 2023-09-18 12:43 | Emergency (ER) | payer MEDICAID, OTHER ==
--- NOTE | 2023-09-18 13:43 | ED Physician Documentation ---
History of Present Illness - Stated complaint Stated Complaint: RT TOE PX - Chief complaint Chief Complaint: General - History obtained from History obtained from: Patient, Family () - History of Present Illness Timing: Prior to arrival, How many days ago (2) - Additonal information Additional information: Patient is a 47-year-old male presenting to the emergency department with right foot pain after symptoms started on Wednesday. He notes some swelling and redness started the next day as well. He denies any fevers no worsening swelling extending up his leg. Patient's pain is mainly at his right great toe. He suspects he may have stubbed it when going to the bathroom but denies any other trauma and does not recall specifically injuring his right foot. He notes swelling has stayed about the same but is significantly worse compared to left foot. He has a history of gout is on allopurinol daily and takes as prescribed. He denies any fevers or chills associated with his symptoms. PD PAST MEDICAL HISTORY - Past Medical History Past Medical History: Yes Cardiovascular: Hypertension Respiratory: None Neuro: Peripheral neuropathy Endocrine/Autoimmune: None GI: Cirrhosis : None HEENT: Chronic vision loss Psych: None Musculoskeletal: Gout Derm: None - Past Surgical History Past Surgical History: No General: Other HEENT: Other Derm: Skin grafts - Present Medications Home Medications: Ambulatory Orders Medication Instructions Recorded Confirmed Gabapentin [Neurontin] 300 mg PO TID 02/19/20 02/18/22 Spironolactone [Aldactone] 100 mg PO DAILY 02/19/20 02/18/22 Duloxetine HCl [Cymbalta] 60 mg PO DAILY 02/03/22 02/18/22 Losartan Potassium [Cozaar] 100 mg PO DAILY 02/03/22 02/18/22 Naltrexone HCl 100 mg PO DAILY 02/03/22 02/18/22 allopurinoL [Allopurinol] 300 mg PO DAILY 02/03/22 02/18/22 Docusate Sodium 100Mg Capsule 100 mg PO DAILY #20 cap 02/06/22 02/18/22 [Colace 100Mg Capsule] oxyCODONE [Roxicodone] 5 mg PO Q4HR PRN #35 tablet 02/18/22 predniSONE [Deltasone] 20 mg PO [id number] #21 tab 09/18/23 - Allergies Allergies/Adverse Reactions: Allergies Allergy/AdvReac Type Severity Reaction Status Date / Time No Known Drug Allergies Allergy Verified 09/18/23 12:51 - Social History Does the pt smoke?: Yes Smoking Status: Current every day smoker Does the pt drink ETOH?: No Does the pt have substance abuse?: No - Immunizations Immunizations are current?: Yes - POLST Patient has POLST: No Results - Vitals Vitals: Vital Signs - 24 hr 09/18/23 12:51 Temperature 36.6 C Heart Rate 99 Respiratory 16 Rate Blood Pressure 160/90 H O2 Saturation 100 Oxygen O2 Source Room air - Labs Labs: Laboratory Tests 09/18/23 09/18/23 09/18/23 13:54 13:54 13:54 WBC 9.4 RBC 3.79 L Hgb 13.4 L Hct 40.7 L MCV 107.4 H MCH 35.4 H MCHC 32.9 RDW 14.8 Plt Count 212 MPV 11.3 Neut # (Auto) 5.8 Lymph # (Auto) 2.0 Hendry # (Auto) 1.5 H Eos # (Auto) 0.1 Baso # (Auto) 0.0 Absolute Nucleated RBC 0.00 Nucleated RBC % 0.0 ESR 35 H Sodium 137 Potassium 3.4 L Chloride 101 Carbon Dioxide 27 Anion Gap 9.0 BUN 12 Creatinine 1.3 Estimated GFR (MDRD) 59 L Glucose 105 H Uric Acid 6.7 Calcium 9.6 Total Bilirubin 0.9 AST 38 ALT 53 Alkaline Phosphatase 44 C-Reactive Protein 4.7 H Total Protein 7.4 Albumin 4.2 Globulin 3.2 Albumin/Globulin Ratio 1.3 PD Medical Decision Making - ED course Complexity details: reviewed old records ED course: Patient is a 47-year-old male presenting to the emergency department with right foot pain. Symptoms started about 2 days ago he suspects he may have stubbed it but does not recall doing this he suspects may be when he was getting up in the middle of the night to pee. He notes erythema has been along the medial portion of his right foot but has not progressively worsened. He has a history of gout takes allopurinol daily but has not missed any doses. He denies any drinking he denies eating meat at home. Vital stable on arrival. Patient is afebrile nontachycardic. Physical exam shows tenderness and swelling to right MTP joint. Significantly decreased range of motion secondary to pain at first digit. Digits 2 through 5 do show minimal movement. Good capillary refill and sensation intact distally. DP and PT pulses 2+. X-ray obtained does show lucency at the MTP joint with concerns for inflammatory arthropathy. These findings could be consistent with recurrent gout the findings. No signs of tophi appreciated. Basic labs were obtained given x-ray findings. Patient notably does not have an elevated uric acid level however ESR and CRP are slightly elevated he has no appreciable leukocytosis. GFR is slightly decreased at 59 today. Baseline is around 70s in the past. Discussed with patient we will try course of steroids for most likely acute gout attack. He was given postop shoe and crutches here in emergency department to help with symptoms. Instructed patient to elevate ice and will do this tape tapered steroid dose given recent GFR function. Patient agreeable with this plan he will follow-up with PCP in 1 week for reevaluation. He is instructed to return with any worsening pain fevers redness or streaking of the leg. He is agreeable with this plan. Departure - Departure Disposition: 01 Home, Self Care Clinical Impression: Elevated creatine kinase, Right foot pain, Gout attack, Abnormal radiograph, Acute pain Condition: Good Prescriptions: predniSONE [Deltasone] 20 mg PO [id number] #21 tab Comments: You were seen here in the emergency department for your right foot pain I have placed you in a postop shoe and crutches to help with your symptoms you should remain off of it until inflammation swelling and pain has improved have given you a course of steroids to help with your symptoms and you should keep foot elevated. Your x-ray showed degenerative changes this could be secondary to recurrent gout however you should follow-up with your primary care doctor for reevaluation. Continue with allopurinol while he was already on the steroids. Return with any fevers worsening redness streaking up the leg or worsening swelling to the leg. Forms: PCP List
[2023-09-18 14:02] LABS: BASOPHILS % (AUTO) 0.4 %; EOSINOPHILS # (AUTO) 0.1 10^3/uL (0.0-0.7); EOSINOPHILS % (AUTO) 0.8 %; HCT - HEMATOCRIT 40.7 % (42.0-52.0); HGB - HEMOGLOBIN 13.4 g/dL (14.0-18.0); LYMPHOCYTES % (AUTO) 21.4 %; MEAN CORPUSCULAR HEMOGLOBIN 35.4 pg (27.0-31.0); MEAN CORPUSCULAR HGB CONC 32.9 g/dL (32.0-36.0); MEAN CORPUSCULAR VOLUME 107.4 fL (80.0-94.0); MEAN PLATELET VOLUME 11.3 fL (7.4-11.4); MONOCYTES # (AUTO) 1.5 10^3/uL (0.0-1.0); MONOCYTES % (AUTO) 15.5 %; NEUTROPHILS # (AUTO) 5.8 10^3/uL (1.5-6.6); NEUTROPHILS % (AUTO) 61.5 %; PLT - PLATELET COUNT 212 10^3/uL (130-450); RED BLOOD COUNT 3.79 10^6/uL (4.70-6.10); RED CELL DISTRIBUTION WIDTH 14.8 % (12.0-15.0); WHITE BLOOD COUNT 9.4 x10^3/uL (4.8-10.8)
--- NOTE | 2023-09-18 14:11 | XRAY Report ---
PROCEDURE: Foot 3+V RT INDICATIONS: Trauma TECHNIQUE: 3 views of the foot were acquired. COMPARISON: None. FINDINGS: Bones: No fractures or dislocations. No suspicious bony lesions. Degenerative changes of the right 1st metatarsophalangeal joint. Subchondral lucency involving the head of the right 1st metatarsal. Mi ld overlying soft tissue swelling. Soft tissues: Dorsal right forefoot soft tissue swelling. No tibiotalar joint effusion. Achilles ten don appears normal. IMPRESSION: No acute bony abnormality. Dorsal right forefoot soft tissue swelling. Degenerative changes of the right 1st metatarsal phalangeal joint with subchondral lucency of the hea d of the 1st metatarsal and overlying soft tissue edema. Findings may represent subchondral degenerat ana maria cystic change although osseous erosion of inflammatory arthropathy not excluded. Reviewed by: Jonas Anders MD on 09/18/2023 2:09 PM PDT Approved by: Jonas Anders MD on 09/18/2023 2:09 PM PDT Station ID: [id number]
[2023-09-18 14:17] LABS: ALBUMIN 4.2 g/dL (3.2-5.5); ALBUMIN/GLOBULIN RATIO 1.3 (1.0-2.2); BILIRUBIN,TOTAL 0.9 mg/dL (0.2-1.0); CALCIUM 9.6 mg/dL (8.5-10.3); CREATININE 1.3 mg/dL (0.6-1.3); CRP - C-REACTIVE PROTEIN 4.7 mg/dL (<0.5); POTASSIUM 3.4 mmol/L (3.5-4.5); TOTAL PROTEIN 7.4 g/dL (6.4-8.9); URIC ACID 6.7 mg/dL (4.4-7.6)
[2023-09-18 15:30] VITALS: BP 155/68; O2SAT 95
== END 2023-09-18 15:28 | disposition home or self-care (01) ==
LOC: ED 12:43
DX: M10.9 Gout, unspecified (principal); M79.671 Pain in right foot; R74.8 Abnormal levels of other serum enzymes; G62.9 Polyneuropathy, unspecified; F17.200 Nicotine dependence, unspecified, uncomplicated; Z79.899 Other long term (current) drug therapy
CPT/HCPCS: 36415; 80053; 84550; 85025; 85651; 86140; 99284

== ENCOUNTER 2024-09-26 11:39 | Inpatient (IN) ==
--- NOTE | 2024-09-26 12:30 | ED Physician Documentation ---
History of Present Illness Stated complaint Stated Complaint: GLF Chief complaint Chief Complaint: General History obtained from History obtained from: Patient History of Present Illness Timing: Prior to arrival Additonal information Additional information: Patient is a 48-year-old male presenting to the emergency department with fall he has not eaten or slept in 3 days according to spouse notes he has mainly been in bed she has not believe he has drink in about 3 days. He has a history of alcohol abuse. She notes she found him 2 or 3 times after he stood up felt dizzy and hit his head against the dresser. After he did this he denies any loss of consciousness but reports some back pain right sided abdominal pain and a laceration to his anterior nose. Patient has history of alcohol abuse and denies any drinking for about 3 days now. He has some tremors on arrival but is answering questions appropriately and O x 3 in no acute distress. Per he will occasionally become forgetful sounds similar to hallucinations or becomes confused on the timeline thinking they are "20 years ago and that they need to go diamond picker the car." Meds/Allgy Home Medications Ambulatory Orders Medication Instructions Recorded Confirmed naltrexone 50 mg tablet 100 mg PO DAILY 02/03/2212/31 docusate sodium 100 mg capsule 100 mg PO DAILY #20 cap s 02/06/22 02/18/22 (Stool Softener) oxycodone 5 mg tablet 5 mg PO Q4HR PRN Pain #35 ta bs 02/18/22 prednisone 20 mg tablet 20 mg PO [id number] #21 tabs 09/18/23 gabapentin 800 mg tablet 800 mg PO TID 03/10/24 metoprolol succinate 50 mg See Rx Instructions .Route 03/10/24 tablet,extended release 24 hr .COMPLEX #28 tabs spironolactone 50 mg tablet 25 mg PO QDAY 03/10/24 tizanidine 2 mg tablet 2 mg PO BID PRN leg spasm duloxetine 60 mg capsule,delayed See Rx Instructions . Route 04/29/24 release .COMPLEX #28 caps losartan 100 mg tablet (Cozaar) 100 mg PO DAILY #90 ta bs 08/18/24 allopurinol 300 mg tablet See Rx Instructions .Route 0 08/24/24 .COMPLEX #90 tabs Allergies Allergies Allergy/AdvReac Type Severity Reaction Status Date / Time No Known Drug Allergies Allergy Verified 09/26/24 11:48 PFSH Active Problems All Active Problems (Updated 09/26/24 @ 14:31 by Marni Floyd PA-C) Alcohol withdrawal seizure (Acute) Social History Social History Smoking Status: Never smoker How many cigarettes a day do you smoke? (20 cigarettes=1 Pk): 6 Living arrangement: At home Living Condition: With spouse/s.o. Do you feel safe in your home environment?: Yes History of physical, verbal, emotional, or financial abuse?: No Are you sexually active?: Yes POLST Patient has POLST: No Exam Exam Vital Signs: Vital Signs x48h Temp Pulse Resp BP Pulse Ox 09/26/24 14:00 125 H 17 158/106 H 92 09/26/24 12:17 96 22 143/105 H 93 09/26/24 11:44 36.7 C 86 19 137/96 H 95 Results Vitals Vitals: Vital Signs - 24 hr 09/26/24 11:44 09/26/24 12:17 09/26/24 14:00 Temperature 36.7 C Temperature Source Temporal Artery Scan Pulse Rate 86 96 125 H Respiratory Rate 19 22 17 Blood Pressure 137/96 H 143/105 H 158/106 H O2 Saturation 95 93 92 O2 Source Room air Room air Room air Pain Intensity 8 6 Oxygen O2 Source Room air Labs Labs: Laboratory Tests 09/26/24 09/26/24 12:24 12:40 WBC 5.7 RBC 3.95 L Hgb 14.2 Hct 41.1 L MCV 104.1 H MCH 35.9 H MCHC 34.5 RDW 12.4 Plt Count 55 L MPV 12.8 H Neut # (Auto) 4.9 Lymph # (Auto) 0.4 L [place] # (Auto) 0.4 Eos # (Auto) 0.0 Baso # (Auto) 0.0 Absolute Nucleated RBC 0.00 Nucleated RBC % 0.0 Sodium 132 L Potassium 3.3 L Chloride 91 L Carbon Dioxide 30 Anion Gap 11.0 BUN 6 Creatinine 0.9 Estimated GFR (MDRD) 90 Glucose 177 H Calcium 9.0 Magnesium 1.2 L Total Bilirubin 1.6 H AST 259 H ALT 103 H Alkaline Phosphatase 73 Total Creatine Kinase 493 H Total Protein 7.3 Albumin 4.2 Globulin 3.1 Albumin/Globulin Ratio 1.4 Lipase 48 Urine Color DK. ORANGE Urine Clarity CLEAR Urine pH Ur Specific [place] 1.015 Urine Protein Urine Glucose (UA) NEGATIVE Urine Ketones Urine Occult Blood Urine Nitrite NEGATIVE Urine Bilirubin COLOR INTERFERENCE Urine Urobilinogen Ur Leukocyte Esterase NEGATIVE Urine RBC 0-5 Urine WBC 0-3 Ur Squamous Epith Cells RARE Squamous Urine Bacteria Few Urine Casts 0-2 Hyaline Casts Ur Microscopic Review INDICATED Urine Culture Comments NOT INDICATED Ethyl Alcohol < 10.0 Procedures Laceration (location) Nose Anterior: Length in cm: 1 Wound type: Irregular Neurovascular status: Sensory intact and Motor intact Wound preparation: Irrigated copiously NS Skin layer closure: Dermabond Other: Patient tolerated well and No complications PD Medical Decision Making ED course Complexity details: reviewed old records and reviewed results ED course: Patient is a 48-year-old male presenting to the emergency department with recurrent falls at home patient presents with left anterior nose with concerns for recurrent falls and altered mental status according to patient is a regular alcoholic last drink was about 3 days ago presents here with increased confusion after recurrent falls at home. He reports some lower back pain right sided flank pain and abdominal pain. Patient has history of seizures with last one about 4 years ago from alcohol withdrawal. Patient's vitals are stable on arrival labs here in the emergency department show no leukocytosis he has sig nificant hypomagnesemia at 1.2 elevated CK at 493 and blood in his urine on examination. CMP shows no significant BLU mild hypokalemia at 3.3 will replace magnesium and potassium here in the ED and patient sent for head CT cervical spine CT abdomen pelvis. CT head and cervical spine were difficult to determine as patient was moving while patient was in CT scanner he did have seizure activity lasting about a minute with significant postictal confusion on my evaluation of patient. 1 mg of Ativan was ordered post seizure and no recurrent episodes here in the ED. Patient is on no antiepileptics on his medication list. CT abdomen pelvis shows cirrhosis but no other acute abdominal findings. IV fluids Zofran and Ativan as needed was ordered for patient. I discussed case with hospitalist she would like to have cervical spine cleared but excepted patient to the ICU for alcohol withdrawal with seizures. Patient admitted and I updated patient's spouse who presented here with patient. Dr. Lees accepted pateitn to the ICU. Discharge Plan Discharge Patient Disposition: 66 [facility] DC/Xfer Condition: Good Clinical Impression: Alcohol withdrawal seizure Prescriptions: No Action gabapentin 800 mg tablet 800 mg PO TID spironolactone 50 mg tablet 25 mg PO QDAY tizanidine 2 mg tablet 2 mg PO BID PRN (Reason: leg spasm) metoprolol succinate 50 mg tablet extended release 24 hr See Rx Instructions .ROUTE .COMPLEX Qty: 28 0RF Dose Instruction: TAKE 1 TABLET BY MOUTH EVERY MORNING Rx Instructions: TAKE 1 TABLET BY MOUTH EVERY MORNING duloxetine 60 mg capsule,delayed release(DR/EC) See Rx Instructions .ROUTE .COMPLEX Qty: 28 0RF Dose Instruction: TAKE 1 CAPSULE BY MOUTH ONCE DAILY Rx Instructions: TAKE 1 CAPSULE BY MOUTH ONCE DAILY- NEEDS APPOINTMENT losartan [Cozaar] 100 mg tablet 100 mg PO DAILY Qty: 90 0RF allopurinol 300 mg tablet See Rx Instructions .ROUTE .COMPLEX Qty: 90 0RF Dose Instruction: TAKE 1 TABLET BY MOUTH DAILY Rx Instructions: TAKE 1 TABLET BY MOUTH DAILY naltrexone 50 MG tablet 100 mg PO DAILY Patient Comments: TAKE 2 TABLETS BY MOUTH EVERY DAY docusate sodium [Stool Softener] 100 MG capsule 100 mg PO DAILY Qty: 20 0RF oxycodone 5 MG tablet 5 mg PO Q4HR PRN (Reason: Pain) Qty: 35 0RF prednisone 20 MG tablet 20 mg PO [id number] Qty: 21 0RF Rx Instructions: Day 1-4: Take 60mg (3 tablets) daily; Day 5-7: Take 40mg (2 tablets) daily; Day 8-10: Take 20mg (1 tablet) daily Print Language: Polish
[2024-09-26 12:50] LABS: ALT ALANINE AMINOTRANSFERASE 103 IU/L (10-60); AST ASPARTATE AMINOTRANSFERASE 259 IU/L (10-42); BUN - BLOOD UREA NITROGEN 6 mg/dL (6-20); CARBON DIOXIDE - CO2 30 mmol/L (21-32); CREATININE 0.9 mg/dL (0.6-1.3); ETOH - ETHANOL < 10.0 mg/dL; GFR - MDRD 90 (>89)
[2024-09-26 12:51] LABS: HCT - HEMATOCRIT 41.1 % (42.0-52.0); HGB - HEMOGLOBIN 14.2 g/dL (14.0-18.0); MEAN PLATELET VOLUME 12.8 fL (7.4-11.4); NRBC ABSOLUTE COUNT (AUTO) 0.00 x10^3/uL; NUCLEATED RED BLOOD CELLS AUTO 0.0 /100WBC; PLT - PLATELET COUNT 55 10^3/uL (130-450); RED CELL DISTRIBUTION WIDTH 12.4 % (12.0-15.0)
[2024-09-26] MEDS ORDERED: LORazepam 2 MG/ML VIAL ONE (13:08)
[2024-09-26] MEDS: LORazepam 2 MG/ML VIAL IVP STA (13:10)
[2024-09-26 13:17] LABS: GLUCOSE, URINE (UA) NEGATIVE (NEGATIVE)
[2024-09-26 13:21] LABS: CASTS, URINE 0-2 Hyaline Casts /LPF; SQUAMOUS EPITHELIAL CELL,UR RARE Squamous (<= Few)
[2024-09-26] MEDS ORDERED: ONDANSETRON 4 MG/2 ML VIAL IVP PRN ×2 (13:26→16:02)
[2024-09-26] MEDS: SODIUM CHLORIDE 0.9% 1,000 ML IV STA (13:31)
[2024-09-26] MEDS: MAGNESIUM SULFATE 2 GRAM 2 GM/50 ML BAG IV ONE (13:31)
--- NOTE | 2024-09-26 13:58 | CT Report ---
PROCEDURE: CT Abdomen/Pelvis W INDICATIONS: abdominal pain right upper abdomen after fall CONTRAST: OMNI 300 100ML TECHNIQUE: After the administration of intravenous contrast, a CT scan of the abdomen and pelvis was performed. Images were recorded and evaluated at appropriate window settings. Reformats: coronal and sagittal. For radiation dose reduction, the following was used: automated exposure control, adjustment of mA and/or kV according to patient size. COMPARISON: Ultrasound abdomen 02/06/2022, CT abdomen pelvis 02/03/2022 FINDINGS: Image quality: Diagnostic. Lower chest: Unremarkable. Liver: No solid mass. Significant steatosis. Liver measures 18.7 cm. Gallbladder: Small dependent luminal stones without wall thickening. Biliary tree: No intrahepatic or extrahepatic dilation, accounting for age. Spleen: No splenomegaly. Pancreas: No pancreatic ductal dilation. Adrenals: No adrenal nodule. Kidneys and ureters: No hydronephrosis. No renal cystic lesion which requires follow up. No solid mass. Stomach, bowel and peritoneum: No gastric or small bowel dilation. No abnormal wall thickening. No pathologic free fluid. Minimal diverticula. Lymph nodes: No central or retroperitoneal adenopathy. Vessels: No infrarenal aortic aneurysm. Patent portal vein. PELVIS Reproductive organs: Unremarkable. Bladder: No abnormal wall thickening. Pelvic lymph nodes: No pelvic adenopathy by size criteria. Bones: No aggressive osseous abnormality. Other: No significant ventral or inguinal hernia. IMPRESSION: Cholelithiasis without cholecystitis. Diffuse hepatic steatosis. Reviewed by: Rsoalva Montgomery MD on 09/26/2024 1:56 PM PDT Approved by: Rosalva Montgomery MD on 09/26/2024 1:56 PM PDT Station ID: [id number]
--- NOTE | 2024-09-26 14:02 | CT Report ---
PROCEDURE: CT Head WO INDICATIONS: head pain after fall TECHNIQUE: CT of the head was performed, without intravenous contrast. Reformats: Coronal and sagittal. For radiation dose reduction, the following was used: automated exposure control, adjustment of mA and/or kV according to patient size. COMPARISON: None. FINDINGS: Image quality: Extensive patient motion artifact.. CSF spaces: Basal cisterns are patent. No extra-axial fluid collections. Ventricles are normal in size and shape. Brain: Patient motion artifact limits diagnostic quality of images. No midline shift. No obvious intracranial mass effect or hemorrhage. Worley-white matter interface is grossly normal. Skull and face: Calvarium and visualized facial bones are intact, without suspicious lesions. Sinuses: Visualized sinuses and mastoids are clear. IMPRESSION: Extensive patient motion artifact limits diagnostic quality of the study. Consider repeat imaging if suspect significant intracranial trauma. Reviewed by: Hayden Antunez MD on 09/26/2024 2:01 PM PDT Approved by: Hayden Antunez MD on 09/26/2024 2:01 PM PDT Station ID: [id number]
[2024-09-26] MEDS: POTASSIUM CHLOR 10 MEQ/100 ML 10 MEQ/100 ML BAG IV STA (14:06)
--- NOTE | 2024-09-26 14:11 | CT Report ---
PROCEDURE: CT Cervical Spine WO INDICATIONS: neck pain after fall TECHNIQUE: Noncontrast images acquired from the skull base to the T4 level. Sagittal and coronal reformats were then constructed. For radiation dose reduction, the following was used: automated exposure control, adjustment of mA and/or kV according to patient size. COMPARISON: None. FINDINGS: Image quality: Excellent. Bones: Significant patient motion artifact from the base of the occiput to involve the C3 vertebral body as well. Cannot exclude upper cervical fracture. No dislocations. Visualized superior ribs are intact. Soft tissues: Prevertebral soft tissues are normal in thickness. No paravertebral hematomas. No apical pneumothoraces. IMPRESSION: Significant patient motion artifact. Cannot exclude upper cervical fracture. No obvious fractures seen on the images provided. Reviewed by: Hayden Antunez MD on 09/26/2024 2:10 PM PDT Approved by: Hayden Antunez MD on 09/26/2024 2:10 PM PDT Station ID: [id number]
[2024-09-26 14:50] LABS: AMPHETAMINE SCREEN,URINE NEGATIVE (NEGATIVE); BARBITURATE SCREEN,UR NEGATIVE (NEGATIVE); BENZODIAZEPINES SCREEN, URINE NEGATIVE (NEGATIVE); BUPRENORPHINE SCREEN, URINE NEGATIVE (NEGATIVE); COCAINE SCREEN URINE NEGATIVE (NEGATIVE); METHADONE SCREEN, URINE NEGATIVE (NEGATIVE); METHAMPHETAMINES SCREEN, URINE NEGATIVE (NEGATIVE); OPIATE SCREEN, URINE NEGATIVE (NEGATIVE); THC CANNABINOID SCREEN, URINE NEGATIVE (NEGATIVE)
[2024-09-26] MEDS: TETANUS/DIPHTHERIA/PERTUSSIS 0.5 ML SYRINGE IM ONE (14:56)
--- NOTE | 2024-09-26 15:48 | CT Report ---
PROCEDURE: CT Cervical Spine WO INDICATIONS: neck pain, repeat after initial scan indeterminant TECHNIQUE: Noncontrast images acquired from the skull base to the T4 level. Sagittal and coronal reformats were then constructed. For radiation dose reduction, the following was used: automated exposure control, adjustment of mA and/or kV according to patient size. COMPARISON: Earlier on the same date which had significant upper cervical motion artifact.. FINDINGS: Image quality: Excellent. Bones: No fractures or dislocations. Cervical spondylosis. Findings included multilevel bilateral bony foraminal narrowing secondary to uncovertebral joint hypertrophy. Visualized superior ribs are intact. Soft tissues: Prevertebral soft tissues are normal in thickness. No paravertebral hematomas. No apical pneumothoraces. IMPRESSION: No acute, displaced fracture or traumatic subluxation. Cervical spondylosis with multilevel bony foraminal narrowing. Reviewed by: Hayden Antunez MD on 09/26/2024 3:46 PM PDT Approved by: Hayden Antunez MD on 09/26/2024 3:46 PM PDT Station ID: [id number]
--- NOTE | 2024-09-26 15:54 | HISTORY & PHYSICAL EXAMINATION ---
Chief Complaint Chief Complaint Chief Complaint: Ground-level fall History of Present Illness Admitted From Admitted From:: Home with History Obtained From History obtained from: Patient interview Exam Limitations: Patient is acutely withdrawing from alcohol History of Present Illness HPI Comment/Other: 48-year-old male history of alcohol abuse who presents to the ER after ground- level fall. His reported to the ED that he had not eaten or slept in 3 days, and had mostly been in bed. She suspects he has not had a drink in 3 days. Spouse reported multiple falls. 1 such fall was after he felt dizzy and hit his head against the dresser. He reports some back pain and right-sided abdominal pain. Denies fever, chills, chest pain, dyspnea, N/V/D In the ER, he was sent for CT head, C-spine, abdomen/pelvis. He had a seizure in the CT scanner lasting about a minute. Imaging was significant for cirrhosis, No traumatic changes. Lab work was significant for mild hyponatremia, hypokalemia, elevated LFTs, CK4 93. UA/UDS negative. Hospitalist was contacted for admission for alcohol withdrawal with alcohol withdrawal seizures/delirium tremens Meds/Allgy Home Medications Ambulatory Orders Medication Instructions Recorded Confirmed naltrexone 50 mg tablet 100 mg PO DAILY 02/03/2212/31 oxycodone 5 mg tablet 5 mg PO Q4HR PRN Pain #35 ta bs 02/18/22 prednisone 20 mg tablet 20 mg PO [id number] #21 tabs 09/18/23 gabapentin 800 mg tablet 800 mg PO TID 03/10/24 metoprolol succinate 50 mg See Rx Instructions .Route 03/10/24 tablet,extended release 24 hr .COMPLEX #28 tabs spironolactone 50 mg tablet 25 mg PO QDAY 03/10/24 tizanidine 2 mg tablet 2 mg PO BID PRN leg spasm duloxetine 60 mg capsule,delayed See Rx Instructions . Route 04/29/24 release .COMPLEX #28 caps losartan 100 mg tablet (Cozaar) 100 mg PO DAILY #90 ta bs 08/18/24 allopurinol 300 mg tablet See Rx Instructions .Route 0 08/24/24 09/26/24 .COMPLEX #90 tabs Allergies Allergies Allergy/AdvReac Type Severity Reaction Status Date / Time No Known Drug Allergies Allergy Verified 09/26/24 11:48 PFSH Active Problems All Active Problems (Updated 09/26/24 @ 17:19 by Moose Madrid DNP) Elevated LFTs (Acute) Electrolyte abnormality (Acute) Alcohol withdrawal seizure (Acute) Social History Social History (Updated 09/26/24 @ 14:31 by Marni Floyd PA-C) Smoking Status: Never smoker How many cigarettes a day do you smoke? (20 cigarettes=1 Pk): 6 Living arrangement: At home Living Condition: With spouse/s.o. Do you feel safe in your home environment?: Yes History of physical, verbal, emotional, or financial abuse?: No Are you sexually active?: Yes POLST Patient has POLST: No Review of Systems Status of ROS: unobtainable due to mental status Exam Exam Vital Signs: Vital Signs x48h Temp Pulse Pulse Resp BP BP Pulse Ox 09/26/24 17:00 128 H 24 140/100 H 95 09/26/24 16:25 36.9 C 87 17 142/83 H 98 09/26/24 15:56 90 14 127/108 H 96 09/26/24 14:00 125 H 17 158/106 H 92 09/26/24 12:17 96 22 143/105 H 93 09/26/24 11:44 36.7 C 86 19 137/96 H 95 Constitutional Disheveled, hyperactive male HENMT normocephalic Laceration on nose Eyes PERRL Chest inspection of chest normal Respiratory breath sounds equal bilaterally and normal respiratory effort Cardiovascular heart rate abnormal (tachycardic) and regular rhythm noted Gastrointestinal abdomen normal to inspection Upper abdomen tender to palpation Extremities normal to inspection Neurology GCS 15 Psychiatry oriented x3 Skin Scattered bruising, Laceration on nose Conclusion/Plan Problem List (1) Alcohol withdrawal seizure: Plan: ICU for CIWA protocol As needed IV Ativan 2 to 20 mg per protocol Librium 25 mg 4 times daily scheduled Banana bag x 1 Multivitamin, thiamine supplementation daily Seizure precautions He reports to me that he goes through 2 bottles of vodka every 2 weeks. I doubt this given his presentation LR at 100 (2) Electrolyte abnormality: Plan: Potassium 3.3, magnesium 1.2 upon admission lab work ICU electrolyte replacement protocol Banana bag had magnesium in it (3) Elevated LFTs: Plan: CT abdomen performed in the ER shows diffuse hepatic steatosis as well as cholelithiasis without cholecystitis CMP in a.m. IVF as above Plan Admit inpatient ICU Full code His is his surrogate decision maker Lab Results Lab results reviewed: Yes 09/26/24 12:24 09/26/24 12:24 Diagnostic Imaging Results Diagnostic Imaging Results: positive Final report reviewed Core Measures Anticipated LOS I expect patient to be DC'd or transferred within 96 hours.: Yes DVT/VTE - Prophylaxis VTE/DVT Prophylaxis med ordered at admit?: Yes
[2024-09-26] MEDS ORDERED: ONDANSETRON ODT 4 MG TABLET TL PRN (16:02)
[2024-09-26] MEDS: MULTIVITAMIN 10 ML, THIAMINE INJ 100 MG, MAGNESIUM SULFATE 2 GM, FOLIC ACID INJ 1 MG in... IV ONE (16:57)
[2024-09-26] MEDS: LORazepam 2 MG/ML VIAL IVP PRN (16:58)
[2024-09-26] MEDS: SODIUM CHLORIDE FLUSH 0.9% 10 ML SYRINGE IVP SCH (16:59)
[2024-09-26] MEDS: DEXMEDETOMIDINE 400 MCG/100 ML 100 ML IV PRN (19:03)
[2024-09-26 23:38] LABS: VBG PH 7.490 (7.31-7.41)
[2024-09-26] MEDS: POTASSIUM CHLOR 10 MEQ/100 ML 10 MEQ/100 ML BAG IV SCH (23:45)
[2024-09-27] MEDS: SODIUM CHLORIDE 0.9% 1,000 ML IV SCH (00:22)
[2024-09-27] MEDS: CALCIUM GLUC 1,000MG/50ML-NACL 1,000 MG/50 ML BAG IV ONE ×3 (00:35→17:39)
[2024-09-27 04:50] LABS: HCT - HEMATOCRIT 39.5 % (42.0-52.0); HGB - HEMOGLOBIN 13.1 g/dL (14.0-18.0); NRBC ABSOLUTE COUNT (AUTO) 0.00 x10^3/uL; NUCLEATED RED BLOOD CELLS AUTO 0.0 /100WBC; PLT - PLATELET COUNT 40 10^3/uL (130-450); RED CELL DISTRIBUTION WIDTH 12.6 % (12.0-15.0)
[2024-09-27 05:04] LABS: BUN - BLOOD UREA NITROGEN 5.0 mg/dL (6-20); CARBON DIOXIDE - CO2 27.0 mmol/L (21-32); CREATININE 0.9 mg/dL (0.6-1.3); GFR - MDRD 90.0 (>89)
[2024-09-27 05:37] LABS: PHOSPHORUS 1.1 mg/dL (2.5-5.0)
[2024-09-27] MEDS: SODIUM PHOSPHATE 21 MMOL in SODIUM CHLORIDE 0.9% 250 ML IV ONE (08:10)
[2024-09-27 08:19] LABS: VBG PH 7.463 (7.31-7.41)
[2024-09-27] MEDS: PRENATAL VITAMIN TABLET PO SCH (08:28)
[2024-09-27] MEDS: THIAMINE 100 MG TABLET PO SCH (08:28)
[2024-09-27] MEDS: ENOXAPARIN 40 MG/0.4 ML SYRINGE SUBQ SCH (09:16)
[2024-09-27] MEDS: POTASSIUM CHLORIDE 20 MEQ/15 ML UDC PO ONE (09:59)
--- NOTE | 2024-09-27 12:00 | PHARMACY PROGRESS NOTE ---
Best Possible Medication History Admit Date and Time: 09/26/24 1549 Home Medications Medication Instructions Recorded Confirmed Type allopurinol 300 mg tablet See Rx Instructions .Route 0 08/24/24 09/26/24 Rx .COMPLEX #90 tabs Processed by: Pharmacy Medications reviewed in ED?: Yes Medication History completed: Yes Patient Interview: Pt unable to participate Secondary Source(s): Insurance records [facility] Statement: As the person ultimately responsible for medication therapy, providers are able to order a medication from an existing home medication list in [facility] via the "Reconcile Routine" prior to Confirmation of that medication by technical support professional. Such practice is discouraged except when the physician, in their clinical judgment, deems that a medical need exists for a medication without regard to previous use.
--- NOTE | 2024-09-27 16:22 | PROVIDER PROGRESS NOTE ---
Subjective Prog Note Date Prog Note Date: 09/27/24 Subjective Subjective: Awake and able to interact, although confused. Thinks that he is at home. Is able to tell me that he lives w Naye, and that his family loves to have chickens and dogs as pets. Current Medications Current Medications Current Medications: Current Medications Generic Name Dose Route Start Last Admin Trade Name Freq PRN Reason Stop Dose Admin Acetaminophen 650 mg 09/26/24 16:02 Acetaminophen 325 Mg Tablet PO Q4HR PRN Pain 1 to 4, or Fever Chlordiazepoxide HCl 25 mg 09/26/24 18:00 09/27/24 13:02 Chlordiazepoxide 25 Mg Capsule PO 25 mg Q6HR SOPHIA Administration Enoxaparin Sodium 40 mg 09/27/24 09:00 09/27/24 09:16 Enoxaparin 40 Mg/0.4 Ml Syringe SUBQ Not Given On Hold: 09/27/24 10:42 DAILY SOPHIA Comment: plt under 50,000 Dexmedetomidine/Sodium Chloride 100 mls @ 3.7 mls/hr 09/26/24 18:50 09/27/24 10:30 Precedex Premix IV 0.4 mcg/kg/hr .Q27H2M PRN 7.4 mls/hr Agitation Titration Protocol 0.2 MCG/KG/HR Sodium Chloride 1,000 mls @ 150 mls/hr 09/26/24 23:45 09/27/24 08:46 Normal Saline 0.9% IV 150 mls/hr .Q6H40M SOPHIA Administration Lorazepam 2 - 20 mg 09/26/24 14:21 09/27/24 12:03 Lorazepam 2 Mg/Ml Vial IVP 4 mg Q15M PRN Administration RASS > 0 Protocol Ondansetron HCl 4 mg 09/26/24 13:26 Ondansetron 4 Mg/2 Ml Vial IVP PRN PRN Alcohol Withdrawal Ondansetron HCl 4 mg 09/26/24 16:02 Ondansetron Odt 4 Mg Tablet TL Q6HR PRN Nausea / Vomiting Ondansetron HCl 4 mg 09/26/24 16:02 Ondansetron 4 Mg/2 Ml Vial IVP Q6HR PRN Nausea / Vomiting Multivit/Folic Acid/Iron 1 tab 09/27/24 09:00 09/27/24 08:28 Vitamin Tablet PO 1 tab DAILY SOPHIA Administration Sodium Chloride 10 ml 09/26/24 17:00 09/27/24 08:34 Sodium Chloride Flush 0.9% 10 Ml Syringe IVP 10 ml 0100,0900,1700 SOPHIA Administration Sodium Chloride 10 ml 09/26/24 16:02 Sodium Chloride Flush 0.9% 10 Ml Syringe IVP PRN PRN NEEDED PER PROVIDER ORDERS Thiamine HCl 100 mg 09/27/24 09:00 09/27/24 08:28 Thiamine 100 Mg Tablet PO 100 mg DAILY SOPHIA Administration Objective Vital Signs/Intake & Output Vital Signs: Vital Signs x48h Temp Pulse Resp BP Pulse Ox O2 Flow Rate 09/27/24 15:00 65 19 109/80 93 2 09/27/24 14:00 67 22 97/76 94 2 09/27/24 13:00 83 21 122/88 94 2 09/27/24 12:00 36.4 C 117 H 27 H 124/81 94 09/27/24 11:00 121 H 37 H 126/83 95 09/27/24 10:00 103 H 15 105/73 97 09/27/24 09:00 106 H 13 95/73 94 Intake & Output: Intake & Output 09/24/24 09/25/24 09/26/24 09/27/24 23:59 23:59 23:59 23:59 Intake Total 1559 / 1559 2886.2 / 2886.2 Output Total 200 / 200 300 / 300 Balance 1359 / 1359 2586.2 / 2586.2 Weight (kg) 74 kg 76 kg Objective General Appearance: positive No acute distress and Other (poorly groomed, multiple abrasions on his face. ) Eyes Bilateral: positive Normal inspection and Conjunctivae nml ENT: positive ENT inspection nml Neck: positive Nml inspection Respiratory: positive No respiratory distress and Breath sounds nml Cardiovascular: positive Regular rate & rhythm Abdomen: positive No distention Skin: positive Color nml and No rash Extremities: positive Non-tender and No pedal edema Neurologic/Psychiatric: positive Disoriented to place and Disoriented to time Lab Results 09/27/24 04:40 09/27/24 16:07 Other Labs: Lab Results x24hrs 09/27/24 09/27/24 09/26/24 Range/Units 08:04 04:40 23:05 WBC 4.7 L (4.8-10.8) x10^3/uL RBC 3.61 L (4.70-6.10) 10^6/uL Hgb 13.1 L (14.0-18.0) g/dL Hct 39.5 L (42.0-52.0) % MCV 109.4 H (80.0-94.0) fL MCH 36.3 H (27.0-31.0) pg MCHC 33.2 (32.0-36.0) g/dL RDW 12.6 (12.0-15.0) % Plt Count 40 L (130-450) 10^3/uL Neut # (Auto) 3.1 (1.5-6.6) 10^3/uL Lymph # (Auto) 1.1 L (1.5-3.5) 10^3/uL [place] # (Auto) 0.5 (0.0-1.0) 10^3/uL Eos # (Auto) 0.0 (0.0-0.7) 10^3/uL Baso # (Auto) 0.0 (0.0-0.1) 10^3/uL Absolute Nucleated RBC 0.00 x10^3/uL Nucleated RBC % 0.0 /100WBC VBG pH 7.463 H 7.490 H (7.31-7.41) Ionized Calcium 1.07 L 1.07 L (1.09-1.30) mmol/L Sodium 135 (135-145) mmol/L Potassium 3.8 4.4 2.9 L (3.5-4.5) mmol/L Chloride 99 L (101-111) mmol/L Carbon Dioxide 27 (21-32) mmol/L Anion Gap 9.0 (6-13) BUN 5 L (6-20) mg/dL Creatinine 0.9 (0.6-1.3) mg/dL Estimated GFR (MDRD) 90 (>89) Glucose 104 (74-104) mg/dL Calcium 8.7 (8.5-10.3) mg/dL Phosphorus 1.1 L (2.5-5.0) mg/dL Magnesium 2.1 2.2 (1.7-2.3) mg/dL Nasal Screen MRSA (PCR) (NEGATIVE) 09/26/24 Range/Units 16:15 WBC (4.8-10.8) x10^3/uL RBC (4.70-6.10) 10^6/uL Hgb (14.0-18.0) g/dL Hct (42.0-52.0) % MCV (80.0-94.0) fL MCH (27.0-31.0) pg MCHC (32.0-36.0) g/dL RDW (12.0-15.0) % Plt Count (130-450) 10^3/uL Neut # (Auto) (1.5-6.6) 10^3/uL Lymph # (Auto) (1.5-3.5) 10^3/uL [place] # (Auto) (0.0-1.0) 10^3/uL Eos # (Auto) (0.0-0.7) 10^3/uL Baso # (Auto) (0.0-0.1) 10^3/uL Absolute Nucleated RBC x10^3/uL Nucleated RBC % /100WBC VBG pH (7.31-7.41) Ionized Calcium (1.09-1.30) mmol/L Sodium (135-145) mmol/L Potassium (3.5-4.5) mmol/L Chloride (101-111) mmol/L Carbon Dioxide (21-32) mmol/L Anion Gap (6-13) BUN (6-20) mg/dL Creatinine (0.6-1.3) mg/dL Estimated GFR (MDRD) (>89) Glucose (74-104) mg/dL Calcium (8.5-10.3) mg/dL Phosphorus (2.5-5.0) mg/dL Magnesium (1.7-2.3) mg/dL Nasal Screen MRSA (PCR) NEGATIVE (NEGATIVE) Assessment/Plan Problem List (1) Alcohol withdrawal seizure: Impression: He is in the ICU on a precedex drip and doing well with this. He is also needing ativan at about 4mg per dose IV. he is disoriented, but not tremulous and is calm in bed. social economist does report some hallucinations. He is also on scheduled librium, and I will leave him on this, 25mg QID. he is receiving MVI and thiamine as well. He is eating 25-50% of his meals. (2) Electrolyte abnormality: Impression: hypomagnesemia and hypokalemia on admit. he is on electolyte protocol in the ICU. K is now 3.5, phos is normal, mag is now normal. I am cutting down his IVF to 100cc per hour, plus what he will be getting with precedex gtt. (3) Elevated LFTs: Impression: Laboratory Tests 09/26/24 12:24 Total Bilirubin 1.6 H AST 259 H ALT 103 H Alkaline Phosphatase 73 Likely related to alcohol use. There is hepatic steatosis seen on CT as well as cholelithiasis. His alkaline phosphatase is within normal limits. His bilirubin is mildly elevated at 1.6. He has not had repeat LFTs since admission. I will add these onto a.m. labs although I do not expect his transaminitis to be significantly different. If bilirubin is continuing to rise I will get a right upper quadrant ultrasound to evaluate size of the common bile duct. This patient's diagnosis and treatment plan was discussed this AM with attending physician as a part of multi disciplinary rounding meeting. I have spent 40 minutes in the care of this patient today. This includes time [id number], review and ordering of diagnostic imaging and laboratory studies . Monitoring the patient's signs symptoms, evaluation of medication effectiveness and patient's response to treatment.
[2024-09-27 16:29] LABS: VBG PH 7.495 (7.31-7.41)
[2024-09-27 16:39] LABS: PHOSPHORUS 2.6 mg/dL (2.5-5.0)
[2024-09-27] MEDS: POTASSIUM CHLORIDE 20 MEQ/15 ML UDC PO SCH (17:38)
[2024-09-27] MEDS: POTASSIUM CHLOR 10 MEQ/100 ML 10 MEQ/100 ML BAG IV SCH (21:07)
[2024-09-28 04:57] LABS: HCT - HEMATOCRIT 40.2 % (42.0-52.0); HGB - HEMOGLOBIN 12.9 g/dL (14.0-18.0); NRBC ABSOLUTE COUNT (AUTO) 0.00 x10^3/uL; NUCLEATED RED BLOOD CELLS AUTO 0.0 /100WBC; RED CELL DISTRIBUTION WIDTH 12.8 % (12.0-15.0)
[2024-09-28 05:01] LABS: PLT - PLATELET COUNT 29 10^3/uL (130-450); SLIDE REVIEW? Indicated
[2024-09-28 05:04] LABS: VBG PH 7.437 (7.31-7.41)
[2024-09-28 05:05] LABS: ALT ALANINE AMINOTRANSFERASE 67.0 IU/L (10-60); AST ASPARTATE AMINOTRANSFERASE 133.0 IU/L (10-42); BUN - BLOOD UREA NITROGEN 4.0 mg/dL (6-20); CARBON DIOXIDE - CO2 24.0 mmol/L (21-32); CREATININE 0.7 mg/dL (0.6-1.3); GFR - MDRD 120.0 (>89); PHOSPHORUS 2.2 mg/dL (2.5-5.0)
[2024-09-28 05:16] LABS: PLATELET ESTIMATE, MANUAL DECREASED (<130,000) (NORMAL); PLATELET MORPHOLOGY 1+ GIANT PLATELETS (NORMAL); RBC MORPHOLOGY (MULTIPLE) 2+ MACROCYTOSIS (NORMAL)
[2024-09-28] MEDS: CALCIUM GLUC 1,000MG/50ML-NACL 1,000 MG/50 ML BAG IV ONE (05:43)
[2024-09-28] MEDS: LACTATED RINGERS 1,000 ML IV SCH (07:47)
[2024-09-28] MEDS: POTASSIUM PHOSPHATE 15 MMOL in SODIUM CHLORIDE 0.9% 250 ML IV ONE (07:58)
[2024-09-28 17:14] LABS: VBG PH 7.399 (7.31-7.41)
--- NOTE | 2024-09-28 17:52 | PROVIDER PROGRESS NOTE ---
Subjective Prog Note Date Prog Note Date: 09/28/24 Subjective Subjective: He is a little sleepy, no hallucinations today. he required 20mg of ativan on date night sitter. he expresses the desire to stop using alcohol. he understands that he is in the hospital for withdrawal right now. He has been able to take food and liquids by mouth today. Current Medications Current Medications Current Medications: Current Medications Generic Name Dose Route Start Last Admin Trade Name Freq PRN Reason Stop Dose Admin Acetaminophen 650 mg 09/26/24 16:02 Acetaminophen 325 Mg Tablet PO Q4HR PRN Pain 1 to 4, or Fever Chlordiazepoxide HCl 25 mg 09/26/24 18:00 09/28/24 12:35 Chlordiazepoxide 25 Mg Capsule PO 25 mg Q6HR SOPHIA Administration Enoxaparin Sodium 40 mg 09/27/24 09:00 09/27/24 09:16 Enoxaparin 40 Mg/0.4 Ml Syringe SUBQ Not Given On Hold: 09/27/24 10:42 DAILY SOPHIA Comment: plt under 50,000 Dexmedetomidine/Sodium Chloride 100 mls @ 3.7 mls/hr 09/26/24 18:50 09/28/24 14:50 Precedex Premix IV 0 mcg/kg/hr .Q27H2M PRN 0 mls/hr Agitation Titration Protocol 0.2 MCG/KG/HR Lorazepam 2 - 20 mg 09/26/24 14:21 09/28/24 05:50 Lorazepam 2 Mg/Ml Vial IVP 4 mg Q15M PRN Administration RASS > 0 Protocol Ondansetron HCl 4 mg 09/26/24 16:02 Ondansetron Odt 4 Mg Tablet TL Q6HR PRN Nausea / Vomiting Ondansetron HCl 4 mg 09/26/24 16:02 Ondansetron 4 Mg/2 Ml Vial IVP Q6HR PRN Nausea / Vomiting Multivit/Folic Acid/Iron 1 tab 09/27/24 09:00 09/28/24 09:00 Vitamin Tablet PO 1 tab DAILY SOPHIA Administration Sodium Chloride 10 ml 09/26/24 17:00 09/28/24 16:28 Sodium Chloride Flush 0.9% 10 Ml Syringe IVP 10 ml 0100,0900,1700 SOPHIA Administration Sodium Chloride 10 ml 09/26/24 16:02 Sodium Chloride Flush 0.9% 10 Ml Syringe IVP PRN PRN NEEDED PER PROVIDER ORDERS Thiamine HCl 100 mg 09/27/24 09:00 09/28/24 09:00 Thiamine 100 Mg Tablet PO 100 mg DAILY SOPHIA Administration Objective Vital Signs/Intake & Output Reviewed Vital Signs: Yes Vital Signs: Vital Signs x48h Temp Pulse Resp BP Pulse Ox O2 Flow Rate 09/28/24 17:00 81 28 H 115/85 96 09/28/24 16:00 36.7 C 77 35 H 128/85 94 09/28/24 15:00 85 20 140/79 H 94 09/28/24 14:00 71 29 H 97/74 95 2 09/28/24 13:00 74 25 H 119/88 98 2 09/28/24 12:00 37.0 C 70 21 141/88 H 97 2 09/28/24 11:00 72 27 H 139/102 H 96 2 09/28/24 10:00 62 23 132/90 H 97 2 Intake & Output: Intake & Output 09/25/24 09/26/24 09/27/24 09/28/24 23:59 23:59 23:59 23:59 Intake Total 1559 / 1559 5157.2 / 5157.2 2050 / 2050 Output Total 200 / 200 400 / 400 875 / 875 Balance 1359 / 1359 4757.2 / 4757.2 1176 / 1176 Weight (kg) 74 kg 76 kg 79 kg Objective General Appearance: positive No acute distress and Other (poorly groomed, multiple abrasions on his face. ) Eyes Bilateral: positive Normal inspection and Conjunctivae nml ENT: positive ENT inspection nml Neck: positive Nml inspection Respiratory: positive No respiratory distress and Breath sounds nml Cardiovascular: positive Regular rate & rhythm Abdomen: positive No distention Skin: positive Color nml and No rash Extremities: positive Non-tender and No pedal edema Neurologic/Psychiatric: positive Oriented x3 Lab Results 09/28/24 04:38 09/28/24 04:38 Other Labs: Lab Results x24hrs 09/28/24 09/28/24 Range/Units 17:04 04:38 WBC 3.9 L (4.8-10.8) x10^3/uL RBC 3.54 L (4.70-6.10) 10^6/uL Hgb 12.9 L (14.0-18.0) g/dL Hct 40.2 L (42.0-52.0) % MCV 113.6 H (80.0-94.0) fL MCH 36.4 H (27.0-31.0) pg MCHC 32.1 (32.0-36.0) g/dL RDW 12.8 (12.0-15.0) % Plt Count 29 L* (130-450) 10^3/uL Neut # (Auto) 2.5 (1.5-6.6) 10^3/uL Lymph # (Auto) 1.0 L (1.5-3.5) 10^3/uL [place] # (Auto) 0.3 (0.0-1.0) 10^3/uL Eos # (Auto) 0.1 (0.0-0.7) 10^3/uL Baso # (Auto) 0.0 (0.0-0.1) 10^3/uL Absolute Nucleated RBC 0.00 x10^3/uL Nucleated RBC % 0.0 /100WBC Manual Slide Review Indicated Platelet Estimate DECREASED (<130,000) (NORMAL) Platelet Morphology 1+ GIANT PLATELETS (NORMAL) RBC Morph Micro Appear 2+ MACROCYTOSIS (NORMAL) VBG pH 7.399 7.437 H (7.31-7.41) Ionized Calcium 1.14 1.05 L (1.09-1.30) mmol/L Sodium 136 (135-145) mmol/L Potassium 4.0 (3.5-4.5) mmol/L Chloride 106 (101-111) mmol/L Carbon Dioxide 24 (21-32) mmol/L Anion Gap 6.0 (6-13) BUN 4 L (6-20) mg/dL Creatinine 0.7 (0.6-1.3) mg/dL Estimated GFR (MDRD) 120 (>89) Glucose 92 (74-104) mg/dL Calcium 8.3 L (8.5-10.3) mg/dL Phosphorus 2.4 L 2.2 L (2.5-5.0) mg/dL Magnesium 1.9 (1.7-2.3) mg/dL Total Bilirubin 1.3 H (0.2-1.0) mg/dL AST 133 H (10-42) IU/L ALT 67 H (10-60) IU/L Alkaline Phosphatase 66 (42-121) IU/L Total Protein 6.3 L (6.4-8.9) g/dL Albumin 3.7 (3.2-5.5) g/dL Globulin 2.6 (2.1-4.2) g/dL Albumin/Globulin Ratio 1.4 (1.0-2.2) Assessment/Plan Problem List (1) Alcohol withdrawal seizure: Impression: He is in the ICU on a precedex drip and doing well with this. Weaning down on precedex, to 0.4 at mid day and stable with his symptoms. Expresses the desire to stop using alcohol. He is also on scheduled librium, and I will leave him on this, 25mg QID. he is receiving MVI and thiamine as well. He is eating 25- 75% of his meals. (2) Electrolyte abnormality: Impression: discontinuing IVF this evening. continuing on ICU electrolyte protocol, Phosphorus is low today, being repleted per protocol. . (3) Elevated LFTs: Impression: 09/28/24 04:38 Total Bilirubin 1.3 H AST 133 H ALT 67 H Alkaline Phosphatase 66 09/26/24 12:24 Total Bilirubin 1.6 H AST 259 H ALT 103 H Alkaline Phosphatase 73 Likely related to alcohol use. There is hepatic steatosis seen on CT as well as cholelithiasis. His alkaline phosphatase is within normal limits. Bilirubin is trending down. (4) Thrombocytopenia: Impression: This is new compared to labs historically. We are holding chemical DVT prophylaxis. He has hepatic steatosis on imaging. Will check INR on AM labs. will continue to monitor platelets. No acitve bleeding 09/26/24 09/27/24 09/28/24 12:24 04:40 04:38 Plt Count 55 L 40 L 29 L* This patient's diagnosis and treatment plan was discussed this AM with attending physician as a part of multi disciplinary rounding meeting. I have spent 36 minutes in the care of this patient today. This includes time [id number], review and ordering of diagnostic imaging and laboratory studies . Monitoring the patient's signs symptoms, evaluation of medication effectiveness and patient's response to treatment.
[2024-09-28] MEDS: NEUTRA-PHOS 250 MG TABLET PO SCH (20:40)
[2024-09-28] MEDS: NICOTINE 21 MG PATCH TOP SCH (22:38)
[2024-09-29 03:39] LABS: HCT - HEMATOCRIT 42.6 % (42.0-52.0); HGB - HEMOGLOBIN 14.2 g/dL (14.0-18.0); NRBC ABSOLUTE COUNT (AUTO) 0.00 x10^3/uL; NUCLEATED RED BLOOD CELLS AUTO 0.0 /100WBC; PLT - PLATELET COUNT 44 10^3/uL (130-450); RED CELL DISTRIBUTION WIDTH 13.1 % (12.0-15.0)
[2024-09-29 03:43] LABS: INR 1.1 (0.8-1.2); PT - PROTHROMBIN TIME 11.9 secs (9.9-12.6)
[2024-09-29] MEDS: SODIUM CHLORIDE FLUSH 0.9% 10 ML SYRINGE IVP PRN (03:45)
[2024-09-29 03:53] LABS: BUN - BLOOD UREA NITROGEN 6.0 mg/dL (6-20); CARBON DIOXIDE - CO2 28.0 mmol/L (21-32); CREATININE 0.9 mg/dL (0.6-1.3); GFR - MDRD 90.0 (>89)
[2024-09-29 04:07] LABS: VBG PH 7.435 (7.31-7.41)
[2024-09-29] MEDS: POTASSIUM CHLOR 10 MEQ/100 ML 10 MEQ/100 ML BAG IV SCH (04:15)
[2024-09-29 04:22] LABS: PHOSPHORUS 3.0 mg/dL (2.5-5.0)
[2024-09-29] MEDS: MAGNESIUM SULFATE 2 GRAM 2 GM/50 ML BAG IV ONE (04:43)
[2024-09-29] MEDS: POTASSIUM CHLORIDE 20 MEQ TABLET PO ONE (11:55)
--- NOTE | 2024-09-29 16:46 | PROVIDER PROGRESS NOTE ---
Subjective Prog Note Date Prog Note Date: 09/29/24 Subjective Pt reports feeling: Improved Subjective: Sitting up eating lunch. Still mildly confused (starts to bite at one the dressings on his forearm), but his sense of humor has returned. He is eating a cheeseburger, fries and a cupcake today. He tells me "I am eating healthy" Current Medications Current Medications Current Medications: Current Medications Generic Name Dose Route Start Last Admin Trade Name Freq PRN Reason Stop Dose Admin Acetaminophen 650 mg 09/26/24 16:02 Acetaminophen 325 Mg Tablet PO Q4HR PRN Pain 1 to 4, or Fever Chlordiazepoxide HCl 25 mg 09/26/24 18:00 09/29/24 11:55 Chlordiazepoxide 25 Mg Capsule PO 25 mg Q6HR SOPHIA Administration Enoxaparin Sodium 40 mg 09/27/24 09:00 09/27/24 09:16 Enoxaparin 40 Mg/0.4 Ml Syringe SUBQ Not Given On Hold: 09/27/24 10:42 DAILY SOPHIA Comment: plt under 50,000 Hydroxyzine Pamoate 25 mg 09/28/24 22:22 09/28/24 22:30 Hydroxyzine Pamoate 25 Mg Capsule PO 25 mg QPM PRN Administration Insomnia Dexmedetomidine/Sodium Chloride 100 mls @ 3.7 mls/hr 09/26/24 18:50 09/28/24 14:50 Precedex Premix IV 0 mcg/kg/hr .Q27H2M PRN 0 mls/hr Agitation Titration Protocol 0.2 MCG/KG/HR Lorazepam 2 - 20 mg 09/26/24 14:21 09/29/24 16:31 Lorazepam 2 Mg/Ml Vial IVP 10 mg Q15M PRN Administration RASS > 0 Protocol Nicotine 1 patch 09/28/24 22:30 09/29/24 08:11 Nicotine 21 Mg Patch TOP 1 patch DAILY SOPHIA Administration Ondansetron HCl 4 mg 09/26/24 16:02 Ondansetron Odt 4 Mg Tablet TL Q6HR PRN Nausea / Vomiting Ondansetron HCl 4 mg 09/26/24 16:02 Ondansetron 4 Mg/2 Ml Vial IVP Q6HR PRN Nausea / Vomiting Multivit/Folic Acid/Iron 1 tab 09/27/24 09:00 09/29/24 08:11 Vitamin Tablet PO 1 tab DAILY SOPHIA Administration Sodium Chloride 10 ml 09/26/24 17:00 09/29/24 16:31 Sodium Chloride Flush 0.9% 10 Ml Syringe IVP 10 ml 0100,0900,1700 SOPHIA Administration Sodium Chloride 10 ml 09/26/24 16:02 09/29/24 03:45 Sodium Chloride Flush 0.9% 10 Ml Syringe IVP 10 ml PRN PRN Administration NEEDED PER PROVIDER ORDERS Thiamine HCl 100 mg 09/27/24 09:00 09/29/24 08:11 Thiamine 100 Mg Tablet PO 100 mg DAILY SOPHIA Administration Objective Vital Signs/Intake & Output Reviewed Vital Signs: Yes Vital Signs: Vital Signs x48h Temp Pulse Resp BP Pulse Ox 09/29/24 16:00 37.2 C 90 18 144/99 H 97 09/29/24 15:00 102 H 28 H 153/101 H 97 09/29/24 14:00 112 H 29 H 151/103 H 90 L 09/29/24 13:00 121 H 22 127/91 H 90 L 09/29/24 12:00 37.1 C 120 H 31 H 134/93 H 94 09/29/24 11:00 101 H 20 133/92 H 98 09/29/24 10:00 107 H 20 126/96 H 95 09/29/24 09:00 129 H 21 124/95 H 94 Intake & Output: Intake & Output 09/26/24 09/27/24 09/28/24 09/29/24 23:59 23:59 23:59 23:59 Intake Total 1559 / 1559 5157.2 / 5157.2 2654 / 2654 1460 / 1460 Output Total 200 / 200 400 / 400 1775 / 1775 2400 / 2400 Balance 1359 / 1359 4757.2 / 4757.2 879 / 879 -940 / -940 Weight (kg) 74 kg 76 kg 79 kg 80.5 kg Objective General Appearance: positive No acute distress and Other (poorly groomed, multiple abrasions on his face. ) Eyes Bilateral: positive Normal inspection and Conjunctivae nml ENT: positive ENT inspection nml Neck: positive Nml inspection Respiratory: positive No respiratory distress and Breath sounds nml Cardiovascular: positive Regular rate & rhythm Abdomen: positive No distention Skin: positive Color nml and No rash Extremities: positive Non-tender and No pedal edema Neurologic/Psychiatric: positive Oriented x3 Lab Results 09/29/24 03:28 09/29/24 10:31 Other Labs: Lab Results x24hrs 09/29/24 09/29/24 09/28/24 Range/Units 10:31 03:28 17:04 WBC 4.5 L (4.8-10.8) x10^3/uL RBC 3.90 L (4.70-6.10) 10^6/uL Hgb 14.2 (14.0-18.0) g/dL Hct 42.6 (42.0-52.0) % MCV 109.2 H (80.0-94.0) fL MCH 36.4 H (27.0-31.0) pg MCHC 33.3 (32.0-36.0) g/dL RDW 13.1 (12.0-15.0) % Plt Count 44 L (130-450) 10^3/uL Neut # (Auto) 2.5 (1.5-6.6) 10^3/uL Lymph # (Auto) 1.4 L (1.5-3.5) 10^3/uL [place] # (Auto) 0.5 (0.0-1.0) 10^3/uL Eos # (Auto) 0.0 (0.0-0.7) 10^3/uL Baso # (Auto) 0.0 (0.0-0.1) 10^3/uL Absolute Nucleated RBC 0.00 x10^3/uL Nucleated RBC % 0.0 /100WBC PT 11.9 (9.9-12.6) secs INR 1.1 (0.8-1.2) VBG pH 7.435 H 7.399 (7.31-7.41) Ionized Calcium 1.12 1.14 (1.09-1.30) mmol/L Sodium 136 (135-145) mmol/L Potassium 3.6 3.4 L (3.5-4.5) mmol/L Chloride 99 L (101-111) mmol/L Carbon Dioxide 28 (21-32) mmol/L Anion Gap 9.0 (6-13) BUN 6 (6-20) mg/dL Creatinine 0.9 (0.6-1.3) mg/dL Estimated GFR (MDRD) 90 (>89) Glucose 82 (74-104) mg/dL Calcium 9.1 (8.5-10.3) mg/dL Phosphorus 3.0 2.4 L (2.5-5.0) mg/dL Magnesium 2.3 1.6 L (1.7-2.3) mg/dL Assessment/Plan Problem List (1) Alcohol withdrawal seizure: Impression: Today, he is off precedex . He is on scheduled librium, 25mg QID. Has gotten 58mg of IV ATvian in the last 24 hours with slight escalation of doses since precedex wean, which is appropriate. Still requires ICU level of care due to these high benzo doses. he is receiving MVI and thiamine as well. He is eating 75-100% of his meals. This evening at about 1800 acutely more confused with some combative behavior with RNs. not oriented. I am restarting his precedex, and will increase his librium to 50mg per dose from 25mg per dose. He will continue on symptom triggered dosing for ativan (2) Electrolyte abnormality: Impression: discontinuing IVF this evening. continuing on ICU electrolyte protocol,potassium and magnesium repleted today per protocol. (3) Elevated LFTs: Impression: 09/28/24 04:38 Total Bilirubin 1.3 H AST 133 H ALT 67 H Alkaline Phosphatase 66 09/26/24 12:24 Total Bilirubin 1.6 H AST 259 H ALT 103 H Alkaline Phosphatase 73 Likely related to alcohol use. There is hepatic steatosis seen on CT as well as cholelithiasis. His alkaline phosphatase is within normal limits. Bilirubin is trending down. did not repeat today. Will trend again tomorrow. (4) Thrombocytopenia: Impression: This is new compared to labs historically. We are holding chemical DVT prophylaxis. He has hepatic steatosis on imaging. INR is 1.1 today, will continue to monitor platelets. No active bleeding 09/26/24 09/27/24 09/28/24 12:24 04:40 04:38 Plt Count 55 L 40 L 29 L* 09/29/24 03:28 Plt Count 44 L This patient's diagnosis and treatment plan was discussed this AM with attending physician as a part of multi disciplinary rounding meeting. I have spent 51 minutes in the care of this patient today. This includes time [id number], review and ordering of diagnostic imaging and laboratory studies . Monitoring the patient's signs symptoms, evaluation of medication effectiveness and patient's response to treatment.
[2024-09-30] MEDS: ACETAMINOPHEN 325 MG TABLET PO PRN (02:31)
[2024-09-30 04:46] LABS: HCT - HEMATOCRIT 40.5 % (42.0-52.0); HGB - HEMOGLOBIN 13.5 g/dL (14.0-18.0); MEAN PLATELET VOLUME 14.0 fL (7.4-11.4); NRBC ABSOLUTE COUNT (AUTO) 0.00 x10^3/uL; NUCLEATED RED BLOOD CELLS AUTO 0.0 /100WBC; PLT - PLATELET COUNT 63 10^3/uL (130-450); RED CELL DISTRIBUTION WIDTH 13.2 % (12.0-15.0)
[2024-09-30 04:53] LABS: VBG PH 7.424 (7.31-7.41)
[2024-09-30 05:05] LABS: ALT ALANINE AMINOTRANSFERASE 68.0 IU/L (10-60); AST ASPARTATE AMINOTRANSFERASE 113.0 IU/L (10-42); BUN - BLOOD UREA NITROGEN 7.0 mg/dL (6-20); CARBON DIOXIDE - CO2 31.0 mmol/L (21-32); CREATININE 0.8 mg/dL (0.6-1.3); GFR - MDRD 103.0 (>89)
[2024-09-30 05:06] LABS: PHOSPHORUS 3.4 mg/dL (2.5-5.0)
--- NOTE | 2024-09-30 14:55 | PROVIDER PROGRESS NOTE ---
Subjective Prog Note Date Prog Note Date: 09/30/24 Subjective Subjective: He is awake and alert this afternoon. wants a work note, but does not seem to understand that the note needs to have dates. 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 He needs time to recover and wants to go back to work on 10/13. While I think this is very reasonable, he wants a work excuse for illness without dates. I have left a voice message with his to get in touch with me regarding this, and she also has information about upcoming primary care appt that the patient does not know exactly who it is with. Current Medications Current Medications Current Medications: Current Medications Generic Name Dose Route Start Last Admin Trade Name Freq PRN Reason Stop Dose Admin Acetaminophen 650 mg 09/26/24 16:02 09/30/24 11:51 Acetaminophen 325 Mg Tablet PO 650 mg Q4HR PRN Administration Pain 1 to 4, or Fever Chlordiazepoxide HCl 50 mg 09/29/24 18:00 09/30/24 11:51 Chlordiazepoxide 25 Mg Capsule PO 50 mg Q6HR SOPHIA Administration Enoxaparin Sodium 40 mg 09/27/24 09:00 09/27/24 09:16 Enoxaparin 40 Mg/0.4 Ml Syringe SUBQ Not Given On Hold: 09/27/24 10:42 DAILY SOPHIA Comment: plt under 50,000 Hydroxyzine Pamoate 25 mg 09/28/24 22:22 09/30/24 02:31 Hydroxyzine Pamoate 25 Mg Capsule PO 25 mg QPM PRN Administration Insomnia Dexmedetomidine/Sodium Chloride 100 mls @ 3.7 mls/hr 09/26/24 18:50 09/30/24 02:32 Precedex Premix IV 0 mcg/kg/hr .Q27H2M PRN 0 mls/hr Agitation Titration Protocol 0.2 MCG/KG/HR Lorazepam 2 - 20 mg 09/26/24 14:21 09/29/24 23:07 Lorazepam 2 Mg/Ml Vial IVP 6 mg Q15M PRN Administration RASS > 0 Protocol Nicotine 1 patch 09/28/24 22:30 09/30/24 08:08 Nicotine 21 Mg Patch TOP 1 patch DAILY SOPHIA Administration Ondansetron HCl 4 mg 09/26/24 16:02 Ondansetron Odt 4 Mg Tablet TL Q6HR PRN Nausea / Vomiting Ondansetron HCl 4 mg 09/26/24 16:02 Ondansetron 4 Mg/2 Ml Vial IVP Q6HR PRN Nausea / Vomiting Multivit/Folic Acid/Iron 1 tab 09/27/24 09:00 09/30/24 08:08 Vitamin Tablet PO 1 tab DAILY SOPHIA Administration Sodium Chloride 10 ml 09/26/24 17:00 09/30/24 08:08 Sodium Chloride Flush 0.9% 10 Ml Syringe IVP 10 ml 0100,0900,1700 SOPHIA Administration Sodium Chloride 10 ml 09/26/24 16:02 09/29/24 03:45 Sodium Chloride Flush 0.9% 10 Ml Syringe IVP 10 ml PRN PRN Administration NEEDED PER PROVIDER ORDERS Thiamine HCl 100 mg 09/27/24 09:00 09/30/24 08:08 Thiamine 100 Mg Tablet PO 100 mg DAILY SOPHIA Administration Objective Vital Signs/Intake & Output Reviewed Vital Signs: Yes Vital Signs: Vital Signs x48h Temp Pulse Resp BP Pulse Ox 09/30/24 14:48 90 18 119/88 94 09/30/24 14:00 77 18 136/112 H 95 09/30/24 13:00 89 22 111/78 97 09/30/24 12:00 36.8 C 99 23 119/95 H 95 09/30/24 11:00 88 19 123/88 98 09/30/24 10:00 85 22 129/92 H 95 09/30/24 09:00 63 18 100/74 96 09/30/24 08:00 36.5 C 101 H 20 129/92 H 95 09/30/24 07:00 59 L 20 117/78 97 Intake & Output: Intake & Output 09/27/24 09/28/24 09/29/24 09/30/24 23:59 23:59 23:59 23:59 Intake Total 5157.2 / 5157.2 2654 / 2654 1521 / 1521 860 / 860 Output Total 400 / 400 1775 / 1775 2400 / 2400 526 / 526 Balance 4757.2 / 4757.2 879 / 879 -879 / -879 334 / 334 Weight (kg) 76 kg 79 kg 80.5 kg 81 kg Objective General Appearance: positive No acute distress and Other ( multiple abrasions on his face. ) Eyes Bilateral: positive Normal inspection and Conjunctivae nml ENT: positive ENT inspection nml Neck: positive Nml inspection Respiratory: positive No respiratory distress and Breath sounds nml Cardiovascular: positive Regular rate & rhythm Abdomen: positive No distention Skin: positive Color nml and No rash Extremities: positive Non-tender and No pedal edema Neurologic/Psychiatric: positive Oriented x3 Lab Results 09/30/24 15:05 09/30/24 15:05 Other Labs: Lab Results x24hrs 09/30/24 09/29/24 Range/Units 04:37 03:28 WBC 3.1 L (4.8-10.8) x10^3/uL RBC 3.70 L (4.70-6.10) 10^6/uL Hgb 13.5 L (14.0-18.0) g/dL Hct 40.5 L (42.0-52.0) % MCV 109.5 H (80.0-94.0) fL MCH 36.5 H (27.0-31.0) pg MCHC 33.3 (32.0-36.0) g/dL RDW 13.2 (12.0-15.0) % Plt Count 63 L (130-450) 10^3/uL MPV 14.0 H (7.4-11.4) fL Neut # (Auto) 1.4 L (1.5-6.6) 10^3/uL Lymph # (Auto) 1.1 L (1.5-3.5) 10^3/uL Tama # (Auto) 0.6 (0.0-1.0) 10^3/uL Eos # (Auto) 0.1 (0.0-0.7) 10^3/uL Baso # (Auto) 0.0 (0.0-0.1) 10^3/uL Absolute Nucleated RBC 0.00 x10^3/uL Nucleated RBC % 0.0 /100WBC VBG pH 7.424 H (7.31-7.41) Ionized Calcium 1.15 (1.09-1.30) mmol/L Sodium 138 (135-145) mmol/L Potassium 4.2 (3.5-4.5) mmol/L Chloride 103 (101-111) mmol/L Carbon Dioxide 31 (21-32) mmol/L Anion Gap 4.0 L (6-13) BUN 7 (6-20) mg/dL Creatinine 0.8 (0.6-1.3) mg/dL Estimated GFR (MDRD) 103 (>89) Glucose 90 (74-104) mg/dL Calcium 9.2 (8.5-10.3) mg/dL Phosphorus 3.4 (2.5-5.0) mg/dL Magnesium 2.0 (1.7-2.3) mg/dL Total Bilirubin 0.8 (0.2-1.0) mg/dL AST 113 H (10-42) IU/L ALT 68 H (10-60) IU/L Alkaline Phosphatase 73 (42-121) IU/L Total Protein 6.7 (6.4-8.9) g/dL Albumin 3.8 (3.2-5.5) g/dL Globulin 2.9 (2.1-4.2) g/dL Albumin/Globulin Ratio 1.3 (1.0-2.2) Vitamin B12 401 (180-914) pg/mL Folate 13.6 (5.90 - >24.8) ng/mL Assessment/Plan Problem List (1) Alcohol withdrawal seizure: Impression: last ativan at midnight. he is off precedex. he remains on librium. I will start to taper this tomorrow. Vistaril has been a useful adjunt for his anxiety. he is receiving MVI and thiamine as well. He is eating 75-100% of his meals. He was able to orient during the night, and became much less agitated, and from that point has been able to get off ativan and precedex. I think he could discharge tomorrow on a librium taper. He does need primary care followup. His plan for post discharge sobriety is meetings and support groups. it is very important to his loved ones that he stop drinking. His was at the bedside for a brief period of time this afternoon. I was able to meet with her. She is trying to encourage intensive outpatient treatment, that might be able to be worked with his work schedule. He is somewhat resistant to this. Since he is not the most reliable historian, we discussed primary care followup. Naye states he has been followed at [facility] previously. has new PCP set up in [place], but not till November. 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 (2) Electrolyte abnormality: Impression: he has not required any repletion today. (3) Elevated LFTs: Impression: 09/28/24 04:38 Total Bilirubin 1.3 H AST 133 H ALT 67 H Alkaline Phosphatase 66 09/26/24 12:24 Total Bilirubin 1.6 H AST 259 H ALT 103 H Alkaline Phosphatase 73 Laboratory Tests 09/30/24 04:37 Total Bilirubin 0.8 AST 113 H ALT 68 H Alkaline Phosphatase 73 Likely related to alcohol use. There is hepatic steatosis seen on CT as well as cholelithiasis. His alkaline phosphatase is within normal limits. Bilirubin is trending down. I will not continue to follow. (4) Thrombocytopenia: Impression: This is new compared to labs historically. We are holding chemical DVT prophylaxis. He has hepatic steatosis on imaging. INR is 1.1 will continue to monitor platelets. No active bleeding 09/26/24 09/27/24 09/28/24 12:24 04:40 04:38 Plt Count 55 L 40 L 29 L* 09/29/24 03:28 Plt Count 44 L 09/30/24 04:37 Plt Count 63 L This patient's diagnosis and treatment plan was discussed this AM with attending physician as a part of multi disciplinary rounding meeting. I have spent 52 minutes in the care of this patient today. This includes time [id number], review and ordering of diagnostic imaging and laboratory studies . Monitoring the patient's signs symptoms, evaluation of medication effectiveness and patient's response to treatment.
[2024-09-30 15:22] LABS: HCT - HEMATOCRIT 40.9 % (42.0-52.0); HGB - HEMOGLOBIN 13.5 g/dL (14.0-18.0); MEAN PLATELET VOLUME 13.3 fL (7.4-11.4); NRBC ABSOLUTE COUNT (AUTO) 0.00 x10^3/uL; NUCLEATED RED BLOOD CELLS AUTO 0.0 /100WBC; PLT - PLATELET COUNT 66 10^3/uL (130-450); RED CELL DISTRIBUTION WIDTH 13.4 % (12.0-15.0)
[2024-09-30 15:25] LABS: SLIDE REVIEW? Indicated
[2024-09-30 15:33] LABS: ALT ALANINE AMINOTRANSFERASE 68.0 IU/L (10-60); AST ASPARTATE AMINOTRANSFERASE 112.0 IU/L (10-42); BUN - BLOOD UREA NITROGEN 8.0 mg/dL (6-20); CARBON DIOXIDE - CO2 29.0 mmol/L (21-32); CREATININE 0.8 mg/dL (0.6-1.3); GFR - MDRD 103.0 (>89)
[2024-09-30 16:03] LABS: PLATELET ESTIMATE, MANUAL DECREASED (<130,000) (NORMAL); PLATELET MORPHOLOGY 1+ GIANT PLATELETS (NORMAL); RBC MORPHOLOGY (MULTIPLE) NORMAL APPEARANCE (NORMAL)
[2024-09-30 16:04] LABS: WBC MORPHOLOGY (MULTIPLE) NORMAL APPEARANCE (NORMAL)
[2024-09-30] MEDS: HYDROcod/ACETAM 10 MG/325 MG TABLET PO PRN (20:24)
[2024-10-01 04:40] LABS: HCT - HEMATOCRIT 41.0 % (42.0-52.0); HGB - HEMOGLOBIN 13.4 g/dL (14.0-18.0); MEAN PLATELET VOLUME 12.4 fL (7.4-11.4); NRBC ABSOLUTE COUNT (AUTO) 0.00 x10^3/uL; NUCLEATED RED BLOOD CELLS AUTO 0.0 /100WBC; PLT - PLATELET COUNT 84 10^3/uL (130-450); RED CELL DISTRIBUTION WIDTH 13.5 % (12.0-15.0)
[2024-10-01 04:49] LABS: SLIDE REVIEW? Indicated
[2024-10-01 04:58] LABS: BUN - BLOOD UREA NITROGEN 9.0 mg/dL (6-20); CARBON DIOXIDE - CO2 29.0 mmol/L (21-32); CREATININE 0.8 mg/dL (0.6-1.3); GFR - MDRD 103.0 (>89)
[2024-10-01 05:20] LABS: PLATELET ESTIMATE, MANUAL DECREASED (<130,000) (NORMAL); PLATELET MORPHOLOGY NORMAL APPEARANCE (NORMAL); RBC MORPHOLOGY (MULTIPLE) 2+ MACROCYTOSIS (NORMAL)
[2024-10-01 05:21] LABS: WBC MORPHOLOGY (MULTIPLE) NORMAL APPEARANCE (NORMAL)
--- NOTE | 2024-10-01 11:34 | Discharge Summary ---
"Discharge Summary Admit Date: 09/26/24 Discharge Date: 10/01/24 Discharging Provider: Christina Hernández PA-C Primary Care Provider: unknown- previously seen at [facility] Code Status: Attempt Resuscitation DIAGNOSES Discharge Diagnoses with Status of Each Condition: Alcohol withdrawal Alcohol addiction Elevated LFTs, resolving Thrombocytopenia HPI History of Present Illness: 48-year-old male history of alcohol abuse who presents to the ER after ground- level fall. His reported to the ED that he had not eaten or slept in 3 days, and had mostly been in bed. She suspects he has not had a drink in 3 days. Spouse reported multiple falls. 1 such fall was after he felt dizzy and hit his head against the dresser. He reports some back pain and right-sided abdominal pain. Denies fever, chills, chest pain, dyspnea, N/V/D In the ER, he was sent for CT head, C-spine, abdomen/pelvis. He had a seizure in the CT scanner lasting about a minute. Imaging was significant for cirrhosis, No traumatic changes. Lab work was significant for mild hyponatremia, hypokalemia, elevated LFTs, CK4 93. UA/UDS negative. Hospitalist was contacted for admission for alcohol withdrawal with alcohol withdrawal seizures/delirium tremens CONSULTS | PROCEDURES Procedures: CT cervical spine: No acute displaced fracture or traumatic subluxation. Cervical spondylosis with multilevel bony foraminal narrowing. CT head: Extensive motion artifact consider repeat imaging HOSPITAL COURSE Hospital Course: Presented to the emergency department in acute alcohol withdrawals approximately 3 days after his last drink. Had come in from home after having a fall. Had a seizure in the CT scanner. Which was treated with Ativan. Did not require intubation. Was transferred to the intensive care unit for treatment of his alcohol withdrawal. Was placed on fixed dose Librium, symptom triggered Ativan and also required Precedex drip. Precedex and Ativan were gradually tapered although in the process of this Librium had to be increased from 25 mg 4 times daily to 50 mg 4 times daily. Electrolytes were replaced per protocol. Patient also was noted to have elevated liver function tests to include bilirubin AST and ALT these were coming down by the time of hospital discharge. Incidentally seen on his admission CT of the abdomen pelvis is cholelithiasis however I doubt his elevated LFTs are due to [place] ductal lithiasis. Patient also was noted to have thrombocytopenia as low as 29,000 platelet count this was also coming up prior to discharge. Discharged home in stable condition. He was advised to stay out of work until 10/13/2024. We are working with social work and outpatient clinics to obtain primary care follow-up for him, he was previously a patient of Dr. Eaton. ALLERGIES Allergies Allergy/AdvReac Type Severity Reaction Status Date / Time No Known Drug Allergies Allergy Verified 09/26/24 11:48 MEDICATIONS Ambulatory Orders Medication Instructions Recorded Confirmed chlordiazepoxide HCl 25 mg capsule See Rx Instructions .Route 10/01/24 .COMPLEX #14 caps hydroxyzine pamoate 25 mg capsule 50 mg (2 x 25 mg) PO Q6H PRN 10/01/24 Insomnia #60 caps nicotine 21 mg/24 hr daily 1 patch topical DAILY #28 e a 10/01/24 transdermal patch vit,calcium 27-ferrous 1 tab PO DAILY #30 tab s 10/01/24 fum 60 mg iron-folic acid 1 mg tablet (Trinatal Rx 1) PHYSICAL EXAM AT DISCHARGE Vital Signs: Vital Signs x48h Temp Pulse Resp BP Pulse Ox 10/01/24 13:00 37.1 C 86 20 142/103 H 95 10/01/24 11:00 73 17 130/87 100 10/01/24 10:00 75 16 120/87 97 Physical Exam Other/Comments: General Appearance: positive No acute distress and Other ( multiple abrasions on his face. ) Eyes Bilateral: positive Normal inspection and Conjunctivae nml ENT: positive ENT inspection nml Neck: positive Nml inspection Respiratory: positive No respiratory distress and Breath sounds nml Cardiovascular: positive Regular rate & rhythm Abdomen: positive No distention Skin: positive Color nml and No rash Extremities: positive Non-tender and No pedal edema Neurologic/Psychiatric: positive Oriented x3 LABS 10/01/24 04:35 10/01/24 04:35 FOLLOW UP Follow Up: At clinic in 7 to 10 days, patient does not have an assigned provider, May benefit from services of bean sorter TIME SPENT Time Spent in Discharge (Minutes): 35 Discharge Plan Discharge Patient Disposition: Home, Self Care Condition: Good Prescriptions: New hydroxyzine pamoate 25 mg Capsule 50 mg PO Q6H PRN (Reason: Insomnia) Qty: 60 0RF chlordiazepoxide HCl 25 mg Capsule See Rx Instructions .ROUTE .COMPLEX Qty: 14 0RF Rx Instructions: 1 cap every 6 hours for 8 doses, 1 cap every 8 hours for 3 doses, 1 cap every 12 hours for 2 doses, then one capsule at bedtime nicotine 21 mg/24 hr Patch 24 Hour 1 patch topical DAILY Qty: 28 0RF Trinatal Rx 1 60 mg iron-1 mg Tablet 1 tab PO DAILY Qty: 30 0RF Discontinued allopurinol 300 mg tablet See Rx Instructions .ROUTE .COMPLEX Qty: 90 0RF Dose Instruction: TAKE 1 TABLET BY MOUTH DAILY Rx Instructions: TAKE 1 TABLET BY MOUTH DAILY Activity Restrictions: Activity as Tolerated Diet: Regular Health Concerns: you came into the hospital with severe alcohol withdrawal. We think you had your last drink on or about September 23. We placed on you medications to help with this, and have been able to wean down your medications so that now you are safe to go home . I am placing you on a taper of medication that is going to help you with the last stages of your withdrawal. you are going to take one dose four times a day for 2 days, then the other doses you will take for one day only. It is normal to feel lots of anxiety as your body finishes the withdrawal process. The medications, help, but they do not make it totally go away, Vistaril is an antihistamine that has been shown to really help with anxiety. It can make you tired, and sleepy, so be aware of this. you need to be seen by primary care sooner than your scheduled appontment in [place]. You last saw Dr Eaton in Mar 2023. I think you could get into [facility], and I am asking our staff to help you do this. you can still keep scheduled followup in [place] in November. If possible, you might really benefit from the help of our mental health nurse practitioners that work at [facility]. They may be able to help you manage your alcohol addiction and anxiety. We have not given you allopurinol since you have been here, you do not need to continue this medication every day. I see a history of elevated blood pressure in your chart. your blood pressure has been normal most of the times we have taken it here, and I do not think you need to be on blood pressure medicine. Care Plan Goals: - never drink alcohol -out of work until 10/13. - librium taper as prescribed. this is a controlled substance- no driving on this. It can make you sleepy, but it will help with the last stages of withdrawal. Print Language: Pashto Patient Instructions: Alcohol Addiction, Alcohol Use Disorder: Getting Help, Alcohol Withdrawal: What to Expect Stand Alone Forms: PCP List Vitals documented within 30 minutes of discharge?: Yes"
[2024-10-01 13:02] VITALS: BP 142/103; TEMP 98.8; O2SAT 95
== END 2024-10-01 13:05 | disposition home or self-care (01) | DRG 897 ==
LOC: ED 11:39 → ICU 15:49
PROVIDERS: ADMIT Nurse Practitioner Acute Care; ATTEND Nurse Practitioner Acute Care
DX: D69.6 Thrombocytopenia, unspecified; W19.XXXA Unspecified fall, initial encounter; K76.0 Fatty (change of) liver, not elsewhere classified; F17.210 Nicotine dependence, cigarettes, uncomplicated; E87.1 Hypo-osmolality and hyponatremia; R74.01 Elevation of levels of liver transaminase levels; R10.9 Unspecified abdominal pain; E87.6 Hypokalemia; G40.89 Other seizures; Z23 Encounter for immunization; K80.20 Calculus of gallbladder without cholecystitis without obstruction; S01.21XA Laceration without foreign body of nose, initial encounter; M54.9 Dorsalgia, unspecified; R74.8 Abnormal levels of other serum enzymes; F10.231 Alcohol dependence with withdrawal delirium; S00.81XA Abrasion of other part of head, initial encounter; F41.9 Anxiety disorder, unspecified